=== PATIENT | male | born 1955 | race Two or more races ===

== ENCOUNTER 2021-01-16 08:38 | Outpatient (REF) | payer MEDICARE, SELFPAY ==
[2021-01-16 08:57] LABS: MANUAL DIFF FLAG NO
[2021-01-16 09:05] LABS: Basophils Percent Auto 0.6 % (0-2); Eosinophils Absolute Auto 0.5 X10*3/uL (0.0-0.4); Eosinophils Percent Auto 7.2 % (0-4); Hematocrit 41.1 % (42.0-52.0); Hemoglobin 13.4 g/dl (14.0-18.0); Imm Gran Abs Auto 0.02 X10*3/uL (0.00-0.03); Imm Gran Pct Auto 0.3 % (0.0-0.4); Mean Corpuscular HGB Conc 32.6 g/dl (31.0-36.0); Mean Corpuscular Hemoglobin 32.3 pg (27.0-33.0); Mean Platelet Volume 9.1 fL (9.4-12.4); Monocytes Absolute Auto 0.6 X10*3/uL (0.1-1.2); Monocytes Percent Auto 9.5 % (2-11); Neutrophils Absolute Auto 3.4 x10*3/uL (2.0-8.3); Neutrophils Percent Auto 52.4 % (45-73); Platelet Count 240 X10*3/uL (160-400); Red Blood Count 4.15 X10*6/uL (4.60-5.80); Red Cell Distribution Width 12.8 % (11.0-16.0); White Blood Count 6.5 X10*3/uL (4.8-10.8)
[2021-01-16 09:29] LABS: Alanine Aminotransferase 8 U/L (0-40); Albumin Level 4.5 g/dL (3.5-5.0); Alkaline Phosphatase 96 U/L (39-117); Anion Gap 10 (12-20); Aspartate Amino Transferase 18 U/L (5-37); Bilirubin Total 0.4 mg/dL (0.0-1.0); Blood Urea Nitrogen 25 mg/dL (9-16); Calcium 9.6 mg/dL (8.4-10.2); Carbon Dioxide 29 mmol/L (22-29); Chloride 106 mmol/L (96-108); Cholesterol 167 mg/dL; Estimated Glomerular Filt Rate > 60; Glucose Fasting 92 mg/dL (60-99); HDL Cholesterol 39 mg/dL; LDL Cholesterol Calculated 115 mg/dl; Potassium 4.1 mmol/L (3.3-5.1); Sodium 141 mmol/L (135-145); Total Protein 7.8 g/dL (6.5-8.0); Triglycerides 67 mg/dL
[2021-01-16 09:40] LABS: Appearance Urine CLEAR; Color Urine YELLOW; Glucose Urine UA NEG (NEG); Leukocyte Esterase Urine NEG (NEG); Nitrite Urine NEG (NEG); Specific Gravity - Urine 1.025 (1.005-1.025); UACC Culture Trigger NO; Urine Blood TRACE (NEG); Urine Ketones NEG (NEG); Urine Protein NEG (NEG-TRACE)
[2021-01-16 09:54] LABS: RBC Urine 0-2 /HPF (0); Squamous Epithelial Cell Urine 1+ /LPF
[2021-01-16 10:15] LABS: Prostate Specific Antigen 4.58 ng/mL (<0.05-4.0); TSH reflex Free T4 0.82 uIU/mL (0.32-4.0); Vitamin D 25-OH Total 21.7 ng/mL (>30)
[2021-01-16 10:21] LABS: Folate 6.7 ng/mL (> or = 4.0); Vitamin B12 349 pg/mL (200-900)
[2021-01-16 10:26] LABS: Syphilis Screen Nonreactive (Nonreactive)
[2021-01-17 13:12] LABS: Lyme Abs Screen <0.90 index
[2021-01-17 20:11] LABS: HCV Log PCR <1.18 NOT DETECTED Log IU/mL (NOT DETECTED); HepC Viral Load <15 NOT DETECTED IU/mL (NOT DETECTED)
== END 2021-01-16 08:39 | disposition home or self-care (01) ==
LOC: HO.LAB 08:38
PROVIDERS: PCP Internal Medicine; Visit Provider Internal Medicine
DX: I10 Essential (primary) hypertension (principal); E55.9 Vitamin D deficiency, unspecified; E78.00 Pure hypercholesterolemia, unspecified; E53.8 Deficiency of other specified B group vitamins; N40.0 Benign prostatic hyperplasia without lower urinary tract symptoms; R41.82 Altered mental status, unspecified; B19.20 Unspecified viral hepatitis C without hepatic coma
CPT/HCPCS: 36415; 80053; 80061; 81001; 82306; 82607; 82746; 84153; 84443; 85025; 86617; 86618; 86780; 87522

== ENCOUNTER 2021-03-30 12:41 | Outpatient (REF) | payer MEDICARE, SELFPAY ==
--- NOTE | ~2021-03-30 | CT_ITS ---
EXAMINATION: CT HEAD WITHOUT CONTRAST CLINICAL INFORMATION: Altered mental status. COMPARISON: None TECHNIQUE: Contiguous axial imaging was performed from the skull base to vertex without intravenous administration of contrast. This CT examination was performed using dose optimization techniques as appropriate, variously including the following: *Automated exposure control *Adjustment of mA and/or kV according to patient size (this includes techniques or standardized protocols for targeted exams where dose is matched to indication/reason for exam; i.e. extremities or head) *Use of iterative reconstruction technique DLP: 721 mGy-cm FINDINGS: There is no evidence of acute intracranial hemorrhage or territorial infarction. No abnormal mass effect or midline shift is seen. Mcgovern to white matter differentiation is well preserved. No extra-axial fluid collections are identified. The lateral ventricles are symmetrical in size and configuration with mild enlargement. The osseous structures and soft tissues are normal. The mastoid air cells and visualized portions of the paranasal sinuses are well aerated. CT/CT head/brain wo con IMPRESSION: No acute intracranial process seen. Mild cerebral volume loss.
== END 2021-03-30 12:42 | disposition home or self-care (01) ==
LOC: HO.CT 12:41
PROVIDERS: PCP Internal Medicine; Visit Provider Internal Medicine
DX: R41.82 Altered mental status, unspecified (principal)
CPT/HCPCS: 70450

== ENCOUNTER 2021-08-26 11:43 | Outpatient (REF) | payer MEDICARE, SELFPAY ==
[2021-08-26 12:00] LABS: MANUAL DIFF FLAG NO
[2021-08-26 13:00] LABS: Basophils Absolute Auto 0.1 X10*3/uL (0.0-0.2); Basophils Percent Auto 0.6 % (0-2); Eosinophils Absolute Auto 0.3 X10*3/uL (0.0-0.4); Eosinophils Percent Auto 3.1 % (0-4); Hematocrit 37.2 % (42.0-52.0); Hemoglobin 11.8 g/dl (14.0-18.0); Imm Gran Abs Auto 0.04 X10*3/uL (0.00-0.03); Imm Gran Pct Auto 0.5 % (0.0-0.4); Lymphocytes Absolute Auto 1.9 X10*3/uL (1.2-4.9); Lymphocytes Percent Auto 23.1 % (20-40); Mean Corpuscular HGB Conc 31.7 g/dl (31.0-36.0); Mean Corpuscular Hemoglobin 31.9 pg (27.0-33.0); Mean Corpuscular Volume 100.5 fL (80.0-98.0); Mean Platelet Volume 10.6 fL (9.4-12.4); Monocytes Absolute Auto 0.6 X10*3/uL (0.1-1.2); Monocytes Percent Auto 7.6 % (2-11); Neutrophils Absolute Auto 5.3 x10*3/uL (2.0-8.3); Neutrophils Percent Auto 65.1 % (45-73); Platelet Count 224 X10*3/uL (160-400); White Blood Count 8.2 X10*3/uL (4.8-10.8)
[2021-08-26 13:52] LABS: Prostate Specific Antigen 2.89 ng/mL (<0.05-4.0); TSH reflex Free T4 0.96 uIU/mL (0.32-4.0); Vitamin D 25-OH Total 29.5 ng/mL (>30)
[2021-08-26 13:56] LABS: Alanine Aminotransferase 7 U/L (0-40); Albumin Level 4.2 g/dL (3.5-5.0); Alkaline Phosphatase 82 U/L (39-117); Anion Gap 11 (12-20); Aspartate Amino Transferase 16 U/L (5-37); Bilirubin Total 0.3 mg/dL (0.0-1.0); Blood Urea Nitrogen 17 mg/dL (9-16); Calcium 9.2 mg/dL (8.4-10.2); Carbon Dioxide 27 mmol/L (22-29); Chloride 106 mmol/L (96-108); Cholesterol 166 mg/dL; Estimated Glomerular Filt Rate > 60; Glucose Fasting 56 mg/dL (60-99); HDL Cholesterol 39 mg/dL; LDL Cholesterol Calculated 116 mg/dl; Potassium 4.1 mmol/L (3.3-5.1); Sodium 140 mmol/L (135-145); Total Protein 7.7 g/dL (6.5-8.0); Triglycerides 58 mg/dL
[2021-08-26 14:04] LABS: Folate 8.5 ng/mL (> or = 4.0); Vitamin B12 401 pg/mL (200-900)
[2021-08-26 14:06] LABS: Appearance Urine CLEAR; Color Urine YELLOW; Glucose Urine UA NEG (NEG); Leukocyte Esterase Urine NEG (NEG); Nitrite Urine NEG (NEG); PH 6.5 (5.0-8.0); Urine Blood NEG (NEG); Urine Ketones NEG (NEG); Urine Protein NEG (NEG-TRACE)
[2021-08-27 05:30] LABS: ~HepC Num1 15.76 S/CO (0.00-0.79); ~Hepatitis C Antibody Reactive (Nonreactive)
[2021-08-29 13:07] LABS: HCV Log PCR <1.18 NOT DETECTED Log IU/mL (NOT DETECTED); HepC Viral Load <15 NOT DETECTED IU/mL (NOT DETECTED)
== END 2021-08-26 11:44 | disposition home or self-care (01) ==
LOC: HO.LAB 11:43
PROVIDERS: PCP Internal Medicine; Visit Provider Internal Medicine
DX: Z00.00 Encounter for general adult medical examination without abnormal findings (principal); Z12.5 Encounter for screening for malignant neoplasm of prostate; R41.82 Altered mental status, unspecified; E78.00 Pure hypercholesterolemia, unspecified; I10 Essential (primary) hypertension; E55.9 Vitamin D deficiency, unspecified; N40.0 Benign prostatic hyperplasia without lower urinary tract symptoms; Z86.19 Personal history of other infectious and parasitic diseases
CPT/HCPCS: 36415; 80053; 80061; 81003; 82306; 82607; 82746; 84153; 84443; 85025; 86803; 87522

== ENCOUNTER 2021-12-28 14:20 | Outpatient (REF) | payer OTHER, SELFPAY ==
--- NOTE | ~2021-12-28 | XR_ITS ---
EXAMINATION: XR KNEE, RIGHT CLINICAL INFORMATION: Pain. COMPARISON: No similar priors available for comparison. TECHNIQUE: Four views of the right knee. FINDINGS: Orthopedic fixation plate with 6 traversing screws along the tibial plateau/proximal tibia. No evidence of hardware failure. Chronic appearing deformity along the lateral surface of the proximal tibia. No acutely displaced fractures. No subluxation. Moderate tricompartmental degenerative osteoarthritis. No erosions or chondrocalcinosis. Small joint effusions. Scattered vascular calcifications. XR/XR knee RT 4V IMPRESSION: 1. No acutely displaced fractures. No subluxation. 2. Orthopedic fixation plate along the tibial plateau/proximal tibia without evidence of hardware failure. 3. Moderate tricompartmental degenerative osteoarthritis. 4. Small joint effusions.
== END 2021-12-28 14:21 | disposition home or self-care (01) ==
LOC: HO.XRAY 14:20
PROVIDERS: PCP Internal Medicine; Visit Provider Internal Medicine
DX: M25.561 Pain in right knee (principal); T84.498A Other mechanical complication of other internal orthopedic devices, implants and grafts, initial encounter
CPT/HCPCS: 73564

== ENCOUNTER → 2022-06-01 16:07 | Outpatient (BNVA) | payer OTHER, SELFPAY | PROVIDERS: PCP Internal Medicine; Visit Provider Nurse Practitioner Family | DX: R10.84 Generalized abdominal pain (principal); R63.4 Abnormal weight loss; D64.9 Anemia, unspecified | CPT/HCPCS: 99202 ==

== ENCOUNTER 2022-06-01 17:56 | Outpatient (REF) | payer OTHER, SELFPAY ==
[2022-06-03 15:01] LABS: H Pylori Breath Test Negative (Negative)
== END 2022-06-01 17:57 | disposition home or self-care (01) ==
LOC: HO.LNP 17:56
PROVIDERS: Visit Provider Nurse Practitioner Family
DX: R10.9 Unspecified abdominal pain (principal); R63.4 Abnormal weight loss; Z11.0 Encounter for screening for intestinal infectious diseases
CPT/HCPCS: 83013

== ENCOUNTER 2022-06-24 10:04 | Outpatient (REF) | payer OTHER, SELFPAY ==
[2022-06-24 10:49] LABS: Hematocrit 33.7 % (42.0-52.0); Hemoglobin 10.4 g/dl (14.0-18.0); Mean Corpuscular HGB Conc 30.9 g/dl (31.0-36.0); Mean Corpuscular Hemoglobin 29.9 pg (27.0-33.0); Mean Corpuscular Volume 96.8 fL (80.0-98.0); Mean Platelet Volume 8.9 fL (9.4-12.4); Platelet Count 405 X10*3/uL (160-400); Red Blood Count 3.48 X10*6/uL (4.60-5.80); White Blood Count 10.2 X10*3/uL (4.8-10.8)
[2022-06-24 11:40] LABS: Alanine Aminotransferase 7 U/L (0-40); Albumin Level 3.5 g/dL (3.5-5.0); Alkaline Phosphatase 78 U/L (39-117); Anion Gap 13 (12-20); Aspartate Amino Transferase 15 U/L (5-37); Bilirubin Total 0.4 mg/dL (0.0-1.0); Blood Urea Nitrogen 19 mg/dL (9-16); C Reactive Protein 8.51 mg/dL (< or = 0.50); Calcium 9.1 mg/dL (8.4-10.2); Carbon Dioxide 26 mmol/L (22-29); Chloride 103 mmol/L (96-108); Estimated Glomerular Filt Rate > 60; Glucose Random 109 mg/dL (60-115); Iron 37 mcg/dL (45-160); Lipase 80 U/L (8-78); Percent Iron Saturation 19 % (15-50); Potassium 4.2 mmol/L (3.3-5.1); Sodium 138 mmol/L (135-145); Total Iron Binding Capacity 190 mcg/dL (228-428); Total Protein 7.3 g/dL (6.5-8.0); Unsaturated Iron Binding 153 ug/dL
[2022-06-24 11:51] LABS: Folate 6.4 ng/mL (> or = 4.0); TSH reflex Free T4 1.57 uIU/mL (0.32-4.0); Vitamin B12 545 pg/mL (200-900)
[2022-06-29 14:47] LABS: Transglutaminase Ab IgG 1.4 U/mL; Transglutaminase IgA <1.0 U/mL
[2022-07-01 12:58] LABS: Vitamin D 25-OH, D2 <4 ng/mL; Vitamin D 25-OH, D3 18 ng/mL; Vitamin D 25-OH, Total 18 ng/mL (30-100)
== END 2022-06-24 10:05 | disposition home or self-care (01) ==
LOC: HO.LAB 10:04
PROVIDERS: PCP Internal Medicine; Visit Provider Nurse Practitioner Family
DX: E55.9 Vitamin D deficiency, unspecified (principal); R19.7 Diarrhea, unspecified; R10.9 Unspecified abdominal pain; K59.00 Constipation, unspecified; D64.9 Anemia, unspecified; K21.9 Gastro-esophageal reflux disease without esophagitis; K58.9 Irritable bowel syndrome, unspecified
CPT/HCPCS: 36415; 80053; 82306; 82607; 82746; 83540; 83690; 84443; 85027; 86140; 86364

== ENCOUNTER 2022-07-01 14:11 | Outpatient (REF) | payer OTHER, SELFPAY ==
[2022-07-09 16:59] LABS: Pancreatic Elastase-1 >500 mcg/g
== END 2022-07-01 14:12 | disposition home or self-care (01) ==
LOC: HO.LNP 14:11
PROVIDERS: Visit Provider Nurse Practitioner Family
DX: R10.9 Unspecified abdominal pain (principal)
CPT/HCPCS: 82656

== ENCOUNTER → 2022-07-21 11:46 | Outpatient (BNVA) | payer OTHER, SELFPAY | PROVIDERS: PCP Internal Medicine; Visit Provider Nurse Practitioner Family | DX: Z01.818 Encounter for other preprocedural examination (principal); R10.84 Generalized abdominal pain; K21.9 Gastro-esophageal reflux disease without esophagitis; Z79.899 Other long term (current) drug therapy | CPT/HCPCS: 99212 ==

== ENCOUNTER 2022-07-23 | Outpatient (REF) | payer OTHER, SELFPAY ==
--- NOTE | ~2022-07-23 | CT_ITS ---
EXAMINATION: LUNG CANCER SCREENING CT CHEST WITHOUT CONTRAST CLINICAL INFORMATION: Current smoker with 44 pack year history COMPARISON: None TECHNIQUE: Multidetector volumetric CT imaging of the chest was obtained noncontrast using low dose screening CT technique. Axial thin section 0.625 mm reformations in soft tissue and lung windows were obtained. Sagittal and coronal reformations were obtained. Axial MIP images were also created and reviewed. This CT examination was performed using dose optimization techniques as appropriate, variously including the following: *Automated exposure control *Adjustment of mA and/or kV according to patient size (this includes techniques or standardized protocols for targeted exams where dose is matched to indication/reason for exam; i.e. extremities or head) *Use of iterative reconstruction technique TOTAL EXAM DLP: 38.16 mGy-cm FINDINGS: PULMONARY NODULES: Extensive fibronodular pleural-parenchymal scarring. The largest discrete nodular component measures 8.1 mm mean diameter as seen on series 5, image 107. This nodular opacity, however, does communicate with the pleural surface. Additional plaque-like pleural-parenchymal scarring present along the lateral right lung apex, measuring up to 3.5 x 1.0 cm transaxially. There are scattered calcified granulomata as well. LUNGS / PLEURA: Moderate emphysema. Diffuse bronchial wall thickening and mild bronchiectasis.. No pleural effusion or pneumothorax. MEDIASTINUM / ALEENA: Heart normal in size without pericardial effusion. Great vessels normal caliber. No lymphadenopathy. Coronary calcifications present. Imaged thyroid gland unremarkable. CHEST WALL / AXILLA: Unremarkable. UPPER ABDOMEN: Simple cyst in the right kidney are benign. No follow-up imaging recommended. Coarse calcifications in the pancreatic head with questionable low density change possibly pancreatic cysts. Pancreatic duct appears dilated. OSSEOUS STRUCTURES: No acute or suspicious osseous abnormalities. CT/CT lung screening IMPRESSION: * Extensive biapical fibronodular pleural-parenchymal scarring strongly suspected to be postinfectious/postinflammatory nature. Nevertheless, given the somewhat nodular appearance of these findings at the right lung apex, a short interval follow-up exam or PET/CT would lend further specificity, particularly in light of the fact that the patient has no recent CT examinations available for comparison at this institution. * Moderate emphysema. * Coarse calcifications within the pancreatic head and possible cystic change. Recommend dynamic MRI of the abdomen for further evaluation. ASSESSMENT: Lung RADS category: 4 A. Suspicious. Findings for which additional diagnostic testing and/or tissue sampling is recommended. Three-month low-dose CT is recommended. PET/CT scan may be used when there is a greater than or equal to 8 mm solid component. Probability of malignancy 5-15%. INCIDENTAL FINDINGS (S CATEGORY): None. RECOMMENDATION: Short interval follow-up CT chest in 3 months or PET/CT. Dynamic MRI of the abdomen.
== END 2022-07-23 00:01 ==
LOC: HO.CT
PROVIDERS: PCP Internal Medicine; Visit Provider Physician Assistant Medical
DX: Z12.2 Encounter for screening for malignant neoplasm of respiratory organs (principal); F17.210 Nicotine dependence, cigarettes, uncomplicated
CPT/HCPCS: 71271; G0296

== ENCOUNTER 2022-07-23 15:33 | Outpatient (REF) | payer OTHER, SELFPAY | END 2022-07-23 15:34 | disposition home or self-care (01) | LOC: HO.CT 15:33 | PROVIDERS: PCP Internal Medicine; Visit Provider Physician Assistant Medical | DX: Z13.89 Encounter for screening for other disorder (principal) ==

== ENCOUNTER 2022-08-20 09:24 | Outpatient (REF) | payer OTHER, SELFPAY ==
--- NOTE | ~2022-08-20 | US_ITS ---
EXAMINATION: US ABDOMEN COMPLETE CLINICAL INFORMATION: Abnormal weight loss. COMPARISON: CT abdomen 10/13/2016. Ultrasound abdomen complete 12/22/2015. TECHNIQUE: Real-time imaging of the abdominal viscera. FINDINGS: PANCREAS: Dilated and tortuous main pancreatic duct. Parenchymal calcifications. ABDOMINAL AORTA: Atherosclerotic changes. INFERIOR VENA CAVA: Visualized portions are normal. LIVER: The liver is normal in size. The liver contour is normal. Parenchymal echogenicity is normal. No focal hepatic lesion. There is no intrahepatic biliary duct dilatation seen. GALLBLADDER: Negative sonographic Granado's sign. The gallbladder is physiologically distended. Multiple mobile gallstones are present. No evidence of gallbladder wall thickening or pericholecystic fluid. COMMON BILE DUCT: Normal in caliber measuring 0.5 cm in diameter. RIGHT KIDNEY: Upper pole cyst measures 1.5 x 1.3 x 1.3 cm. No hydronephrosis or renal calculi. The kidney measures 10.0 cm in maximum dimension. LEFT KIDNEY: Lower pole cyst measures 2.6 x 2.3 x 2.1 cm. Lower pole cyst measures 0.6 x 0.4 x 0.6 cm. No hydronephrosis or renal calculi. The kidney measures 10.0 cm in maximum dimension. SPLEEN: The spleen measures 11.3 cm in maximum dimension. FREE FLUID: None. ADDITIONAL FINDINGS: Small pericardial effusion is incidentally noted. US/US abdomen complete IMPRESSION: Findings suggestive of chronic pancreatitis with dilatation of the main pancreatic duct and parenchymal calcifications. MRI/MRCP may be considered for further characterization. Cholelithiasis without sonographic evidence of acute cholecystitis. Bilateral renal cysts. No suspicious features. Small pericardial effusion.
== END 2022-08-20 09:25 | disposition home or self-care (01) ==
LOC: HO.US 09:24
PROVIDERS: PCP Internal Medicine; Visit Provider Nurse Practitioner
DX: R10.84 Generalized abdominal pain (principal); R63.4 Abnormal weight loss
CPT/HCPCS: 76700

== ENCOUNTER 2022-08-31 10:14 | Day surgery (SDC) | payer OTHER, SELFPAY ==
--- NOTE | 2022-08-30 09:59 | P.CONAN_ITS ---
Documented by User: Maegan Winn NP 08/30/22 10:00 HPI - Anesthesia Eval Consult details Narrative: 67yo M for Upper Endoscopy and Colonoscopy [facility] Active Problems Active Problems: All Active Problems (Updated 07/30/22 @ 14:26 by XIN Gil) Severely underweight adult (Acute) Weight loss, abnormal (Acute) Nicotine dependence, cigarettes, uncomplicated (Acute) Alcoholic dementia (Acute) Mild cognitive impairment (Acute) Depression (Acute) Anxiety (Acute) Insomnia (Acute) Pure hypercholesterolemia (Acute) Abdominal pain (Acute) Exposed orthopaedic hardware (Acute) Right knee pain (Acute) Past Medical History Medical History (Updated 08/05/22 @ 11:09 by Salina Isbell PA-C) Abdominal pain Anxiety Depression History of hepatitis C Nicotine dependence, cigarettes, uncomplicated Pure hypercholesterolemia Tubular adenoma Family History Family History Father Medical history unknown Mother Diabetes Maternal Grandmother Lung cancer Maternal Uncle Colon cancer CVD (cardiovascular disease) Other Substance abuse Surgical History Surgical History History of cataract surgery History of colonoscopy History of shoulder surgery History of surgery on lower extremity Social History Social History (Updated 07/23/22 @ 15:29 by Salina Isbell PA-C) Housing: Apartment Alcohol intake: former Patient Tobacco Use Status: Current everyday Tobacco user Tobacco use type: Cigarette Years Smoked: (onset 13yo, 1ppd x 54yrs, 50pyh) e-Cigarette/Vaping Use: Never Used Second Hand Smoke Exposure: Yes Advance Directives: No Advance Directives Information Provided: Yes service: No Current occupational status: disabled 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) Hearing needs: No Vision needs: No Meds Allergies Allergy/AdvReac Type Severity Reaction Status Date / Time No Known Allergies Allergy Verified 07/21/22 12:02 [No Known Allergies*] Home Medications Medication Instructions Recorded Confirmed Last Taken Type prazosin 1 mg capsule 1 mg PO BEDTIME 01/13/21 08/27/22 Unknown History quetiapine 100 mg tablet 100 mg PO BEDTIME 01/13/21 08/27/22 Unknown History quetiapine 50 mg tablet 50 mg PO BEDTIME 01/13/21 08/27/22 Unknown History donepezil 5 mg tablet 5 mg PO DAILY 08/26/21 08/27/22 Unknown History Exam Exam Date and Time: August 30, 2022 0959 Pertinent Lab Results Pertinent Lab Results: Laboratory Tests 06/24/22 06/24/22 10:16 10:16 WBC 10.2 Hgb 10.4 L Hct 33.7 L Plt Count 405 H D Sodium 138 Potassium 4.2 Chloride 103 Carbon Dioxide 26 BUN 19 H Creatinine 0.96 Assessment and Plan Assessment Anesthesia Assessment: Chart Reviewed Documented by User: Kristy Cuevas MD 08/31/22 10:58 [facility] Past Medical History Medical History (Updated 08/05/22 @ 11:09 by Salina Isbell PA-C) Abdominal pain Anxiety Depression History of hepatitis C Nicotine dependence, cigarettes, uncomplicated Pure hypercholesterolemia Tubular adenoma Family History Family History Father Medical history unknown Mother Diabetes Maternal Grandmother Lung cancer Maternal Uncle Colon cancer CVD (cardiovascular disease) Other Substance abuse Family history of problems with anesthesia: No Surgical History Surgical History History of cataract surgery History of colonoscopy History of shoulder surgery History of surgery on lower extremity History of Problems with Anesthesia: No Social History Social History (Updated 07/23/22 @ 15:29 by Salina Isbell PA-C) Housing: Apartment Alcohol intake: former Patient Tobacco Use Status: Current everyday Tobacco user Tobacco use type: Cigarette Years Smoked: (onset 13yo, 1ppd x 54yrs, 50pyh) e-Cigarette/Vaping Use: Never Used Second Hand Smoke Exposure: Yes Advance Directives: No Advance Directives Information Provided: Yes service: No Current occupational status: disabled 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) Hearing needs: No Vision needs: No Meds Allergies Allergy/AdvReac Type Severity Reaction Status Date / Time No Known Allergies Allergy Verified 07/21/22 12:02 [No Known Allergies*] Home Medications Medication Instructions Recorded Confirmed Last Taken Type prazosin 1 mg capsule 1 mg PO BEDTIME 01/13/21 08/27/22 Unknown History quetiapine 100 mg tablet 100 mg PO BEDTIME 01/13/21 08/27/22 Unknown History quetiapine 50 mg tablet 50 mg PO BEDTIME 01/13/21 08/27/22 Unknown History donepezil 5 mg tablet 5 mg PO DAILY 08/26/21 08/27/22 Unknown History Exam Airway Mallampati Class: III TM Dist: >3cm Neck ROM: Full Denture: Upper and Lower Assessment and Plan Assessment Anesthesia Assessment: Anesthesia Plan Discussed Final Anesthetic Review Family History of Problems with Anesthesia: No History of Problems with Anesthesia: No NPO: Yes ASA Class: III Final Preanesthetic Review: No Changes in Pt Med Stat, Meds/Allgs Chart Reviewed, Consent Obtained/Reviewed and Anes Risks/Benef Reviewed Patient Risk: Low Procedure Risk: Low Anesthetic Plan Anesthetic Plan: MAC: Disposition: Standard PACU
[2022-08-31 11:15] VITALS: BP 105/48; PULSE 84; RESP 16; TEMP 36.1; O2SAT 100; BMI 14.9
[2022-08-31] MEDS: Lactated Ringers 1,000 ML 100 ML IVCONT (11:22)
--- NOTE | 2022-08-31 11:23 | MHC.SHP ---
Pre-Procedural Eval Section A Date of Service: 08/31/22 Section B Chief Complaint: Generalized abdominal pain,weight loss, Relevant Family History (Specify if Yes): No Relevant Social History: Tobacco Use Present Medications: see Short Stay Collaborative assessment Medical History: Significant History (Abdominal pain Anxiety Depression History of hepatitis C Nicotine dependence, cigarettes, uncomplicated Pure hypercholesterolemia Tubular adenoma) History of Previous Operations: Relevant previous surgery/procedure and date(s) (History of cataract surgery History of colonoscopy History of shoulder surgery History of surgery on lower extremity) Allergies: Allergies Allergy/AdvReac Type Severity Reaction Status Date / Time No Known Allergies Allergy Verified 07/21/22 12:02 [No Known Allergies*] Review of Systems Sugical H&P ROS: Negative: Constitution, Cardiovascular, Respiratory, Neurological, Psychiatric, Hem-Onc, Allergic/Immunologic, Gastrointestinal, Genitourinary, Musculoskeletal, Integumentary, Endocrine and Eyes/Ears/Nose/Throat Exam Surgical H&P Exam: Normal: HEENT, Normal: Heart, Normal: Lungs, Normal: Extremities, Normal: Abdomen, Normal: Skin and Normal: Neurological Exam Comment: Thin,clubbing of hands noted Plan Diagnosis/Plan: Unchanged I have reviewed the history and physical and performed a pertinent physical examination on my patient. No changes have occurred unless specified. Time Spent With Patient Time: Total time managing care of this patient today ____ minutes.
--- NOTE | 2022-08-31 11:26 | W.PM.OPN ---
Operative Note Operative Note Date of Service: 08/31/22 Narrative: Procedure Description: EGD Indication: abdominal pain and weight loss Anesthesia: MAC FLEXIBLE TRANSORAL UPPER GASTROINTESTINAL ENDOSCOPY UPPER ENDOSCOPY Consent: Indications for the procedure and potential complications of bleeding, perforation, reaction to medications and missed diagnosis were discussed with the patient and informed consent was obtained. Instrument: Olympus GIF H 190 J mid size upper endoscope Monitoring: Vital signs and clinical assessment, continuous EKG monitoring, Pulse oximetry, Carbon Dioxide monitoring and blood pressure monitoring were done throughout the procedure. Procedure: The patient was placed in the left lateral decubitis position and pre-procedure medications were administered and a bite block was placed. The endoscope was inserted into the mouth and advanced under direct vision to the third part of duodenum. A careful inspection was made as the upper endoscope was withdrawn including a retroflexed examination of the proximal stomach; Findings and interventions are described below. Findings: Larynx:normal Esophagus: GE junction at 41 cm, diaphragm hiatus at 43 cm, consistent with 2 cm sliding hiatal hernia, bogginess and erythema at GEJ, bx taken from here and distal esophagus Stomach: Patchy gastric erythema with induration and granularity at the antrum. Biopsies were obtained from antrum and body in separate jars. Grade 2 flap valve on retroflexed examination of the cardia. Duodenum: Normal bulb and descending duodenum, bx taken Intervention: Biopsies as noted above Impression/Findings: gastritis hiatal hernia esophagitis PLAN: await bx colonoscopy was postponed today due to brown outflow, can r/s with 2 d of clears next time GERD precautions
[2022-08-31 11:47] VITALS: BP 101/58; PULSE 78; RESP 16; TEMP 36.2
[2022-08-31 12:00] VITALS: BP 95/57; PULSE 68; RESP 16; O2SAT 100
[2022-08-31 12:06] VITALS: BP 98/58; PULSE 72; RESP 16; O2SAT 99
[2022-08-31 12:14] VITALS: BP 101/60; PULSE 71; RESP 16; O2SAT 100
[2022-08-31 12:26] VITALS: BP 102/63; PULSE 70; RESP 16; TEMP 36.7; O2SAT 100
== END 2022-08-31 13:15 | disposition home or self-care (01) ==
PROVIDERS: PCP Internal Medicine; Visit Provider Internal Medicine Gastroenterology
PROC: 0DJ08ZZ Inspection of Upper Intestinal Tract, Via Natural or Artificial Opening Endoscopic (ICD-10-PCS; CPT 43235; principal; 2022-08-31 11:40)
DX: K29.50 Unspecified chronic gastritis without bleeding (principal); K20.80 Other esophagitis without bleeding; K44.9 Diaphragmatic hernia without obstruction or gangrene; R63.6 Underweight; R63.4 Abnormal weight loss; Z68.1 Body mass index [BMI] 19.9 or less, adult; D50.9 Iron deficiency anemia, unspecified; E78.00 Pure hypercholesterolemia, unspecified; B19.20 Unspecified viral hepatitis C without hepatic coma; F10.27 Alcohol dependence with alcohol-induced persisting dementia; F17.210 Nicotine dependence, cigarettes, uncomplicated; Z79.899 Other long term (current) drug therapy
CPT/HCPCS: 43239; 88305; 88342

== ENCOUNTER 2022-10-11 12:56 | Outpatient (AMB) | payer OTHER, SELFPAY ==
[2022-10-11 13:27] VITALS: BP 105/61; PULSE 71; BMI 14.1
--- NOTE | 2022-10-11 13:27 | A.OFFVIS_ITS ---
Intake Vital Signs 10/11/22 13:27 Height 5 ft 9 in Weight 95 lb 10.89 oz BMI 14.1 BP 105/61 Blood Pressure Location Lt brachial Position Sitting Pulse 71 Intake Visit Reasons: colonoscopy screening Intake Note: Michael presents in office as a est.patient a colonoscopy screening. 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 Will order CT scan. Patient does have a mild pancreatitis it could be chronic. Screen for colon cancer What to expect before during and after procedure discussed with patient. Patient is on low-dose aspirin. No trouble with anesthesia in the past. Patient denies any cardiac or respiratory symptoms. GERD (gastroesophageal reflux disease) Continue pantoprazole. Discussed with patient avoiding dietary triggers in late night snacking. Will send patient for upper endoscopy to rule out gastritis, esophagitis, duodenitis, gastric or peptic ulcers, H pylori, Sands's. I will see him after the procedure, sooner on as needed basis. Patient is agreeable to this plan and verbalizes understanding of instructions. He was given the opportunity to ask questions and all questions answered. ? Thank you for allowing me to participate in his care Plan Orders Orders Blood Urea Nitrogen 07/21/22 R10.11 Creatinine 07/21/22 R10.11 Medications New bisacodyl (Dulcolax (bisacodyl)) take 2 tabs at noon the day before your colonoscopy 10 mg (2 x 5 mg) PO ONCE 1 day 2 tabs 0RF Z12.11 polyethylene glycol 3350 (Miralax) As directed by gastroenterology department at [facility] 238 grams PO ONCE 238 grams 0RF Z12.11 UPPER ENDOSCOPY: Findings: Larynx:normal Esophagus: GE junction at 41? cm, diaphragm hiatus at 43 cm, consistent with 2 cm sliding hiatal hernia, bogginess and erythema at GEJ, bx taken from here and distal esophagus Stomach: Patchy gastric erythema with induration and granularity at the antrum. Biopsies were obtained from antrum and body in separate jars. Grade 2 flap valve on retroflexed examination of the cardia. Duodenum: Normal bulb and descending duodenum, bx taken Intervention: Biopsies as noted above Impression/Findings: gastritis hiatal hernia esophagitis PLAN: await bx colonoscopy was postponed today due to brown outflow, can r/s with 2 d of clears next time GERD precautions PATHOLOGY RESULTS: Diagnosis A.? Duodenum, biopsy:? Duodenal mucosa within normal limits. B.? Stomach, antrum, biopsy:? Antral-type and oxyntic mucosa with mild chronic inactive inflammation and intestinal metaplasia; negative for dysplasia; no Helicobacter organisms seen. C.? Stomach, body, biopsy:? Oxyntic mucosa with mild chronic inactive inflammation; no Helicobacter organisms seen. D.? EG junction, biopsy: - Cardiac-type mucosa with mild chronic inactive inflammation; no intestinal metaplasia seen. - Squamous mucosa within normal limits. E.? Esophagus, distal, biopsy:? Squamous epithelium within normal limits; no inflammation seen. [facility] Medical History (Updated 10/11/22 @ 20:12 by Aliya Sena, [facility]) Abdominal pain Anxiety Depression Gastritis History of hepatitis C Nicotine dependence, cigarettes, uncomplicated Pure hypercholesterolemia Tubular adenoma Surgical History History of cataract surgery History of colonoscopy History of shoulder surgery History of surgery on lower extremity Family History Father Medical history unknown Mother Diabetes Maternal Grandmother Lung cancer Maternal Uncle Colon cancer CVD (cardiovascular disease) Other Substance abuse Social History Housing: Apartment Alcohol intake: former Patient Tobacco Use Status: Never used Tobacco Tobacco use type: Cigarette Years Smoked: (onset 13yo, 1ppd x 54yrs, 50pyh) e-Cigarette/Vaping Use: Never Used Second Hand Smoke Exposure: Yes service: No Current occupational status: disabled 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) Hearing needs: No Vision needs: No Review of Systems Const Denies weight gain and Denies weight loss ENT Reports no additional complaints, Denies dysphagia and Denies odynophagia Card Reports no additional complaints Resp Reports no additional complaints GI Reports abdominal pain (Epigastric), Denies belching, Denies melena, Reports bloating, Denies change in bowel habits, Denies dysphagia, Denies excessive flatus, Reports dyspepsia, Reports heartburn, Denies diarrhea, Denies loose stools, Denies nausea, Denies odynophagia and Denies vomiting Reports no additional complaints Musc Reports no additional complaints Neuro Reports no additional complaints Psych Reports no additional complaints Endo Reports no additional complaints Physical Exam Vital Signs: Last Vital Signs Pulse 71 10/11/22 13:27 BP 105/61 10/11/22 13:27 BMI result Body Mass Index 14.1 Const General: healthy appearing, no acute distress and well developed Nutritional Appearance: malnourished Orientation/consciousness: patient oriented x3 HEENT Head: Yes normal to inspection, Yes normocephalic and Yes atraumatic Face and sinus: Yes normal facial exam Mouth: Normal oral and palatal mucosa present Throat: Yes posterior oropharynx normal, Yes tonsils normal and Yes uvula midline Eyes General: appearance normal, both eyes and all related structures Neck Neck: Yes normal visual inspection, Yes full ROM and Yes trachea midline Thyroid: Thyroid normal Resp Effort & Inspection: normal respiratory effort, able to speak in complete sentences, no tracheal deviation and symmetric chest movement Auscultation: clear to auscultation bilaterally Cardio Rate: regular rate Heart sounds: S1 normal heart sound present and S2 normal heart sound present GI Inspection: Yes normal to inspection and No distended Palpation (GI): Soft to palpation, not firm, nontender and No hepatosplenomegaly present Auscultation: normal bowel sounds General: Yes no CVA tenderness Back/Spine/Pelvis Back: no CVA tenderness Skin General skin exam: elasticity normal, turgor normal and dry skin Neuro General: patient oriented x3 Psych Appearance: grossly normal Mental Status: mental status grossly normal Speech and movement: Normal speech and movement present Affect: normal affect Assessment & Plan Assessment & Plan (1) Severely underweight adult: Code(s): R63.6 - Underweight Plan: Patient continues to lose weight. Patient does not much appetite. Patient's family is present. Patient's nephew takes care of him and he states that he drinks 10 cups of coffee a day and smokes cigarettes each time he drinks coffee. Patient was encouraged to stop drinking coffee or at least decrease the amount to 1 or 2 cups a day. Protein shakes encouraged instead. (2) Abdominal pain: Code(s): R10.9 - Unspecified abdominal pain Qualifiers: Abdominal location: epigastric Qualified Code(s): R10.13 - Epigastric pain Plan: Epigastric discomfort. Patient was diagnosed with gastritis and esophagitis. Continue PPI treatment as well as sucralfate at bedtime. (3) Gastritis: Code(s): K29.70 - Gastritis, unspecified, without bleeding Qualifiers: Gastritis type: other gastritis Chronicity: chronic Gastritis bleeding: without bleeding Qualified Code(s): K29.50 - Unspecified chronic gastritis without bleeding Plan: PPI and sucralfate. Avoid dietary triggers (4) Screen for colon cancer: Code(s): Z12.11 - Encounter for screening for malignant neoplasm of colon Plan: Patient had suboptimal prep and had not gone for colonoscopy. Patient will do 1 day clears and will do Dulcolax 1 week before the procedure. Patient yearly underweight and clear liquids 2 days before procedure recommended (5) GERD (gastroesophageal reflux disease): Code(s): K21.9 - Gastro-esophageal reflux disease without esophagitis Qualifiers: Esophagitis presence: with esophagitis Esophagitis bleeding: without hemorrhage Qualified Code(s): K21.00 - Gastro-esophageal reflux disease with esophagitis, without bleeding Plan: As mentioned above patient will continue to take PPI. For now will try it once a day with sucralfate at bedtime. Avoid dietary triggers like coffee. Eat small amounts and more often. Patient was also encouraged to stop smoking. (6) Esophagitis: Code(s): K20.90 - Esophagitis, unspecified without bleeding Plan: Esophagitis found on upper endoscopy. Will repeat upper endoscopy on as needed basis. Patient encouraged avoiding culprit, stop smoking. Avoid eating late at night I will see patient after the procedure, sooner on as needed basis. Patient is agreeable to this plan and verbalizes understanding of instructions. He was given the opportunity to ask questions and all questions answered. Thank you for allowing me to participate in care Medications: New bisacodyl (Dulcolax (bisacodyl)) Start taking 2 tablet every night 7 days before the procedure and 1 day before procedure take 2 tablets at noon time followed by MiraLax prep 10 mg (2 x 5 mg) PO BEDTIME 14 tabs 0RF Z12.11 - Encounter for screening for malignant neoplasm of colon sucralfate 10 mL PO BEDTIME 400 mL 3RF K21.9 - Gastro-esophageal reflux disease without esophagitis Refilled polyethylene glycol 3350 (Miralax) As directed by gastroenterology department at [facility] 238 grams PO ONCE 238 grams 0RF Z12.11 - Encounter for screening for malignant neoplasm of colon Discontinued bisacodyl (Dulcolax (bisacodyl)) take 2 tabs at noon the day before your colonoscopy Discontinued Reason: Doctor's Order 10 mg (2 x 5 mg) PO ONCE 1 day 2 tabs 0RF Z12.11 - Encounter for screening for malignant neoplasm of colon Coding Level of Care Code Est Pt Level 4 (33166) Diagnoses Severely underweight adult R63.6 Abdominal pain R10.13 Abdominal location: epigastric Gastritis K29.50 Gastritis type: other gastritis Chronicity: chronic Gastritis bleeding: without bleeding Screen for colon cancer Z12.11 GERD (gastroesophageal reflux disease) K21.00 Esophagitis presence: with esophagitis Esophagitis bleeding: without hemorrhage Esophagitis K20.90 Time Spent (min) 45 Comment 25 minute spent with patient and additional 20 minutes spent reviewing his records
== END 2022-10-11 14:30 | disposition home or self-care (01) ==
PROVIDERS: PCP Internal Medicine; Visit Provider Nurse Practitioner Family
DX: R63.6 Underweight (principal); R10.13 Epigastric pain; K29.50 Unspecified chronic gastritis without bleeding; Z12.11 Encounter for screening for malignant neoplasm of colon; K21.00 Gastro-esophageal reflux disease with esophagitis, without bleeding; K20.90 Esophagitis, unspecified without bleeding
CPT/HCPCS: 99214

== ENCOUNTER → 2022-10-11 12:56 | Outpatient (BNVA) | payer OTHER, SELFPAY | PROVIDERS: PCP Internal Medicine; Visit Provider Nurse Practitioner Family | DX: R63.6 Underweight (principal); R10.13 Epigastric pain; K21.00 Gastro-esophageal reflux disease with esophagitis, without bleeding; K29.50 Unspecified chronic gastritis without bleeding; F17.210 Nicotine dependence, cigarettes, uncomplicated; Z68.1 Body mass index [BMI] 19.9 or less, adult | CPT/HCPCS: 99212 ==

== ENCOUNTER 2022-10-20 10:00 | Day surgery (SDC) | payer OTHER, SELFPAY ==
--- NOTE | 2022-10-19 10:54 | HO.ANESPROP2 ---
Documented by User: Maegan Winn NP 10/19/22 10:57 HPI - Anesthesia Eval Consult details Narrative: 67yo M for Colonoscopy s/p EGD and [place] 08/2022 with TIVA PMFSH Active Problems Active Problems: All Active Problems (Updated 10/11/22 @ 20:12 by Aliya Sena, [facility]) Gastritis (Acute) Severely underweight adult (Acute) Weight loss, abnormal (Acute) Nicotine dependence, cigarettes, uncomplicated (Acute) Alcoholic dementia (Acute) Mild cognitive impairment (Acute) Depression (Acute) Anxiety (Acute) Insomnia (Acute) Pure hypercholesterolemia (Acute) Abdominal pain (Acute) Exposed orthopaedic hardware (Acute) Right knee pain (Acute) Past Medical History Medical History Abdominal pain Anxiety Depression Gastritis History of hepatitis C Nicotine dependence, cigarettes, uncomplicated Pure hypercholesterolemia Tubular adenoma Family History Family History Father Medical history unknown Mother Diabetes Maternal Grandmother Lung cancer Maternal Uncle Colon cancer CVD (cardiovascular disease) Other Substance abuse Family history of problems with anesthesia: No Surgical History Surgical History History of cataract surgery History of colonoscopy History of shoulder surgery History of surgery on lower extremity History of Problems with Anesthesia: No Social History Social History Housing: Apartment Alcohol intake: former Patient Tobacco Use Status: Current everyday Tobacco user Tobacco use type: Cigarette Years Smoked: (onset 13yo, 1ppd x 54yrs, 50pyh) e-Cigarette/Vaping Use: Never Used Second Hand Smoke Exposure: Yes Are you DNR?: No Advance Directives: No Advance Directives Information Provided: Yes How much weight loss: 24-33 pounds Nutrition Risks: No Nutritional Risk service: No Current occupational status: disabled 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) Hearing needs: No Vision needs: No Meds Allergies Allergy/AdvReac Type Severity Reaction Status Date / Time No Known Allergies Allergy Verified 10/11/22 13:28 [No Known Allergies*] Home Medications Medication Instructions Recorded Confirmed Last Taken Type prazosin 1 mg capsule 1 mg PO BEDTIME 01/13/21 08/27/22 Unknown History quetiapine 100 mg tablet 100 mg PO BEDTIME 01/13/21 08/27/22 Unknown History quetiapine 50 mg tablet 50 mg PO BEDTIME 01/13/21 08/27/22 Unknown History donepezil 5 mg tablet 5 mg PO DAILY 08/26/21 08/27/22 Unknown History Exam Exam Date and Time: October 19, 2022 1054 Pertinent Lab Results Pertinent Lab Results: Laboratory Tests 06/24/22 06/24/22 10:16 10:16 WBC 10.2 Hgb 10.4 L Hct 33.7 L Plt Count 405 H D Sodium 138 Potassium 4.2 Chloride 103 Carbon Dioxide 26 BUN 19 H Creatinine 0.96 Assessment and Plan Assessment Anesthesia Assessment: Chart Reviewed Final Anesthetic Review Family History of Problems with Anesthesia: No History of Problems with Anesthesia: No Documented by User: Radha Franco MD 10/20/22 11:03 HPI - Anesthesia Eval Consult details Narrative: 67yo M for Colonoscopy s/p EGD and [place] 08/2022 with TIVA (190mg propofol + lido) PMFSH Active Problems Active Problems: All Active Problems (Updated 10/20/22 @10:50 by Radha Franco MD) Gastritis (Acute) Severely underweight adult (Acute) Weight loss, abnormal (Acute) Nicotine dependence, cigarettes, uncomplicated (Acute) Alcoholic dementia (Acute) Mild cognitive impairment (Acute) Depression (Acute) Anxiety (Acute) Insomnia (Acute) Pure hypercholesterolemia (Acute) Abdominal pain (Acute) Exposed orthopaedic hardware (Acute) Right knee pain (Acute) Past Medical History Medical History Abdominal pain Anxiety Depression Gastritis History of hepatitis C Nicotine dependence, cigarettes, uncomplicated Pure hypercholesterolemia Tubular adenoma Family History Family History Father Medical history unknown Mother Diabetes Maternal Grandmother Lung cancer Maternal Uncle Colon cancer CVD (cardiovascular disease) Other Substance abuse Surgical History Surgical History History of cataract surgery History of colonoscopy History of shoulder surgery History of surgery on lower extremity Social History Social History Housing: Apartment Alcohol intake: former Patient Tobacco Use Status: Current everyday Tobacco user Tobacco use type: Cigarette Years Smoked: (onset 13yo, 1ppd x 54yrs, 50pyh) e-Cigarette/Vaping Use: Never Used Second Hand Smoke Exposure: Yes Are you DNR?: No Advance Directives: No Advance Directives Information Provided: Yes How much weight loss: 24-33 pounds Nutrition Risks: No Nutritional Risk service: No Current occupational status: disabled 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) Hearing needs: No Vision needs: No Meds Allergies Allergy/AdvReac Type Severity Reaction Status Date / Time No Known Allergies Allergy Verified 10/11/22 13:28 [No Known Allergies*] Home Medications Medication Instructions Recorded Confirmed Last Taken Type prazosin 1 mg capsule 1 mg PO BEDTIME 01/13/21 08/27/22 Unknown History quetiapine 100 mg tablet 100 mg PO BEDTIME 01/13/21 08/27/22 Unknown History quetiapine 50 mg tablet 50 mg PO BEDTIME 01/13/21 08/27/22 Unknown History donepezil 5 mg tablet 5 mg PO DAILY 08/26/21 08/27/22 Unknown History Exam Height,Weight and Vital Signs: Height 5 ft 9 in Weight 42.638 kg Vital Signs Temp Pulse Resp BP Pulse Ox O2 Del Method 10/20/22 10:30 97 F 95 20 106/68 96 Room Air 10/20/22 10:28 88 18 Airway Mallampati Class: II TM Dist: >3cm Neck ROM: Full Loose/Missing/Broken Teeth: Yes (Edentulous) Heart: RRR Lungs: CTAB. Diminished Assessment and Plan Assessment Anesthesia Assessment: Anesthesia Plan Discussed Final Anesthetic Review NPO: Yes ASA Class: III Final Preanesthetic Review: No Changes in Pt Med Stat, Meds/Allgs Chart Reviewed, Consent Obtained/Reviewed and Anes Risks/Benef Reviewed Patient Risk: Intermediate Procedure Risk: Low Assessment/Block/Sedation in SS: Assess/Block/Sedation-SS Anesthetic Plan Anesthetic Plan: MAC: Disposition: Standard PACU
[2022-10-20] VITALS (15 sets, daily range): BP systolic 58–106; BP diastolic 30–68; PULSE 64–95; RESP 12–27; TEMP 36.1–36.6; O2SAT 96–100; BMI 13.9
[2022-10-20] MEDS: Albuterol Sulfate (0.083%) 2.5 MG/3 ML VIAL.NEB INHALE (10:27)
--- NOTE | 2022-10-20 10:35 | PC.NURSE ---
PT VERY FRAIL LOOING STEADY GAIT TO BEDSIDE STS LOS GREATER THAN 20 POUNDS IN 1 MTH DENIES PAIN LS DIMISHED AFTER RESP TX
--- NOTE | 2022-10-20 10:42 | MHC.SHP ---
Pre-Procedural Eval Section A Date of Service: 10/20/22 Section B Chief Complaint: screening Relevant Family History (Specify if Yes): No Relevant Social History: Tobacco Use Present Medications: see Short Stay Collaborative assessment Medical History: Significant History (Abdominal pain Anxiety Depression Gastritis History of hepatitis C Nicotine dependence, cigarettes, uncomplicated Pure hypercholesterolemia Tubular adenoma) History of Previous Operations: Relevant previous surgery/procedure and date(s) (History of cataract surgery History of colonoscopy History of shoulder surgery History of surgery on lower extremity) Allergies: Allergies Allergy/AdvReac Type Severity Reaction Status Date / Time No Known Allergies Allergy Verified 10/11/22 13:28 [No Known Allergies*] Review of Systems Sugical H&P ROS: Negative: Constitution, Cardiovascular, Respiratory, Neurological, Psychiatric, Hem-Onc, Allergic/Immunologic, Gastrointestinal, Genitourinary, Musculoskeletal, Integumentary, Endocrine and Eyes/Ears/Nose/Throat Exam Surgical H&P Exam: Normal: HEENT, Normal: Heart, Normal: Lungs, Normal: Extremities, Normal: Abdomen, Normal: Skin and Normal: Neurological Exam Comment: thin, underweight Plan Diagnosis/Plan: Unchanged I have reviewed the history and physical and performed a pertinent physical examination on my patient. No changes have occurred unless specified. Time Spent With Patient Time: Total time managing care of this patient today ____ minutes.
[2022-10-20] MEDS: Lactated Ringers 1,000 ML 100 ML IVCONT (10:52)
--- NOTE | 2022-10-20 12:44 | W.PM.OPN ---
Operative Note Operative Note Date of Service: 10/20/22 Narrative: Operative Information Procedure Description: Colonoscopy Indication: screening Anesthesia: MAC COLONOSCOPY Instrument: Olympus variable stiffness pediatric scope 190L Colonoscopy Monitoring: Vital signs and clinical assessment, continuous EKG monitoring, Pulse oximetry, Carbon Dioxide monitoring and blood pressure monitoring were done throughout the procedure. Colon withdrawal time was 11 minutes. Procedure: The patient was placed in the left lateral decubitis position and pre-procedure medications were administered. After a digital rectal examination of the ano-rectum, the video colonoscope was inserted into the rectum and advanced through the colon to the cecum/TI. The colonoscope was slowly withdrawn in a retrograde panoramic fashion and the colon mucosa was carefully examined including a retroflexed view of the rectum. Findings and interventions are described below. Procedure Difficulty: difficult due to tortuous colon Findings: Terminal Ileum-normal Cecum:normal Ascending Colon: normal Transverse Colon -normal Descending Colon:normal Sigmoid Colon: normal Rectum: Retroflexion with small internal hemorrhoids, grade I Anorectum - normal Colon preparation: [place] Bowel Preparation Scale Right colon; 2 Transverse colon: 2 Left colon; 2 (0 = Unprepared colon segment with mucosa not seen due to solid stool that cannot be cleared. 1 = Portion of mucosa of the colon segment seen, but other areas of the colon segment not well seen due to staining, residual stool and/or opaque liquid. 2 = Minor amount of residual staining, small fragments of stool and/or opaque liquid, but mucosa of colon segment seen well. 3 = Entire mucosa of colon segment seen well with no residual staining, small fragments of stool or opaque liquid) Impression and Post Procedure Diagnosis: tortuous colon internal hemorrhoids, small Plan: High fiber diet leaflet Avoid straining at stool, epsom salts and sitz bath, anusol supps or cream Repeat Colonoscopy in 10 years or earlier if clinically indicated Above findings were reviewed with the patient and relevant handouts were provided if indicated.
== END 2022-10-20 15:36 | disposition home or self-care (01) ==
PROVIDERS: PCP Internal Medicine; Visit Provider Internal Medicine Gastroenterology
PROC: 0DJD8ZZ Inspection of Lower Intestinal Tract, Via Natural or Artificial Opening Endoscopic (ICD-10-PCS; CPT 45378; principal; 2022-10-20 14:40)
DX: Z12.11 Encounter for screening for malignant neoplasm of colon (principal); Z86.010 Personal history of colon polyps; K64.0 First degree hemorrhoids; K59.00 Constipation, unspecified; Q43.8 Other specified congenital malformations of intestine; K29.70 Gastritis, unspecified, without bleeding; R63.6 Underweight; Z68.1 Body mass index [BMI] 19.9 or less, adult; K44.9 Diaphragmatic hernia without obstruction or gangrene; K21.00 Gastro-esophageal reflux disease with esophagitis, without bleeding; Z79.899 Other long term (current) drug therapy; Z86.19 Personal history of other infectious and parasitic diseases
CPT/HCPCS: G0105; 94640; J2371; J3010

== ENCOUNTER → 2022-10-20 10:00 | Outpatient (BNV) | payer OTHER, SELFPAY | PROVIDERS: PCP Internal Medicine; Visit Provider Internal Medicine Gastroenterology | DX: Z12.11 Encounter for screening for malignant neoplasm of colon (principal); K64.0 First degree hemorrhoids | CPT/HCPCS: G0121 ==

== ENCOUNTER 2022-11-01 13:35 | Outpatient (AMB) | payer OTHER, SELFPAY ==
[2022-11-01 13:41] VITALS: BP 93/54; PULSE 60; BMI 13.7
--- NOTE | 2022-11-01 13:41 | MHC.OFFVIS ---
Intake Vital Signs 11/01/22 13:41 Height 5 ft 8 in Weight 90 lb BMI 13.7 BP 93/54 L Blood Pressure Location Lt brachial Position Sitting Pulse 60 Intake Visit Reasons: s/p colon Andino Intake Note: Michael presents in office as a est.patient for a post-op for a colonoscopy screening. pt got colo done 10.20.22 PT CC: pt reports no concerns pt denies any other GI Issues Accompanied by: HEAD ORTHOPEDIC TEAM PHYSICIAN Allergies No Known Allergies [No Known Allergies*] Allergy (Verified 11/01/22 13:45) HPI s/p colon Andino HPI Details LAST VISIT Severely underweight adult Patient continues to lose weight. Patient does not much appetite. Patient's family is present. Patient's nephew takes care of him and he states that he drinks 10 cups of coffee a day and smokes cigarettes each time he drinks coffee. Patient was encouraged to stop drinking coffee or at least decrease the amount to 1 or 2 cups a day. Protein shakes encouraged instead. Abdominal pain Epigastric discomfort. Patient was diagnosed with gastritis and esophagitis. Continue PPI treatment as well as sucralfate at bedtime. Gastritis PPI and sucralfate. Avoid dietary triggers Screen for colon cancer Patient had suboptimal prep and had not gone for colonoscopy. Patient will do 1 day clears and will do Dulcolax 1 week before the procedure. Patient yearly underweight and clear liquids 2 days before procedure recommended GERD (gastroesophageal reflux disease) As mentioned above patient will continue to take PPI. For now will try it once a day with sucralfate at bedtime. Avoid dietary triggers like coffee. Eat small amounts and more often. Patient was also encouraged to stop smoking. Esophagitis Esophagitis found on upper endoscopy. Will repeat upper endoscopy on as needed basis. Patient encouraged avoiding culprit, stop smoking. Avoid eating late at night I will see patient after the procedure, sooner on as needed basis. Patient is agreeable to this plan and verbalizes understanding of instructions. He was given the opportunity to ask questions and all questions answered. ? Thank you for allowing me to participate in care Plan Medications New bisacodyl (Dulcolax (bisacodyl)) Start taking 2 tablet every night 7 days before the procedure and 1 day before procedure take 2 tablets at noon time followed by MiraLax prep 10 mg (2 x 5 mg) PO BEDTIME 14 tabs 0RF Z12.11 sucralfate 10 mL PO BEDTIME 400 mL 3RF K21.9 Refilled polyethylene glycol 3350 (Miralax) As directed by gastroenterology department at [facility] 238 grams PO ONCE 238 grams 0RF Z12.11 Discontinued bisacodyl (Dulcolax (bisacodyl)) take 2 tabs at noon the day before your colonoscopy Discontinued Reason: Doctor's Order 10 mg (2 x 5 mg) PO ONCE 1 day 2 tabs 0RF Z12.11 COLONOSCOPY: Findings: Terminal Ileum-normal Cecum:normal Ascending Colon: normal Transverse Colon -normal Descending Colon:normal Sigmoid Colon:? normal Rectum: Retroflexion with small internal hemorrhoids, grade I Anorectum - normal Colon preparation: [facility] Bowel Preparation Scale Right colon; 2 Transverse colon: 2 Left colon; 2 (0 = Unprepared colon segment with mucosa not seen due to solid stool that cannot be cleared. 1 = Portion of mucosa of the colon segment seen, but other areas of the colon segment not well seen due to staining, residual stool and/or opaque liquid. 2 = Minor amount of residual staining, small fragments of stool and/or opaque liquid, but mucosa of colon segment seen well. 3 = Entire mucosa of colon segment seen well with no residual staining, small fragments of stool or opaque liquid) Impression and Post Procedure Diagnosis: tortuous colon internal hemorrhoids, small Plan: High fiber diet leaflet Avoid straining at stool, epsom salts and sitz bath, anusol supps or cream Repeat Colonoscopy in 10 years or earlier if clinically indicated TODAY'S VISIT Patient is here today for follow-up and to discuss colonoscopy results. Patient had no polyps and colonoscopy recommended to be repeated in 10 years, sooner if clinically necessary. Patient denies melena, hematochezia. Patient continues to lose weight. Patient does not have much appetite. Awaiting to go to CT scan, approval just came through last Tuesday. Will try to schedule patient for procedure this week. Patient is leaving to go to [place] next week for a month with his family. Patient reports that he drinks several cups of coffee every day. He also smokes cigarettes. Patient denies dyspepsia, dysphagia or odynophagia. Reports occasional epigastric discomfort and acid reflux. Patient denies any nausea or vomiting. [facility] Medical History Abdominal pain Anxiety Depression Gastritis History of hepatitis C Nicotine dependence, cigarettes, uncomplicated Pure hypercholesterolemia Tubular adenoma Surgical History History of cataract surgery History of colonoscopy History of shoulder surgery History of surgery on lower extremity Family History Father Medical history unknown Mother Diabetes Maternal Grandmother Lung cancer Maternal Uncle Colon cancer CVD (cardiovascular disease) Other Substance abuse Social History Housing: Apartment Alcohol intake: former Patient Tobacco Use Status: Current everyday Tobacco user Tobacco use type: Cigarette Years Smoked: (onset 13yo, 1ppd x 54yrs, 50pyh) e-Cigarette/Vaping Use: Never Used Second Hand Smoke Exposure: Yes service: No Current occupational status: disabled 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) Hearing needs: No Vision needs: No Review of Systems Const Denies weight gain and Denies weight loss ENT Reports no additional complaints, Denies dysphagia and Denies odynophagia Card Reports no additional complaints Resp Reports no additional complaints GI Denies abdominal pain, Denies belching, Denies melena, Denies bloating, Denies change in bowel habits, Denies dysphagia, Denies excessive flatus, Denies dyspepsia, Reports heartburn (Occasional), Denies diarrhea, Denies loose stools, Denies nausea, Denies odynophagia and Denies vomiting Reports no additional complaints Musc Reports no additional complaints Neuro Reports no additional complaints Psych Reports no additional complaints Endo Reports no additional complaints Physical Exam Vital Signs: Last Vital Signs Pulse 60 11/01/22 13:41 BP 93/54 L 11/01/22 13:41 BMI result Body Mass Index 13.7 Const General: cooperative, comfortable, no acute distress and well groomed Nutritional Appearance: malnourished Orientation/consciousness: patient oriented x3 HEENT Head: Yes normal to inspection, Yes normocephalic and Yes atraumatic Face and sinus: Yes normal facial exam Mouth: Normal oral and palatal mucosa present Throat: Yes posterior oropharynx normal, Yes tonsils normal and Yes uvula midline Eyes General: appearance normal, both eyes and all related structures Neck Neck: Yes normal visual inspection, Yes full ROM and Yes trachea midline Thyroid: Thyroid normal Resp Effort & Inspection: normal respiratory effort, able to speak in complete sentences, no tracheal deviation and symmetric chest movement Auscultation: clear to auscultation bilaterally Cardio Rate: regular rate Heart sounds: S1 normal heart sound present and S2 normal heart sound present GI Inspection: Yes normal to inspection and No distended Palpation (GI): Soft to palpation, not firm, nontender and No hepatosplenomegaly present Auscultation: normal bowel sounds General: Yes no CVA tenderness Back/Spine/Pelvis Back: no CVA tenderness Skin General skin exam: elasticity normal, turgor normal and dry skin Neuro General: patient oriented x3 Psych Appearance: grossly normal Mental Status: mental status grossly normal Speech and movement: Normal speech and movement present Assessment & Plan Assessment & Plan (1) Gastritis: Code(s): K29.70 - Gastritis, unspecified, without bleeding Qualifiers: Gastritis type: other gastritis Chronicity: chronic Gastritis bleeding: without bleeding Qualified Code(s): K29.50 - Unspecified chronic gastritis without bleeding Plan: Continue pantoprazole and sucralfate. Patient will continue avoiding dietary triggers. Patient does not eat that much. Encourage patient to eat more often. Stop drinking coffee or replace it with smaller amount and less often. (2) Severely underweight adult: Code(s): R63.6 - Underweight Plan: Patient is going for CT scan this week. Appointment scheduled for this at 13:30. Patient will go and get blood work done today. Patient denies any nausea or vomiting. Patient will try protein powder in his coffee and dry to drink less coffee and less often. (3) GERD (gastroesophageal reflux disease): Code(s): K21.9 - Gastro-esophageal reflux disease without esophagitis Qualifiers: Esophagitis presence: with esophagitis Esophagitis bleeding: without hemorrhage Qualified Code(s): K21.00 - Gastro-esophageal reflux disease with esophagitis, without bleeding Plan: Continue PPI therapy and sucralfate. Avoid dietary triggers only dissecting. Staying upright for minimal 3 hours after meals discussed with the patient avoid drinking coffee. Patient will be seen in 6 weeks, sooner on as needed basis. Patient is agreeable to this plan and verbalizes understanding of instructions. He was given the opportunity to ask questions and all questions answered. Thank you for allowing me to participate in his care Orders: Orders Blood Urea Nitrogen Today R10.11 - Right upper quadrant pain Creatinine Today R10.11 - Right upper quadrant pain Medications: Refilled pantoprazole take one tablet half an hour before breakfast 40 mg PO DAILY 90 tabs 2RF K21.9 - Gastro-esophageal reflux disease without esophagitis Coding Level of Care Code Est Pt Level 3 (09493) Diagnoses Gastritis K29.50 Gastritis type: other gastritis Chronicity: chronic Gastritis bleeding: without bleeding Severely underweight adult R63.6 GERD (gastroesophageal reflux disease) K21.00 Esophagitis presence: with esophagitis Esophagitis bleeding: without hemorrhage Time Spent (min) 30 Comment 20 minutes spent with patient and additional 10 minutes spent reviewing his records
== END 2022-11-01 14:31 | disposition home or self-care (01) ==
PROVIDERS: PCP Internal Medicine; Visit Provider Nurse Practitioner Family
DX: K29.50 Unspecified chronic gastritis without bleeding (principal); R63.6 Underweight; K21.00 Gastro-esophageal reflux disease with esophagitis, without bleeding
CPT/HCPCS: 99213

== ENCOUNTER 2022-11-01 13:35 | Outpatient (REF) | payer OTHER, SELFPAY ==
[2022-11-01 15:58] LABS: Blood Urea Nitrogen 17 mg/dL (9-16); Estimated Glomerular Filt Rate > 60
== END 2022-11-01 13:36 | disposition home or self-care (01) ==
LOC: HO.LAB 13:35
PROVIDERS: PCP Internal Medicine; Visit Provider Nurse Practitioner Family
DX: R10.11 Right upper quadrant pain (principal)
CPT/HCPCS: 36415; 82565; 84520; 99212

== ENCOUNTER 2022-11-04 13:15 | Outpatient (REF) | payer OTHER, SELFPAY ==
--- NOTE | ~2022-11-04 | CT_ITS ---
EXAMINATION: CT ABDOMEN AND PELVIS WITH CONTRAST CLINICAL INFORMATION: Unspecified abdominal pain. COMPARISON: Abdominal ultrasound 08/20/2022 CT abdomen 10/13/2016 TECHNIQUE: Multidetector volumetric images were obtained from the superior aspect of the liver through the pubic symphysis following administration 85 mL of Omnipaque 350 intravenous contrast. Sagittal and coronal reformatted images were obtained on the technologist's workstation. Oral contrast: No This CT examination was performed using dose optimization techniques as appropriate, variously including the following: *Automated exposure control *Adjustment of mA and/or kV according to patient size (this includes techniques or standardized protocols for targeted exams where dose is matched to indication/reason for exam; i.e. extremities or head) *Use of iterative reconstruction technique DLP: 202 mGy-cm FINDINGS: Motion artifact technically degrades image quality. LUNG BASES: The visualized lung bases are unremarkable. LIVER, GALLBLADDER, AND BILIARY TREE: The liver is decreased in attenuation. No focal hepatic lesion or biliary ductal dilatation is present. The gallbladder is unremarkable with no evidence of radiopaque gallstones, gallbladder wall thickening, or obvious pericholecystic inflammatory changes. PANCREAS: Coarse pancreatic parenchymal calcifications. Atrophic pancreas with tortuous and dilated main pancreatic duct. No peripancreatic stranding. SPLEEN: Not enlarged. ADRENAL GLANDS: No adrenal mass. KIDNEYS AND URETERS: The kidneys are symmetric in size and enhancement. Bilateral simple renal cysts. No further imaging follow-up is needed. No hydronephrosis or perinephric stranding. BLADDER: Decompressed. GASTROINTESTINAL TRACT: Overall paucity of intra-abdominal fat as well as the lack of administered enteric contrast limits evaluation the bowel. No small bowel obstruction. ABDOMINAL WALL: No significant hernia is appreciated. LYMPH NODES: No bulky abdominal or pelvic lymphadenopathy VASCULAR: Normal caliber abdominal aorta. PELVIC VISCERA: Unremarkable. OSSEOUS STRUCTURES: No destructive bone lesion. CT/CT abdomen pelvis w IV con IMPRESSION: Chronic pancreatitis. Progressive atrophy of the pancreas with probable tortuosity and dilatation of the main pancreatic duct. Increased parenchymal calcifications.
[2022-11-04] MEDS: iohexoL 350 MG/ML 100 ML INFUS..BTL 85 ML IV (14:13)
== END 2022-11-04 13:16 | disposition home or self-care (01) ==
LOC: HO.CT 13:15
PROVIDERS: PCP Internal Medicine; Visit Provider Nurse Practitioner Family
DX: K29.50 Unspecified chronic gastritis without bleeding (principal); R10.9 Unspecified abdominal pain; R63.6 Underweight
CPT/HCPCS: 74177; Q9967

== ENCOUNTER 2022-12-07 11:09 | Outpatient (REF) | payer OTHER, SELFPAY | END 2022-12-07 11:10 | disposition home or self-care (01) | LOC: HO.CT 11:09 | PROVIDERS: PCP Internal Medicine; Visit Provider Physician Assistant Medical | DX: J94.8 Other specified pleural conditions (principal); R91.1 Solitary pulmonary nodule; F17.210 Nicotine dependence, cigarettes, uncomplicated | CPT/HCPCS: 71250 ==

== ENCOUNTER 2022-12-13 14:52 | Outpatient (AMB) | payer OTHER, SELFPAY ==
[2022-12-13 15:03] VITALS: BP 96/64; PULSE 84; O2SAT 98; BMI 13.8
--- NOTE | 2022-12-13 15:03 | A.OFFPC_ITS ---
Vital Signs 12/13/22 15:03 Height 5 ft 8 in Weight 91 lb BMI 13.8 BP 96/64 Blood Pressure Location Lt brachial Position Sitting Pulse 84 Pulse Source Pulse Oximeter Pulse Oximetry (%) 98 Oxygen Delivery Method Room Air Intake Visit Reasons: Discuss Medication / Weight Loss Grill Cook Required: No Accompanied by: Self / Same As Patient Allergies No Known Allergies [No Known Allergies*] Allergy (Verified 11/24/23 12:17) Medication List - Last Reconciled 11/24/23 by Deion Shafer MD [ADULT PULL UPS (small) As directed] albuterol sulfate 90 mcg/actuation (Ventolin HFA) 2 puffs inhalation Q4-6H PRN [BED RAIL As directed] [DISPOSABLE GLOVES (medium) As directed] donepezil 5 mg PO DAILY food supplemt, lactose-reduced (Ensure oral liquid) 1 ea PO .TID with meals pantoprazole 40 mg PO DAILY prazosin 1 mg PO BEDTIME quetiapine 50 mg PO BEDTIME [SHOWER CHAIR As directed] sucralfate 10 mL PO BEDTIME umeclidinium-vilanterol 62.5-25 mcg/actuation (Anoro Ellipta) 1 inh inhalation DAILY 30 days Tobacco use date assessed: 12/13/22 Fall risk assessment: 1 Fall in past year Last assessed Fall Risk: 12/13/22 Dental Screening Dental Screen Date: 12/13/22 Did you have a dental visit in the last 12 months?: No Did you have a dental problem in the last 6 months where you did not have access to dental care?: No Was dental information given to patient?: No HPI Discuss Medication / Weight Loss HPI Details Patient comes in today for his follow up visit - is accompanied as usual by his [id number] today, who provides most of his information as patient is unable to reliably provide them due to his dementia Patient still lives at home with family and his [id number]-[id number] states that someone is with him all the time (27/09) to help keep watch him His family states that keyla has been complaining of increasing bilateral knee and leg pain for a while now There has been no recent injury or trauma to his legs and knees as far as they are aware of that may have contributed to his leg and knees pains They are also concerned about patient's weight and is wondering if he can be given Rx for Ensure for nutritional supplementation Patient states that he feels okay otherwise He denies any headaches or dizziness Denies any chest pains, no increased SOB No nausea/vomiting, no abdominal pain No change in bowel habits noted [facility] Medical History (Updated 11/24/23 @ 12:19 by Deion Shafer MD) Osteoarthritis of both knees Gastritis Tubular adenoma Nicotine dependence, cigarettes, uncomplicated Abdominal pain Depression Anxiety History of hepatitis C Pure hypercholesterolemia Surgical History History of surgery on lower extremity History of shoulder surgery History of colonoscopy History of esophagogastroduodenoscopy (EGD) History of cataract surgery Family History Father Medical history unknown Mother Diabetes Maternal Grandmother Lung cancer Maternal Uncle Colon cancer CVD (cardiovascular disease) Other Substance abuse Social History Housing: Apartment Alcohol intake: former Patient Tobacco Use Status: Current everyday Tobacco user Tobacco use type: Cigarette Cigarettes Per Day: 12 Years Smoked: (onset 13yo, 1ppd x 54yrs, 50pyh) e-Cigarette/Vaping Use: Never Used Second Hand Smoke Exposure: Yes service: No Current occupational status: disabled 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) Hearing needs: No Vision needs: No Questionnaire PHQ-9 Over the last 2 weeks, how often have you been bothered by any of the following problems? 1. Little interest or pleasure in doing things: not at all 2. Feeling down, depressed, or hopeless: several days 3. Trouble falling or staying asleep, or sleeping too much: several days 4. Feeling tired or having little energy: not at all 5. Poor appetite or overeating: not at all 6. Feeling bad about yourself - or that you are a failure or have let yourself or your family down: not at all 7. Trouble concentrating on things, such as reading the newspaper or watching television: not at all 8. Moving or speaking so slowly that other people could have noticed. Or the opposite - being so fidgety or restless that you have been moving around a lot more than usual: not at all 9. Thoughts that you would be better off or of hurting yourself in some way: not at all Total score: 2 Depression Screening Interpretation: Negative Depression Screening Done: Yes 72283 - PHQ-9 Billing: Yes Source: Developed by Drs. Rex Sy, Barb Tucker, Dominic Gamino and colleagues, with an educational rojelio from [employer]. Thrive Questionnaire Date Thrive assessed: 12/13/22 I am a: Patient What is your living situation today?: I have a steady place to live Within the past 12 months, did the food you bought not last and you didn't have the money to get more?: Never true Within the past 12 months, did you worry whether your food would run out before you got money to buy more?: Never true Do you have trouble paying for medicines?: No Do you have trouble getting transportation to medical appointments?: No Do you have trouble paying your heating and electricity bill?: No Do you have trouble taking care of your child, family member or friend?: No Do you have trouble with day-to-day activities such as bathing, preparing meals, shopping, managing finances, etc.?: No Are you currently unemployed and looking for a job?: No Are you interested in more education?: No Please select the resources that you would like help with: None Currently or been in a relationship where the following occur: no concerns reported AUDIT C Alcohol Use Questionnaire (AUDIT-C) 1. How often do you have a drink containing alcohol?: Never 2. How many drinks containing alcohol do you have on a typical day when you are drinking?: 1 or 2 3. How often do you have six or more drinks on one occasion?: Never Total Score: 0 Score Reviewed/Action Taken: Yes SCOTT-7 AMB Questionnaire SCOTT-7 Date SCOTT - 7 assessed: 12/13/22 Feeling nervous, anxious, or on edge: 0 = Not at all Not being able to stop or control worryin = Not at all Worrying too much about different things: 0 = Not at all Trouble relaxin = Not at all Being so restless that it is hard to sit still: 0 = Not at all Becoming easily annoyed or irritable: 0 = Not at all Feeling afraid as if something awful might happen: 0 = Not at all Total SCOTT-7 score (0-4 normal; 5-9 mild; 10-14 moderate; 15-21 severe): 0 Source: Developed by Drs. Rex Sy, Barb Tucker, Dominic Gamino and colleagues, with an educational rojelio from [employer]. Review of Systems Const Unobtainable due to mental status (ROS obtained primarily from patient's [id number] - patient is confused) Denies chills, Denies difficulty sleeping, Denies fever(s), Denies headache(s) and Denies poor appetite ENT Denies dysphagia, Denies dizziness, Denies headache(s), Denies neck pain, Denies odynophagia and Denies sore throat Card Denies chest pain, Denies palpitations and Denies dyspnea Resp Denies cough and Denies dyspnea GI Details: per [id number]-[id number], he used to not eat much throughout the day and just drinks coffee and watches television but he has gotten better at this lately and is now eating whenever they give him something Denies abdominal pain, Denies constipation, Denies dysphagia, Reports fecal incontinence (wears adult diapers), Denies diarrhea, Denies nausea, Denies odynophagia and Denies vomiting Denies dysuria and Reports urinary incontinence Musc Denies back pain, Reports arthralgias (both knees and both lower leg) and Denies neck pain Skin/Breast Denies rash Neuro Denies behavioral changes, Reports confusion, Denies dizziness and Denies headache(s) Psych Denies behavioral changes and Reports confusion Endo Denies palpitations Physical exam (Primary Care) Vital Signs: Last Vital Signs Pulse 84 12/13/22 15:03 BP 96/64 12/13/22 15:03 Pulse Ox 98 12/13/22 15:03 Oxygen Delivery Method Room Air 12/13/22 15:03 BMI result Body Mass Index 13.8 Tobacco/Smoking Status: Tobacco use Status Tobacco use date assessed 12/13/22 12/13/22 15:04 Patient Tobacco Use Status Current everyday Tobacco 12/13/22 15:04 Tobacco use type Cigarette 12/13/22 15:04 e-Cigarette/Vaping Use Never Used 12/13/22 15:04 PHQ-9: PHQ-9 Score PHQ-9: Total score 2 12/13/22 15:41 Depression Screening Interpretation: Negative Thrive Assessment: Date of Thrive Assessment Date Thrive assessed 12/13/22 12/13/22 15:04 Currently or been in a relationship where the following occur: no concerns reported Const General: confusion Orientation/consciousness: confusion HENMT Ears: TM's normal bilaterally and EAC's normal Throat: Yes posterior oropharynx normal and Yes tonsils normal (no TP congestion noted) Neck Neck: Yes no lymphadenopathy and Yes supple Thyroid: Thyroid normal Resp Auscultation: clear to auscultation bilaterally, no rales and no wheezes Cardio Rate: regular rate Rhythm: regular rhythm Heart sounds: no murmurs GI Palpation (GI): Soft to palpation, nontender and no guarding Auscultation: normal bowel sounds General: Yes no CVA tenderness Back/Spine/Pelvis Back: no CVA tenderness Thoracic/Lumbar Spine: No lumbar spinal tenderness Skin Rashes: no rashes Neuro General: confusion Extrem Other: (+) multiple screws are prominently visible over the anteromedial aspect of the right knee; (+) minimal tenderness noted on exam; no swelling of the knee joint noted General: Yes no clubbing, cyanosis or edema Right lower extremity: knee Details: tenderness (mild); no swelling and lower leg Details: tenderness Left lower extremity: knee Details: tenderness; no swelling and lower leg Details: tenderness Assessment and Plan Assessment & Plan (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 Qualifiers: Dementia behavioral disturbance: without behavioral disturbance Qualified Code(s): F10.27 - Alcohol dependence with alcohol-induced persisting dementia Plan: Head CT done in March 2021 came out grossly normal Patient used to drink alcohol heavily for years when he was younger but has reportedly quit a few years ago, per family He was seen by neurology last year and was diagnosed with dementia and MCI and started on Donepezil - continue Donepezil 5 mg QD Follow up with neurology as scheduled (2) Mild cognitive impairment: Comment: (+) some memory loss Code(s): G31.84 - Mild cognitive impairment of uncertain or unknown etiology Plan: Continue Donepezil 5 mg QD Follow up with neurology as scheduled (3) Gastritis: Code(s): K29.70 - Gastritis, unspecified, without bleeding Qualifiers: Gastritis type: other gastritis Chronicity: chronic Gastritis bleeding: without bleeding Qualified Code(s): K29.50 - Unspecified chronic gastritis without bleeding Plan: Reinforced dietary restrictions Continue Carafate 10 ml Q HS and Pantoprazole 40 mg QD Follow up with GI as scheduled (4) Pure hypercholesterolemia: Code(s): E78.00 - Pure hypercholesterolemia, unspecified Plan: He has not had any follow up labs done in a while now - will send him for some labs TREVON for follow up Reinforced low cholesterol diet (5) Anemia: Code(s): D64.9 - Anemia, unspecified Qualifiers: Anemia type: unspecified type Qualified Code(s): D64.9 - Anemia, unspecified Plan: Will recheck his CBC TREVON and will continue to monitor his CBC regularly (6) COPD (chronic obstructive pulmonary disease): Code(s): J44.9 - Chronic obstructive pulmonary disease, unspecified Qualifiers: COPD type: emphysema Emphysema type: other Qualified Code(s): J43.8 - Other emphysema Plan: Patient had biapical opacities initially seen on routine lung cancer screening CT PET scan done a few months ago revealed minimal to no tracer avidity involving the lung apices bilaterally; (+) persistent moderate to severe paraseptal emphysematous disease at both upper lobes - no findings concerning for malignancy Continue Anoro Ellipta 62.5-25 mcg 1 inhalation QD and Albuterol HFA 2 inhalations Q 6 hours PRN Follow up with pulmonary as scheduled (7) Knee pain, bilateral: Code(s): M25.561 - Pain in right knee; M25.562 - Pain in left knee Qualifiers: Chronicity: unspecified Qualified Code(s): M25.561 - Pain in right knee; M25.562 - Pain in left knee Plan: Will send patient for x-rays of both knees for further evaluation (8) Leg pain, bilateral: Code(s): M79.604 - Pain in right leg; M79.605 - Pain in left leg Plan: Will send him for bilateral lower leg x-rays for further evaluation (9) History of hepatitis C: Comment: (s/p Tx with [facility]) Code(s): Z86.19 - Personal history of other infectious and parasitic diseases Plan: Hepatitis C viral load last checked a couple of years ago came out negligible Repeat hepatitis C viral load last year came back negligible Follow up with GI as scheduled (10) Anxiety: Code(s): F41.9 - Anxiety disorder, unspecified Plan: Continue Prazosin 1 mg QHS (11) Depression: Code(s): F32.A - Depression, unspecified Qualifiers: Depression Type: major depressive disorder Major depression recurrence: recurrent Active/Remission status: currently active Major depression episode severity: unspecified Qualified Code(s): F33.9 - Major depressive disorder, recurrent, unspecified Plan: Continue Quetiapine 50 mg Q HS - dose was reportedly recently lowered by psychiatry Follow up with psychiatry as scheduled (12) Smoker: Code(s): F17.200 - Nicotine dependence, unspecified, uncomplicated Plan: He has tried and appears to have failed nicotine patches and they have not even helped patient cut back on his smoking Counseling on smoking cessation is impractical due to patient's altered mental status (13) Severely underweight adult: Code(s): R63.6 - Underweight Plan: Will start patient on Ensure nutritional supplements Plan Follow up in 3 months Orders: Orders Comprehensive Met. Panel 12/17/22 R63.6 - Underweight, F03.90 - Unspecified dementia, unspecified severity, without behavioral disturbance, psychotic disturbance, mood disturbance, and anxiety Complete Blood Count Auto Diff 12/17/22 I10 - Essential (primary) hypertension, R63.6 - Underweight, F03.90 - Unspecified dementia, unspecified severity, without behavioral disturbance, psychotic disturbance, mood disturbance, and anxiety Vitamin D 25-OH Total 12/17/22 E55.9 - Vitamin D deficiency, unspecified, R63.6 - Underweight, F03.90 - Unspecified dementia, unspecified severity, without behavioral disturbance, psychotic disturbance, mood disturbance, and anxiety XR tibia fibula LT 2V 12/17/22 M79.604 - Pain in right leg, M79.605 - Pain in left leg, R22.43 - Localized swelling, mass and lump, lower limb, bilateral XR knee LT 4V 12/17/22 M25.561 - Pain in right knee, M25.562 - Pain in left knee XR knee RT 4V 12/17/22 M25.561 - Pain in right knee, M25.562 - Pain in left knee XR chest 2V 12/17/22 J98.8 - Other specified respiratory disorders, F17.200 - Nicotine dependence, unspecified, uncomplicated TSH reflex Free T4 12/17/22 E78.00 - Pure hypercholesterolemia, unspecified, R63.6 - Underweight, F03.90 - Unspecified dementia, unspecified severity, without behavioral disturbance, psychotic disturbance, mood disturbance, and anxiety UA CC w/rflx Micro + Cult 12/17/22 R30.0 - Dysuria, R63.6 - Underweight, F03.90 - Unspecified dementia, unspecified severity, without behavioral disturbance, p sychotic disturbance, mood disturbance, and anxiety Vitamin B12 and Folate 12/17/22 E53.8 - Deficiency of other specified B group vitamins, R63.6 - Underweight, F03.90 - Unspecified dementia, unspecified severity, without behavioral disturbance, psychotic disturbance, mood disturbance, and anxiety XR tibia fibula RT 2V 12/17/22 M79.604 - Pain in right leg, M79.605 - Pain in left leg, R22.43 - Localized swelling, mass and lump, lower limb, bilateral Medications: New food supplemt, lactose-reduced (Ensure oral liquid) 1 ea PO .TID with meals 90 multiple units 11RF R63.6 - Underweight, F03.90 - Unspecified dementia, unspecified severity, without behavioral disturbance, psychotic disturbance, mood disturbance, and anxiety, R62.7 - Adult failure to thrive Coding Level of Care Code Est Pt Level 4 (95656) Diagnoses 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 Dementia behavioral disturbance: without behavioral disturbance Mild cognitive impairment G31.84 Other chronic gastritis without hemorrhage K29.50 Gastritis type: other gastritis Chronicity: chronic Gastritis bleeding: without bleeding Pure hypercholesterolemia E78.00 Anemia, unspecified type D64.9 Anemia type: unspecified type Other emphysema J43.8 COPD type: emphysema Emphysema type: other Pain in both knees, unspecified chronicity M25.561; M25.562 Chronicity: unspecified Leg pain, bilateral M79.604; M79.605 History of hepatitis C Z86.19 Anxiety F41.9 Episode of recurrent major depressive disorder, unspecified depression episode severity F33.9 Depression Type: major depressive disorder Major depression recurrence: recurrent Active/Remission status: currently active Major depression episode severity: unspecified Smoker F17.200 Severely underweight adult R63.6
== END 2022-12-13 15:44 | disposition home or self-care (01) ==
PROVIDERS: PCP Internal Medicine; Visit Provider Internal Medicine
DX: F10.27 Alcohol dependence with alcohol-induced persisting dementia (principal); G31.84 Mild cognitive impairment of uncertain or unknown etiology; K29.50 Unspecified chronic gastritis without bleeding; E78.00 Pure hypercholesterolemia, unspecified; D64.9 Anemia, unspecified; M25.561 Pain in right knee; M25.562 Pain in left knee; M79.604 Pain in right leg; M79.605 Pain in left leg; Z86.19 Personal history of other infectious and parasitic diseases; F41.9 Anxiety disorder, unspecified
CPT/HCPCS: 99499

== ENCOUNTER 2022-12-17 12:01 | Outpatient (REF) | payer OTHER, SELFPAY ==
--- NOTE | ~2022-12-17 | XR_ITS ---
EXAMINATION: XR BILATERAL KNEES, BILATERAL TIBIA/FIBULA CLINICAL INFORMATION: Bilateral knee pain COMPARISON: Right knee 12/28/2021 TECHNIQUE: Four views each of the bilateral knees. 2 views of the bilateral tibia and fibula. Please note that the distal aspects of the bilateral tibia and fibula were incompletely imaged, and dedicated views should be obtained for adequate visualization is indicated. FINDINGS: RIGHT KNEE/TIBIA/FIBULA: Redemonstration of orthopedic fixation plate with screws traversing the tibial plateau/proximal tibia. Hardware appears intact. Similar appearance of deformity along the lateral surface of the proximal tibia. Small joint effusion. Scattered soft tissue calcifications, likely vascular. Mild tricompartmental degenerative changes. LEFT KNEE/TIBIA/FIBULA: Mild degenerative changes with tiny osteophytes and mild joint space narrowing. Small anterior inferior anterior patellar spurs. Extensive deformities at the proximal third of the tibia and fibula are characteristic of prior trauma XR/XR tibia fibula RT 2V IMPRESSION: 1. Postsurgical changes right knee and lower leg. Hardware appears intact. 2. Deformity in the bilateral lower legs as detailed above characteristic of prior trauma. Correlation with clinical exam and history recommended to determine further management. Additional imaging with CT scan or MRI should be considered for better visualization as these modalities are much more sensitive for detection of fracture or other underlying pathology.
--- NOTE | ~2022-12-17 | XR_ITS ---
EXAMINATION: XR BILATERAL KNEES, BILATERAL TIBIA/FIBULA CLINICAL INFORMATION: Bilateral knee pain COMPARISON: Right knee 12/28/2021 TECHNIQUE: Four views each of the bilateral knees. 2 views of the bilateral tibia and fibula. Please note that the distal aspects of the bilateral tibia and fibula were incompletely imaged, and dedicated views should be obtained for adequate visualization is indicated. FINDINGS: RIGHT KNEE/TIBIA/FIBULA: Redemonstration of orthopedic fixation plate with screws traversing the tibial plateau/proximal tibia. Hardware appears intact. Similar appearance of deformity along the lateral surface of the proximal tibia. Small joint effusion. Scattered soft tissue calcifications, likely vascular. Mild tricompartmental degenerative changes. LEFT KNEE/TIBIA/FIBULA: Mild degenerative changes with tiny osteophytes and mild joint space narrowing. Small anterior inferior anterior patellar spurs. Extensive deformities at the proximal third of the tibia and fibula are characteristic of prior trauma XR/XR knee LT 4V IMPRESSION: 1. Postsurgical changes right knee and lower leg. Hardware appears intact. 2. Deformity in the bilateral lower legs as detailed above characteristic of prior trauma. Correlation with clinical exam and history recommended to determine further management. Additional imaging with CT scan or MRI should be considered for better visualization as these modalities are much more sensitive for detection of fracture or other underlying pathology.
--- NOTE | ~2022-12-17 | XR_ITS ---
EXAMINATION: XR BILATERAL KNEES, BILATERAL TIBIA/FIBULA CLINICAL INFORMATION: Bilateral knee pain COMPARISON: Right knee 12/28/2021 TECHNIQUE: Four views each of the bilateral knees. 2 views of the bilateral tibia and fibula. Please note that the distal aspects of the bilateral tibia and fibula were incompletely imaged, and dedicated views should be obtained for adequate visualization is indicated. FINDINGS: RIGHT KNEE/TIBIA/FIBULA: Redemonstration of orthopedic fixation plate with screws traversing the tibial plateau/proximal tibia. Hardware appears intact. Similar appearance of deformity along the lateral surface of the proximal tibia. Small joint effusion. Scattered soft tissue calcifications, likely vascular. Mild tricompartmental degenerative changes. LEFT KNEE/TIBIA/FIBULA: Mild degenerative changes with tiny osteophytes and mild joint space narrowing. Small anterior inferior anterior patellar spurs. Extensive deformities at the proximal third of the tibia and fibula are characteristic of prior trauma XR/XR knee RT 4V IMPRESSION: 1. Postsurgical changes right knee and lower leg. Hardware appears intact. 2. Deformity in the bilateral lower legs as detailed above characteristic of prior trauma. Correlation with clinical exam and history recommended to determine further management. Additional imaging with CT scan or MRI should be considered for better visualization as these modalities are much more sensitive for detection of fracture or other underlying pathology.
--- NOTE | ~2022-12-17 | XR_ITS ---
EXAMINATION: XR CHEST CLINICAL INFORMATION: Other specified respiratory disorders COMPARISON: Chest 01/10/2019, lung cancer screening chest CT 12/07/2022 TECHNIQUE: 2 views of the chest were obtained. FINDINGS: The lungs are hyperinflated. No focal consolidation. No pneumothorax. Right apical fibronodular pleural parenchymal scarring with right upper lateral broad-based irregular thickening with 1.0 cm nodular component extending from the pleural surface of the right apex. Mild left apical pleural thickening. The cardiomediastinal silhouette is within normal limits. There are no pleural effusions. Surgical clips are seen in the right axilla. Stable mild anterior compression fracture in the upper thoracic spine. XR/XR chest 2V IMPRESSION: Biapical fibronodular pleural parenchymal scarring. 3 month follow-up LDCT has been recommended based on study of 12/07/2022. 1.0 cm nodular component extending from the pleural surface of the right apex. No acute cardiopulmonary disease.
--- NOTE | ~2022-12-17 | XR_ITS ---
EXAMINATION: XR BILATERAL KNEES, BILATERAL TIBIA/FIBULA CLINICAL INFORMATION: Bilateral knee pain COMPARISON: Right knee 12/28/2021 TECHNIQUE: Four views each of the bilateral knees. 2 views of the bilateral tibia and fibula. Please note that the distal aspects of the bilateral tibia and fibula were incompletely imaged, and dedicated views should be obtained for adequate visualization is indicated. FINDINGS: RIGHT KNEE/TIBIA/FIBULA: Redemonstration of orthopedic fixation plate with screws traversing the tibial plateau/proximal tibia. Hardware appears intact. Similar appearance of deformity along the lateral surface of the proximal tibia. Small joint effusion. Scattered soft tissue calcifications, likely vascular. Mild tricompartmental degenerative changes. LEFT KNEE/TIBIA/FIBULA: Mild degenerative changes with tiny osteophytes and mild joint space narrowing. Small anterior inferior anterior patellar spurs. Extensive deformities at the proximal third of the tibia and fibula are characteristic of prior trauma XR/XR tibia fibula LT 2V IMPRESSION: 1. Postsurgical changes right knee and lower leg. Hardware appears intact. 2. Deformity in the bilateral lower legs as detailed above characteristic of prior trauma. Correlation with clinical exam and history recommended to determine further management. Additional imaging with CT scan or MRI should be considered for better visualization as these modalities are much more sensitive for detection of fracture or other underlying pathology.
[2022-12-17 12:15] LABS: MANUAL DIFF FLAG NO
[2022-12-17 12:47] LABS: Basophils Absolute Auto 0.1 X10*3/uL (0.0-0.2); Basophils Percent Auto 0.5 % (0-2); Eosinophils Absolute Auto 0.3 X10*3/uL (0.0-0.4); Eosinophils Percent Auto 2.1 % (0-4); Hematocrit 30.5 % (42.0-52.0); Hemoglobin 9.7 g/dl (14.0-18.0); Imm Gran Abs Auto 0.07 X10*3/uL (0.00-0.03); Imm Gran Pct Auto 0.5 % (0.0-0.4); Lymphocytes Absolute Auto 2.6 X10*3/uL (1.2-4.9); Lymphocytes Percent Auto 20.4 % (20-40); Mean Corpuscular HGB Conc 31.8 g/dl (31.0-36.0); Mean Corpuscular Hemoglobin 30.4 pg (27.0-33.0); Mean Corpuscular Volume 95.6 fL (80.0-98.0); Mean Platelet Volume 8.6 fL (9.4-12.4); Monocytes Absolute Auto 0.9 X10*3/uL (0.1-1.2); Monocytes Percent Auto 6.8 % (2-11); Neutrophils Absolute Auto 8.9 x10*3/uL (2.0-8.3); Neutrophils Percent Auto 69.7 % (45-73); Platelet Count 424 X10*3/uL (160-400); Red Blood Count 3.19 X10*6/uL (4.60-5.80); Red Cell Distribution Width 13.6 % (11.0-16.0); White Blood Count 12.8 X10*3/uL (4.8-10.8)
[2022-12-17 13:30] LABS: Alanine Aminotransferase < 5 U/L (0-40); Albumin Level 3.4 g/dL (3.5-5.0); Alkaline Phosphatase 79 U/L (39-117); Anion Gap 14 (12-20); Aspartate Amino Transferase 12 U/L (5-37); Bilirubin Total 0.4 mg/dL (0.0-1.0); Blood Urea Nitrogen 15 mg/dL (9-16); Calcium 9.4 mg/dL (8.4-10.2); Carbon Dioxide 26 mmol/L (22-29); Chloride 101 mmol/L (96-108); Estimated Glomerular Filt Rate > 60; Glucose Random 140 mg/dL (60-115); Potassium 3.7 mmol/L (3.3-5.1); Sodium 137 mmol/L (135-145); Total Protein 7.4 g/dL (6.5-8.0)
[2022-12-17 13:39] LABS: TSH reflex Free T4 0.85 uIU/mL (0.32-4.0); Vitamin D 25-OH Total 21.2 ng/mL (>30)
[2022-12-17 13:49] LABS: Folate 6.2 ng/mL (> or = 4.0); Vitamin B12 471 pg/mL (200-900)
[2022-12-17 13:58] LABS: Appearance Urine Clear; Color Urine Yellow; Glucose Urine UA Negative (Negative); Leukocyte Esterase Urine Negative (Negative); Nitrite Urine Negative (Negative); PH 6.5 (5.0-9.0); Urine Blood Negative (Negative); Urine Ketones Negative (Negative); Urine Protein Trace mg/dL (Neg-Trace)
== END 2022-12-17 12:02 | disposition home or self-care (01) ==
LOC: HO.LAB 12:01
PROVIDERS: PCP Internal Medicine; Visit Provider Internal Medicine
DX: F17.200 Nicotine dependence, unspecified, uncomplicated (principal); M79.604 Pain in right leg; M79.605 Pain in left leg; R22.43 Localized swelling, mass and lump, lower limb, bilateral; M25.561 Pain in right knee; M25.562 Pain in left knee; J98.8 Other specified respiratory disorders; R63.6 Underweight; F03.90 Unspecified dementia, unspecified severity, without behavioral disturbance, psychotic disturbance, mood disturbance, and anxiety; I10 Essential (primary) hypertension; E55.9 Vitamin D deficiency, unspecified; E78.00 Pure hypercholesterolemia, unspecified; R30.0 Dysuria; E53.8 Deficiency of other specified B group vitamins
CPT/HCPCS: 36415; 71046; 73564; 73590; 80053; 81003; 82306; 82607; 82746; 84443; 85025

== ENCOUNTER 2023-01-18 11:05 | Outpatient (REF) | payer OTHER, SELFPAY | END 2023-01-18 11:06 | disposition home or self-care (01) | LOC: HO.PET 11:05 | PROVIDERS: PCP Internal Medicine; Visit Provider Internal Medicine Pulmonary Disease | DX: Z13.89 Encounter for screening for other disorder (principal) ==

== ENCOUNTER 2023-02-01 09:24 | Outpatient (REF) | payer OTHER, SELFPAY ==
--- NOTE | ~2023-02-01 | PE_ITS ---
EXAMINATION: Fluorine-18 FDG PET/CT Scan CLINICAL INDICATION: Initial treatment management. Biapical pleuroparenchymal opacities initially seen on lung cancer screening CT study done on 07/23/2022 and subsequently on 12/07/2022. For follow-up. PROCEDURE: 60 minutes following the intravenous administration of 13.3 mCi of fluorine 18 FDG, images from the base of the skull to the mid thighs were obtained using a combined PET/CT scanner with CT scan based attenuation correction. No intravenous contrast was administered. Transverse, coronal, sagittal, and volume reconstruction projections were obtained. The patient's blood glucose as determined by a finger stick, was 73 mg/dl immediately prior to injection. The radiotracer was injected intravenously through the right antecubital superficial vein, without any complications. Total CT exam dose-length product 240.43 mGy-cm * These CT images were obtained using dose optimization techniques as appropriate, variously including the following: Automated exposure control * Adjustment of mA and/or kV according to patient size (this includes techniques or standardized protocols for targeted exams where dose is matched to indication/reason for exam; i.e. extremities or head) * Use of iterative reconstruction technique COMPARISON: CT of the chest done on 12/07/2022 and 07/23/2022. CT of the abdomen and pelvis done on 11/04/2022. FINDINGS: Specific note is made of generalized decrease body fat. SUV max REFERENCE: Blood: 3.2 (96/267). Liver: 3.3 (131/267). HEAD AND NECK: No abnormal radiotracer uptake. No large intracranial hemorrhage, acute territorial infarct or significant shift of midline structures. CHEST: Ports and Devices: None Lungs: Extensive paraseptal emphysematous disease is present at both lung apices. Superimposed pleuroparenchymal thickening is present at left lung apex without evidence of any discrete focal suspicious mass. At the right lung apex however, pleural-based irregular soft tissue thickening is seen laterally with SUV max of 2.1 (60/267). Further inferiorly there is a subcentimeter nodule noted with SUV max of 1.1 (65/267). In addition, further inferiorly at the level of the arch of the aorta there is a second site of pleural thickening posteriorly with SUV max of 1.5 (68/267). Presumed calcified granuloma is noted at superior segment of left lower lobe of the lung (76/267). The tracheobronchial tree is patent. Pleura: No significant pleural effusion. Lymph Nodes: No tracer-avid mediastinal, hilar or internal mammary or axillary lymphadenopathy. Mediastinum: Small volume simple appearing pericardial effusion is seen. Breasts/Chest Wall: No abnormal radiotracer uptake. ABDOMEN/PELVIS: Liver/Biliary System: No focal tracer-avid liver lesion. The gallbladder shows few punctate calcifications consistent with calculi. Pancreas: Remarkable for presence of large macrocalcifications at the inferior posterior medial aspect of the pancreatic head extending into the uncinate process without any discrete mass on this limited nondiagnostic quality CT study. Specifically, no tracer avid pancreatic disease is seen. The proximal pancreatic duct appear to be dilated. The appearance is similar to prior study done on 11/04/2022. Spleen: No abnormal radiotracer uptake. No evidence of splenomegaly. Adrenal Glands: No abnormal radiotracer uptake. Kidneys: No hydronephrosis, hydroureter or renal calculi bilaterally. Bowel: Focal intense tracer avidity is noted in the region of the right-sided colon at right iliac fossa with SUV max of 10.2 (174/267), for which colonoscopy/direct visualization is recommended. Lymph Nodes: No tracer avid retroperitoneal, mesenteric or pelvic and/or groin lymphadenopathy. Pelvic Organs: The urinary bladder is underdistended. No pelvic mass no evidence of any free fluid or free air. MUSCULOSKELETAL: No suspicious focal tracer avid osseous disease. VASCULAR: Calcific atherosclerotic disease of the aorta including carotid and coronary artery calcifications. THE SITE(S) OF MOST INTENSE FDG AVIDITY AND SUV MAX: Right iliac fossa involving the right-sided colon with SUV max of 10.2. Mild tracer avid nonspecific pleural-based irregular thickening at right lung apex with SUV max of 2.1, sub-5 mm mild tracer avid lung nodule also seen at right lung apex with SUV max of 1.1 and another focal area of pleural-based irregular thickening at right upper lobe of the lung posteriorly with SUV max of 1.5. PET/PET CT fusion skull to thigh IMPRESSION: 1. Previously documented, clinically known nonspecific pleural-based irregular thickening (2 sites) show mild tracer avidity with SUV max of 2.1 and 1.5 respectively. In addition, there is a sub-5 mm mild tracer avid lung nodules also identified at right lung apex with SUV max of 1.1. 2. No significant tracer avid disease involving left lung apex. 3. Persistent moderate to severe paraseptal emphysematous disease at both upper lobe. 4. Likely calcified granuloma at superior segment of left lower lobe of the lung. 5. No evidence of tracer avid supraclavicular or mediastinal or hilar lymphadenopathy or pleural effusion. 6. Small volume simple-appearing non tracer avid pericardial effusion however is noted. 7. 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 8. No tracer avid focal abnormality within the liver, adrenal gland or within the bones.
== END 2023-02-01 09:25 | disposition home or self-care (01) ==
LOC: HO.PET 09:24
PROVIDERS: PCP Internal Medicine; Visit Provider Internal Medicine Pulmonary Disease
DX: Z13.89 Encounter for screening for other disorder (principal)

== ENCOUNTER 2023-02-08 09:59 | Outpatient (AMB) | payer OTHER, SELFPAY ==
--- NOTE | 2023-02-08 10:01 | A.OFFVIS_ITS ---
Intake Vital Signs 02/08/23 10:10 Height 5 ft 8 in Weight 93 lb BMI 14.1 BP 105/59 L Blood Pressure Location Rt brachial Position Sitting Pulse 93 Intake Visit Reasons: Pulmonary nodule Intake Note: This patient was referred by Salina Isbell PA-C for an assessment for pulmonary nodule. Patient c/o; reports no changes. 02/01/2023- PET Scan [employer] Required: No Accompanied by: Family/Other Allergies No Known Allergies [No Known Allergies*] Allergy (Verified 02/08/23 10:11) HPI HPI Comments History of Present Illness Details Patient presents here with his family for evaluation of his weight loss and significant smoking issues. Patient has lost approximately 12-15 lb over the last several months time. He is and visual smoker. He is also a former EtOH abuser but has abstained for the last 10 years. Patient recent colonoscopy which was within normal limits . Patient also had a PET scan with a collection of nonspecific findings. Non specific, previously documented findings of lung apices demonstrated. Chart was reviewed patient evaluated [facility] Medical History (Updated 12/13/22 @ 15:44 by Deion Shafer MD) Gastritis Tubular adenoma Nicotine dependence, cigarettes, uncomplicated Abdominal pain Depression Anxiety History of hepatitis C Pure hypercholesterolemia Surgical History History of surgery on lower extremity History of shoulder surgery History of colonoscopy History of esophagogastroduodenoscopy (EGD) History of cataract surgery Family History Father Medical history unknown Mother Diabetes Maternal Grandmother Lung cancer Maternal Uncle Colon cancer CVD (cardiovascular disease) Other Substance abuse Social History Housing: Apartment Alcohol intake: former Patient Tobacco Use Status: Current everyday Tobacco user Tobacco use type: Cigarette Years Smoked: (onset 13yo, 1ppd x 54yrs, 50pyh) e-Cigarette/Vaping Use: Never Used Second Hand Smoke Exposure: Yes service: No Current occupational status: disabled 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 In no acute distress. HEENT Other: No obvious cervical, periclavicular, axillary, or groin adenopathy. Chest Other: Emaciated chest. Breath sounds bilaterally, consistent with COPD. GI Other: Abdomen soft, scaphoid, benign Assessment & Plan Assessment & Plan (1) Nodule of upper lobe of right lung: Comment: 3.7cm irregular thickening with 8mm nodular component in Right lung apex Code(s): R91.1 - Solitary pulmonary nodule Plan At present, no acute surgical issues. Current recommendation is for the patient to be followed up in pulmonary clinic to aid in his COPD issues and smoking cessation. This was discussed with the family as well and all questions answered. Arrangements were made for this. Patient will follow-up p.r.n.. Coding Level of Care Code New Pt Level 4 (68537) Diagnoses Nodule of upper lobe of right lung R91.1
[2023-02-08 10:10] VITALS: BP 105/59; PULSE 93; BMI 14.1
== END 2023-02-08 10:24 | disposition home or self-care (01) ==
PROVIDERS: PCP Internal Medicine; Referring Provider Physician Assistant Medical; Visit Provider Surgery
DX: R91.1 Solitary pulmonary nodule (principal)
CPT/HCPCS: 99204

== ENCOUNTER → 2023-02-08 09:59 | Outpatient (BNVA) | payer OTHER, SELFPAY | PROVIDERS: PCP Internal Medicine; Referring Provider Physician Assistant Medical; Visit Provider Surgery | DX: R91.1 Solitary pulmonary nodule (principal) | CPT/HCPCS: 99202 ==

== ENCOUNTER 2023-03-16 12:02 | Outpatient (AMB) | payer OTHER, SELFPAY ==
[2023-03-16 12:31] VITALS: BP 98/66; PULSE 98; O2SAT 98; BMI 14.0
--- NOTE | 2023-03-16 12:31 | A.OFFPC_ITS ---
Vital Signs 03/16/23 12:31 Height 5 ft 8 in Weight 92 lb 2 oz BMI 14.0 BP 98/66 Blood Pressure Location Lt brachial Position Sitting Pulse 98 Pulse Source Pulse Oximeter Pulse Oximetry (%) 98 Oxygen Delivery Method Room Air Intake Visit Reasons: dementia, underweight, knee / leg pain Office Manager Receptionist Required: No Accompanied by: Self / Same As Patient Allergies No Known Allergies [No Known Allergies*] Allergy (Verified 03/16/23 13:02) Medication List - Last Reconciled 03/16/23 by Deion Shafer MD donepezil 5 mg PO DAILY food supplemt, lactose-reduced (Ensure oral liquid) 1 ea PO .TID with meals pantoprazole 40 mg PO DAILY prazosin 1 mg PO BEDTIME quetiapine 50 mg PO BEDTIME sucralfate 10 mL PO BEDTIME Tobacco use date assessed: 03/16/23 Fall risk assessment: 2 + Falls in past year Last assessed Fall Risk: 03/16/23 Dental Screening Dental Screen Date: 03/16/23 Did you have a dental visit in the last 12 months?: No Did you have a dental problem in the last 6 months where you did not have access to dental care?: No Was dental information given to patient?: No HPI dementia, underweight, knee / leg pain HPI Details Patient comes in today for his follow up visit His [id number] is again accompanying him to his visit to day to help with relaying information due to patient's dementia and language barrier Patient is reportedly doing well overall but they states that they have never been able to get the Ensure Rx that we sent in for him a few months ago and they are still buying and paying for his Ensure [id number] Patient is reportedly sleeping well at night and is able to eat and finish up whatever they give him for his food and drinks States that his psychiatrist recently dropped his Quetiapine dose from 150 mg Q HS to 50 mg Q HS Patient denies any headaches or dizziness He denies any chest pains, no SOB No nausea/vomiting, no abdominal pain No change in bowel habits noted They continue to be bothered by the prominence/visibility of the screws that he has on his right knee - his [id number] would like to know what his x-rays done a few months ago showed PFSH Medical History Gastritis Tubular adenoma Nicotine dependence, cigarettes, uncomplicated Abdominal pain Depression Anxiety History of hepatitis C Pure hypercholesterolemia Surgical History History of surgery on lower extremity History of shoulder surgery History of colonoscopy History of esophagogastroduodenoscopy (EGD) History of cataract surgery Family History Father Medical history unknown Mother Diabetes Maternal Grandmother Lung cancer Maternal Uncle Colon cancer CVD (cardiovascular disease) Other Substance abuse Social History Housing: Apartment Alcohol intake: former Patient Tobacco Use Status: Current everyday Tobacco user Tobacco use type: Cigarette Years Smoked: (onset 13yo, 1ppd x 54yrs, 50pyh) e-Cigarette/Vaping Use: Never Used Second Hand Smoke Exposure: Yes service: No Current occupational status: disabled 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) Hearing needs: No Vision needs: No Questionnaire PHQ-9 Over the last 2 weeks, how often have you been bothered by any of the following problems? 1. Little interest or pleasure in doing things: not at all 2. Feeling down, depressed, or hopeless: several days 3. Trouble falling or staying asleep, or sleeping too much: several days 4. Feeling tired or having little energy: not at all 5. Poor appetite or overeating: not at all 6. Feeling bad about yourself - or that you are a failure or have let yourself or your family down: not at all 7. Trouble concentrating on things, such as reading the newspaper or watching television: not at all 8. Moving or speaking so slowly that other people could have noticed. Or the opposite - being so fidgety or restless that you have been moving around a lot more than usual: not at all 9. Thoughts that you would be better off or of hurting yourself in some way: not at all Total score: 2 Depression Screening Interpretation: Negative Depression Screening Done: Yes 50317 - PHQ-9 Billing: Yes Source: Developed by Drs. Rex Sy, Barb Tucker, Dominic Gamino and colleagues, with an educational rojelio from [employer]. Thrive Questionnaire Date Thrive assessed: 03/16/23 I am a: Patient What is your living situation today?: I have a steady place to live Within the past 12 months, did the food you bought not last and you didn't have the money to get more?: Never true Within the past 12 months, did you worry whether your food would run out before you got money to buy more?: Never true Do you have trouble paying for medicines?: No Do you have trouble getting transportation to medical appointments?: No Do you have trouble paying your heating and electricity bill?: No Do you have trouble taking care of your child, family member or friend?: No Do you have trouble with day-to-day activities such as bathing, preparing meals, shopping, managing finances, etc.?: No Are you currently unemployed and looking for a job?: No Are you interested in more education?: No Please select the resources that you would like help with: None Currently or been in a relationship where the following occur: no concerns reported AUDIT C Alcohol Use Questionnaire (AUDIT-C) 1. How often do you have a drink containing alcohol?: Never 2. How many drinks containing alcohol do you have on a typical day when you are drinking?: 1 or 2 3. How often do you have six or more drinks on one occasion?: Never Total Score: 0 Score Reviewed/Action Taken: Yes SCOTT-7 AMB Questionnaire SCOTT-7 Date SCOTT - 7 assessed: 03/16/23 Feeling nervous, anxious, or on edge: 0 = Not at all Not being able to stop or control worryin = Not at all Worrying too much about different things: 0 = Not at all Trouble relaxin = Not at all Being so restless that it is hard to sit still: 0 = Not at all Becoming easily annoyed or irritable: 0 = Not at all Feeling afraid as if something awful might happen: 0 = Not at all Total SCOTT-7 score (0-4 normal; 5-9 mild; 10-14 moderate; 15-21 severe): 0 Source: Developed by Drs. Rex Sy, Barb Tucker, Dominic Gamino and colleagues, with an educational rojelio from [employer]. Review of Systems Const Unobtainable due to mental status (ROS obtained primarily from patient's [id number] - patient is confused) Denies fever(s) and Denies headache(s) ENT Denies dysphagia, Denies dizziness, Denies headache(s), Denies odynophagia and Denies sore throat Card Denies chest pain, Denies palpitations and Denies dyspnea Resp Denies cough and Denies dyspnea GI Details: per [id number], does not eat much throughout the day and just drinks coffee and watches television but he is getting better lately at this and is eating whenever they give him something Reports abdominal pain (occasionally; not occurring as often as before), Denies constipation, Denies dysphagia, Reports fecal incontinence (wears adult diapers), Denies diarrhea, Denies nausea, Denies odynophagia and Denies vomiting Denies dysuria and Reports urinary incontinence Musc Reports arthralgias (right knee ) Skin/Breast Denies rash Neuro Denies behavioral changes, Reports confusion, Denies dizziness and Denies headache(s) Psych Denies behavioral changes and Reports confusion Endo Denies palpitations Physical exam (Primary Care) Vital Signs: Last Vital Signs Pulse 98 03/16/23 12:31 BP 98/66 03/16/23 12:31 Pulse Ox 98 03/16/23 12:31 Oxygen Delivery Method Room Air 03/16/23 12:31 BMI result Body Mass Index 14.0 Tobacco/Smoking Status: Tobacco use Status Tobacco use date assessed 03/16/23 03/16/23 12:34 Patient Tobacco Use Status Current everyday Tobacco 03/16/23 12:34 Tobacco use type Cigarette 03/16/23 12:34 e-Cigarette/Vaping Use Never Used 03/16/23 12:34 PHQ-9: PHQ-9 Score PHQ-9: Total score 2 03/16/23 13:24 Depression Screening Interpretation: Negative Thrive Assessment: Date of Thrive Assessment Date Thrive assessed 03/16/23 03/16/23 12:34 Currently or been in a relationship where the following occur: no concerns reported Const General: confusion Orientation/consciousness: confusion HENMT Throat: Yes posterior oropharynx normal and Yes tonsils normal (no TP congestion noted) Neck Neck: Yes no lymphadenopathy and Yes supple Resp Auscultation: clear to auscultation bilaterally, no rales and no wheezes Cardio Rate: regular rate Rhythm: regular rhythm Heart sounds: no murmurs GI Palpation (GI): Soft to palpation, nontender, no guarding and No Rebound tenderness present Auscultation: normal bowel sounds General: Yes no CVA tenderness Back/Spine/Pelvis Back: no CVA tenderness Thoracic/Lumbar Spine: No lumbar spinal tenderness Skin Rashes: no rashes Neuro General: confusion Gait exam (Neuro): Normal gait present Motor exam (neuro): 5/5 motor strength present throughout Extrem Other: (+) multiple screws are prominently visible over the anteromedial aspect of the right knee; (+) minimal tenderness noted on exam; no swelling of the knee joint noted General: Yes no clubbing, cyanosis or edema Right lower extremity: knee Details: tenderness (mild); no swelling Results Reviewed Results Reviewed: Laboratory Tests 12/17/22 12/17/22 12/17/22 12:10 12:10 12:10 WBC Hgb Hct Plt Count Sodium Potassium Creatinine Estimated GFR Random Glucose Calcium AST ALT Vitamin B12 25-OH Vitamin D Total Folate TSH Ur Specific [place] 1.020 Urine Protein Trace Urine Glucose (UA) Negative Urine Blood Negative Urine Nitrite Negative Ur Leukocyte Esterase Negative 12/17/22 12/17/22 12/17/22 12:14 12:14 12:14 WBC 12.8 H Hgb 9.7 L Hct 30.5 L Plt Count 424 H Sodium 137 Potassium 3.7 Creatinine 0.84 Estimated GFR > 60 Random Glucose 140 H Calcium 9.4 AST 12 ALT < 5 Vitamin B12 471 25-OH Vitamin D Total 21.2 Folate 6.2 TSH 0.85 Ur Specific [place] Urine Protein Urine Glucose (UA) Urine Blood Urine Nitrite Ur Leukocyte Esterase Assessment and Plan Assessment & Plan (1) Gastritis: Code(s): K29.70 - Gastritis, unspecified, without bleeding Qualifiers: Chronicity: chronic Gastritis bleeding: without bleeding Gastritis type: other gastritis Qualified Code(s): K29.50 - Unspecified chronic gastritis without bleeding Plan: Reinforced dietary restrictions Continue Carafate 10 ml Q HS Follow up with GI as scheduled (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 Qualifiers: Dementia behavioral disturbance: without behavioral disturbance Qualified Code(s): F10.27 - Alcohol dependence with alcohol-induced persisting dementia Plan: Head CT done in March 2021 came out grossly normal Patient used to drink alcohol heavily for years when he was younger but has reportedly quit a few years ago, per family Was seen by neurology about a year ago and was diagnosed with dementia and MCI and started on Donepezil Continue Donepezil 5 mg QD Follow up with neurology as scheduled Have advised patient's [id number]-nm-skj that his Rx for Ensure was sent in to his pharmacy when they were requested a few months ago so we do not know why the pharmacy is telling them they do not have the Rx - will send in Rx again today (3) Mild cognitive impairment: Comment: (+) some memory loss Code(s): G31.84 - Mild cognitive impairment of uncertain or unknown etiology Plan: Continue Donepezil 5 mg QD Follow up with neurology as scheduled (4) Pure hypercholesterolemia: Code(s): E78.00 - Pure hypercholesterolemia, unspecified Plan: Reinforced low cholesterol diet (5) Anemia: Code(s): D64.9 - Anemia, unspecified Qualifiers: Anemia type: unspecified type Qualified Code(s): D64.9 - Anemia, unspecified Plan: They have been advised that his H/H were very low on his labs done a few months ago, with H/H at 9.7/30.5 Will send him for repeat CBC as well as some other labs TREVON for further evaluation of his anemia (6) COPD (chronic obstructive pulmonary disease): Code(s): J44.9 - Chronic obstructive pulmonary disease, unspecified Qualifiers: COPD type: emphysema Emphysema type: other Qualified Code(s): J43.8 - Other emphysema Plan: Patient had biapical opacities initially seen on routine lung cancer screening CT PET scan done a few weeks ago revealed minimal to no tracer avidity involving the lung apices bilaterally; (+) persistent moderate to severe paraseptal emphysematous disease at both upper lobes - no findings concerning for malignancy He is scheduled to see pulmonary in a couple of weeks (03/30/2023) for further evaluation and management Unclear at this time how effective inhalers will be for patient if he is not able to use them properly with his dementia Dx (7) History of hepatitis C: Comment: (s/p Tx with [facility]) Code(s): Z86.19 - Personal history of other infectious and parasitic diseases Plan: Hepatitis C viral load last checked a couple of years ago came out negligible Repeat hepatitis C viral load last year came back negligible Follow up with GI as scheduled (8) Knee pain, bilateral: Code(s): M25.561 - Pain in right knee; M25.562 - Pain in left knee Qualifiers: Chronicity: unspecified Qualified Code(s): M25.561 - Pain in right knee; M25.562 - Pain in left knee Plan: His knee pains were previously thought to be most likely due to orthopedic hardware jutting out from his knee but his recent knee x-rays proved otherwise X-rays of the right knee done in December 2021 revealed no acutely displaced fractures and no subluxation. The orthopedic fixation plate along the tibial plateau/proximal tibia are without evidence of hardware failure. There is mod erate tricompartmental degenerative osteoarthritis and small joint effusions Repeat x-rays done in December 2022 showed similar findings Left knee x-rays revealed (+) extensive deformities at the proximal third of the tibia and fibula from prior trauma but only (+) mild OA changes Will refer him to orthopedics for further evaluation, recommendations and management (9) Anxiety: Code(s): F41.9 - Anxiety disorder, unspecified Plan: Continue Prazosin 1 mg QHS (10) Depression: Code(s): F32.A - Depression, unspecified Qualifiers: Active/Remission status: currently active Depression Type: major depressive disorder Major depression episode severity: unspecified Major depre ssion recurrence: recurrent Qualified Code(s): F33.9 - Major depressive disorder, recurrent, unspecified Plan: Continue Quetiapine 50 mg Q HS - dose was reportedly recently lowered by psychiatry Follow up with psychiatry as scheduled (11) Smoker: Code(s): F17.200 - Nicotine dependence, unspecified, uncomplicated Plan: Continue Nicotine patches to help him quit smoking Have emphasized to his ueejaq-yf-nny again that patient cannot have the patch on and smoke at the same time - states that she will make sure that he does not fo so Counseling on smoking cessation is impractical due to patient's altered mental status Plan Follow up in 4 months Orders: Orders Complete Blood Count Auto Diff Today D64.9 - Anemia, unspecified, J44.9 - Chronic obstructive pulmonary disease, unspecified, K29.70 - Gastritis, unspecified, without bleeding IRON PROFILE Today D50.9 - Iron deficiency anemia, unspecified, D64.9 - Anemia, unspecified, J44.9 - Chronic obstructive pulmonary disease, unspecified, K29.70 - Gastritis, unspecified, without bleeding TSH reflex Free T4 Today D64.9 - Anemia, unspecified, J44.9 - Chronic obstructive pulmonary disease, unspecified, K29.70 - Gastritis, unspecified, without bleeding Comprehensive Met. Panel Today D64.9 - Anemia, unspecified, J44.9 - Chronic obstructive pulmonary disease, unspecified, K29.70 - Gastritis, unspecified, wi thout bleeding Vitamin B12 and Folate Today D64.9 - Anemia, unspecified, E53.8 - Deficiency of other specified B group vitamins, J44.9 - Chronic obstructive pulmonary disease, unspecified, K29.70 - Gastritis, unspecified, without bleeding Vitamin D 25-OH Total Today D64.9 - Anemia, unspecified, E55.9 - Vitamin D deficiency, unspecified, J44.9 - Chronic obstructive pulmonary disease, unspecified, K29.70 - Gastritis, unspecified, without bleeding Erythropoietin (EPO) Today D64.9 - Anemia, unspecified, J44.9 - Chronic obstructive pulmonary disease, unspecified, K29.70 - Gastritis, unspecified, without bleeding Referrals Orthopedics Referral M25.561 - Pain in right knee, M25.562 - Pain in left knee Medications: Refilled food supplemt, lactose-reduced (Ensure oral liquid) 1 ea PO .TID with meals 90 multiple units 11RF F03.90 - Unspecified dementia, unspecified severity, without behavioral disturbance, psychotic disturbance, mood disturbance, and anxiety, R62.7 - Adult failure to thrive, R63.6 - Underweight Coding Level of Care Code Est Pt Level 4 (62790) Diagnoses Other chronic gastritis without hemorrhage K29.50 Chronicity: chronic Gastritis bleeding: without bleeding Gastritis type: other gastritis 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 Dementia behavioral disturbance: without behavioral disturbance Mild cognitive impairment G31.84 Pure hypercholesterolemia E78.00 Anemia, unspecified type D64.9 Anemia type: unspecified type Other emphysema J43.8 COPD type: emphysema Emphysema type: other History of hepatitis C Z86.19 Pain in both knees, unspecified chronicity M25.561; M25.562 Chronicity: unspecified Anxiety F41.9 Episode of recurrent major depressive disorder, unspecified depression episode severity F33.9 Active/Remission status: currently active Depression Type: major depressive disorder Major depression episode severity: unspecified Major depression recurrence: recurrent Smoker F17.200
== END 2023-03-16 13:19 | disposition home or self-care (01) ==
PROVIDERS: PCP Internal Medicine; Visit Provider Internal Medicine
DX: J43.8 Other emphysema (principal); F10.27 Alcohol dependence with alcohol-induced persisting dementia; F33.9 Major depressive disorder, recurrent, unspecified; K29.50 Unspecified chronic gastritis without bleeding; G31.84 Mild cognitive impairment of uncertain or unknown etiology; E78.00 Pure hypercholesterolemia, unspecified; D64.9 Anemia, unspecified; Z86.19 Personal history of other infectious and parasitic diseases; M25.561 Pain in right knee; M25.562 Pain in left knee; F41.9 Anxiety disorder, unspecified; F17.200 Nicotine dependence, unspecified, uncomplicated
CPT/HCPCS: 99214

== ENCOUNTER 2023-03-16 13:26 | Outpatient (REF) | payer OTHER, SELFPAY ==
[2023-03-16 13:47] LABS: MANUAL DIFF FLAG NO
[2023-03-16 14:32] LABS: Basophils Absolute Auto 0.1 X10*3/uL (0.0-0.2); Basophils Percent Auto 0.7 % (0-2); Eosinophils Absolute Auto 0.3 X10*3/uL (0.0-0.4); Eosinophils Percent Auto 2.4 % (0-4); Hematocrit 33.5 % (42.0-52.0); Hemoglobin 10.5 g/dl (14.0-18.0); Imm Gran Abs Auto 0.03 X10*3/uL (0.00-0.03); Imm Gran Pct Auto 0.3 % (0.0-0.4); Lymphocytes Absolute Auto 2.2 X10*3/uL (1.2-4.9); Lymphocytes Percent Auto 20.1 % (20-40); Mean Corpuscular HGB Conc 31.3 g/dl (31.0-36.0); Mean Corpuscular Hemoglobin 30.3 pg (27.0-33.0); Mean Corpuscular Volume 96.8 fL (80.0-98.0); Mean Platelet Volume 8.9 fL (9.4-12.4); Monocytes Absolute Auto 0.6 X10*3/uL (0.1-1.2); Monocytes Percent Auto 5.3 % (2-11); Neutrophils Absolute Auto 7.6 x10*3/uL (2.0-8.3); Neutrophils Percent Auto 71.2 % (45-73); Platelet Count 352 X10*3/uL (160-400); Red Blood Count 3.46 X10*6/uL (4.60-5.80); Red Cell Distribution Width 14.9 % (11.0-16.0); White Blood Count 10.7 X10*3/uL (4.8-10.8)
[2023-03-16 15:11] LABS: Alanine Aminotransferase 15 U/L (0-40); Albumin Level 3.6 g/dL (3.5-5.0); Alkaline Phosphatase 80 U/L (39-117); Anion Gap 14 (12-20); Aspartate Amino Transferase 17 U/L (5-37); Bilirubin Total 0.2 mg/dL (0.0-1.0); Blood Urea Nitrogen 27 mg/dL (9-16); Calcium 9.7 mg/dL (8.4-10.2); Carbon Dioxide 31 mmol/L (22-29); Chloride 99 mmol/L (96-108); Estimated Glomerular Filt Rate > 60; Glucose Random 179 mg/dL (60-115); Iron 40 mcg/dL (45-160); Percent Iron Saturation 21 % (15-50); Potassium 4.5 mmol/L (3.3-5.1); Sodium 139 mmol/L (135-145); Total Iron Binding Capacity 195 mcg/dL (228-428); Total Protein 7.7 g/dL (6.5-8.0); Unsaturated Iron Binding 155 ug/dL
[2023-03-16 15:29] LABS: TSH reflex Free T4 0.59 uIU/mL (0.32-4.0)
[2023-03-16 15:37] LABS: Folate 8.4 ng/mL (> or = 4.0); Vitamin B12 546 pg/mL (200-900)
[2023-03-18 02:28] LABS: Erythropoietin (EPO) 9.2 mIU/mL (2.6-18.5)
== END 2023-03-16 13:27 | disposition home or self-care (01) ==
LOC: HO.LAB 13:26
PROVIDERS: PCP Internal Medicine; Visit Provider Internal Medicine
DX: D50.9 Iron deficiency anemia, unspecified (principal); K29.70 Gastritis, unspecified, without bleeding; J44.9 Chronic obstructive pulmonary disease, unspecified; D64.9 Anemia, unspecified; E53.8 Deficiency of other specified B group vitamins; E55.9 Vitamin D deficiency, unspecified
CPT/HCPCS: 36415; 80053; 82306; 82607; 82668; 82746; 83540; 84443; 85025

== ENCOUNTER 2023-03-30 10:28 | Outpatient (AMB) | payer OTHER, SELFPAY ==
[2023-03-30 10:31] VITALS: BP 98/58; PULSE 76; O2SAT 100; BMI 14.7
--- NOTE | 2023-03-30 10:31 | A.OFFVIS_ITS ---
Intake Vital Signs 03/30/23 10:31 Height 5 ft 8 in Weight 97 lb 0.054 oz BMI 14.7 BP 98/58 L Blood Pressure Location Rt brachial Position Sitting Pulse 76 Pulse Source Doppler Pulse Oximetry (%) 100 Oxygen Delivery Method Room Air Intake Visit Reasons: copd Allergies No Known Allergies [No Known Allergies*] Allergy (Verified 03/30/23 10:34) HPI copd HPI Details 67-year-old gentleman, active 40+ pack-y ear smoker trying to quit referred for evaluation of underlying likely COPD. Patient states that he has some dyspnea on exertion when walking up list as up the inclines. He denies coughing, wheezing or sputum production. Patient is currently on no bronchodilator therapy. He does have history of emphysema in his maternal aunt. He denies exposure to industrial dusts. Patient is following up with lung cancer screening program. [facility] Medical History Gastritis Tubular adenoma Nicotine dependence, cigarettes, uncomplicated Abdominal pain Depression Anxiety History of hepatitis C Pure hypercholesterolemia Surgical History History of surgery on lower extremity History of shoulder surgery History of colonoscopy History of esophagogastroduodenoscopy (EGD) History of cataract surgery Family History Father Medical history unknown Mother Diabetes Maternal Grandmother Lung cancer Maternal Uncle Colon cancer CVD (cardiovascular disease) Other Substance abuse Social History (Updated 03/30/23 @ 10:35 by Bonnie Craig [facility]) Housing: Apartment Alcohol intake: former Patient Tobacco Use Status: Current everyday Tobacco user Tobacco use type: Cigarette Cigarettes Per Day: 12 Years Smoked: (onset 13yo, 1ppd x 54yrs, 50pyh) e-Cigarette/Vaping Use: Never Used Second Hand Smoke Exposure: Yes service: No Current occupational status: disabled 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) Hearing needs: No Vision needs: No Review of Systems Const Denies daytime sleepiness, Denies excessive sweating, Denies fatigue, Denies fever(s), Denies lethargy, Denies malaise, Denies night sweats, Denies snoring and Denies weight loss Eyes Denies blurry vision and Denies itchy eyes ENT Denies nasal congestion, Denies post nasal drip, Denies sinus pain, Denies sinus pressure and Denies other ( Thrush) Card Denies chest pain, Denies pedal edema, Denies dyspnea, Reports dyspnea on exertion, Denies orthopnea and Denies paroxysmal nocturnal dyspnea Resp Denies cough, Denies hemoptysis, Denies excessive phlegm production, Denies dyspnea, Reports dyspnea on exertion, Denies snoring and Denies wheezing GI Denies abdominal pain and Denies heartburn Musc Denies myalgias, Denies arthralgias and Denies joint swelling Skin/Breast Denies rash Neuro Denies memory loss and Denies seizure-like activity Psych Denies abnormal sleep pattern, Denies anxiety and Denies memory loss Endo Denies excessive sweating, Denies fatigue and Denies heat intolerance Carl/Lymph Denies easy bruising Aller/Immun Denies itchy eyes, Denies seasonal rhinorrhea and Denies wheezing Physical Exam Vital Signs: Last Vital Signs Pulse 76 03/30/23 10:31 BP 98/58 L 03/30/23 10:31 Pulse Ox 100 03/30/23 10:31 Oxygen Delivery Method Room Air 03/30/23 10:31 BMI result Body Mass Index 14.7 Const General: no acute distress and alert Nutritional Appearance: not obese Orientation/consciousness: Other orientation findings ( oriented) HEENT Head: Yes atraumatic Eyes General: appearance normal, both eyes and all related structures Sclerae: sclerae normal EOM: EOMs intact bilaterally Neck Neck: Yes supple Lymphatic: no lymphadenopathy noted Resp Effort & Inspection: normal respiratory effort and no use of accessory muscles Auscultation: clear to auscultation bilaterally Cardio Rate: regular rate Rhythm: regular rhythm Heart sounds: no gallops, no murmurs and no rubs Skin General skin exam: other ( warm) Extrem General: No clubbing, No cyanosis and No edema Assessment & Plan Assessment & Plan (1) COPD (chronic obstructive pulmonary disease): Code(s): J44.9 - Chronic obstructive pulmonary disease, unspecified Qualifiers: COPD type: emphysema Emphysema type: other Qualified Code(s): J43.8 - Other emphysema Plan: Likely underlying COPD of unclear severity suboptimally controlled. Will start on empiric Anoro and albuterol MDI. Will obtain full PFT. (2) Nodule of upper lobe of right lung: Comment: 3.7cm irregular thickening with 8mm nodular component in Right lung apex Code(s): R91.1 - Solitary pulmonary nodule Plan: Follows with lung cancer screening program and recently evaluated by thoracic surgery with no intervention deemed necessary. Will continue with yearly screening. Orders: Orders PFT pulmonary function test Today J43.8 - Other emphysema Medications: New umeclidinium-vilanterol 62.5-25 mcg/actuation (Anoro Ellipta) 1 inh inhalation DAILY 1 ea 6RF 30 days J43.8 - Other emphysema albuterol sulfate 90 mcg/actuation 2 puffs inhalation Q4-6H PRN 1 ea 0RF shortness of breath or wheezing J43.8 - Other emphysema Coding Level of Care Code New Pt Level 4 (02764) Diagnoses Other emphysema J43.8 COPD type: emphysema Emphysema type: other Nodule of upper lobe of right lung R91.1
== END 2023-03-30 10:51 | disposition home or self-care (01) ==
PROVIDERS: PCP Internal Medicine; Visit Provider Internal Medicine Pulmonary Disease
DX: J43.8 Other emphysema (principal); R91.1 Solitary pulmonary nodule
CPT/HCPCS: 99204

== ENCOUNTER → 2023-03-30 10:28 | Outpatient (BNVA) | payer OTHER, SELFPAY | PROVIDERS: PCP Internal Medicine; Visit Provider Internal Medicine Pulmonary Disease | DX: J43.8 Other emphysema (principal); R91.1 Solitary pulmonary nodule | CPT/HCPCS: 99202 ==

== ENCOUNTER 2023-06-29 11:10 | Outpatient (AMB) | payer OTHER, SELFPAY ==
[2023-06-29 11:12] VITALS: BP 102/58; PULSE 73; O2SAT 98; BMI 15.6
--- NOTE | 2023-06-29 11:12 | MHC.OFFVIS ---
Vital Signs 06/29/23 11:12 Height 5 ft 8 in Weight 102 lb 8.239 oz BMI 15.6 BP 102/58 L Blood Pressure Location Rt brachial Position Sitting Pulse 73 Pulse Source Doppler Pulse Oximetry (%) 98 Oxygen Delivery Method Room Air Intake Visit Reasons: COPD Allergies No Known Allergies [No Known Allergies*] Allergy (Verified 06/29/23 11:17) HPI HPI COPD: Details: 68-year-old gentleman, active 40+ pack-year smoker trying to quit followed for underlying COPD of unclear severity. Patient was not able to attend his pulmonary function test. He did start on Anoro with significant improvement in his symptoms. He is also rarely using his albuterol MDI. He denies any recent exacerbations. [facility] Medical History Gastritis Tubular adenoma Nicotine dependence, cigarettes, uncomplicated Abdominal pain Depression Anxiety History of hepatitis C Pure hypercholesterolemia Surgical History History of surgery on lower extremity History of shoulder surgery History of colonoscopy History of esophagogastroduodenoscopy (EGD) History of cataract surgery Family History Father Medical history unknown Mother Diabetes Maternal Grandmother Lung cancer Maternal Uncle Colon cancer CVD (cardiovascular disease) Other Substance abuse Social History Housing: Apartment Alcohol intake: former Patient Tobacco Use Status: Current everyday Tobacco user Tobacco use type: Cigarette Cigarettes Per Day: 12 Years Smoked: (onset 13yo, 1ppd x 54yrs, 50pyh) e-Cigarette/Vaping Use: Never Used Second Hand Smoke Exposure: Yes service: No Current occupational status: disabled 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) Hearing needs: No Vision needs: No Review of Systems Const Denies daytime sleepiness, Denies excessive sweating, Denies fatigue, Denies fever(s), Denies lethargy, Denies malaise, Denies night sweats, Denies snoring and Denies weight loss Eyes Denies blurry vision and Denies itchy eyes ENT Denies nasal congestion, Denies post nasal drip, Denies sinus pain, Denies sinus pressure and Denies other ( Thrush) Card Denies chest pain, Denies pedal edema, Denies dyspnea, Denies orthopnea and Denies paroxysmal nocturnal dyspnea Resp Denies cough, Denies hemoptysis, Denies excessive phlegm production, Denies dyspnea, Denies snoring and Denies wheezing GI Denies abdominal pain and Denies heartburn Musc Denies myalgias, Denies arthralgias and Denies joint swelling Skin/Breast Denies rash Neuro Denies memory loss and Denies seizure-like activity Psych Denies abnormal sleep pattern, Denies anxiety and Denies memory loss Endo Denies excessive sweating, Denies fatigue and Denies heat intolerance Carl/Lymph Denies easy bruising Aller/Immun Denies itchy eyes, Denies seasonal rhinorrhea and Denies wheezing Physical Exam Vital Signs: Last Vital Signs Pulse 73 06/29/23 11:12 BP 102/58 L 06/29/23 11:12 Pulse Ox 98 06/29/23 11:12 Oxygen Delivery Method Room Air 06/29/23 11:12 BMI result Body Mass Index 15.6 Const General: no acute distress and alert Nutritional Appearance: not obese Orientation/consciousness: Other orientation findings ( oriented) HEENT Head: Yes atraumatic Eyes General: appearance normal, both eyes and all related structures Sclerae: sclerae normal EOM: EOMs intact bilaterally Neck Neck: Yes supple Lymphatic: no lymphadenopathy noted Resp Effort & Inspection: normal respiratory effort and no use of accessory muscles Auscultation: clear to auscultation bilaterally Cardio Rate: regular rate Rhythm: regular rhythm Heart sounds: no gallops, no murmurs and no rubs Skin General skin exam: other ( warm) Extrem General: No clubbing, No cyanosis and No edema Assessment & Plan Assessment & Plan (1) COPD (chronic obstructive pulmonary disease): Code(s): J44.9 - Chronic obstructive pulmonary disease, unspecified Category: Medical Qualifiers: COPD type: emphysema Emphysema type: other Qualified Code(s): J43.8 - Other emphysema Plan: Now with improved control on Anoro and albuterol MDI. Continue current regimen. Will re-attempt PFT. (2) Nicotine dependence, cigarettes, uncomplicated: Comment: (current smoker, onset 13yo, 1ppd x 54yrs, 50pyh) Code(s): F17.210 - Nicotine dependence, cigarettes, uncomplicated Category: Medical Plan: Results of lung screening CT chest and PET-CT reviewed, no worrisome nodules at this time. Continue with yearly screening. Coding Level of Care Code Est Pt Level 4 (00577) Diagnoses Other emphysema J43.8 COPD type: emphysema Emphysema type: other Nicotine dependence, cigarettes, uncomplicated F17.210
== END 2023-06-29 11:25 | disposition home or self-care (01) ==
PROVIDERS: PCP Internal Medicine; Visit Provider Internal Medicine Pulmonary Disease
DX: J43.8 Other emphysema (principal); F17.210 Nicotine dependence, cigarettes, uncomplicated
CPT/HCPCS: 99214

== ENCOUNTER → 2023-06-29 11:10 | Outpatient (BNVA) | payer OTHER, SELFPAY | PROVIDERS: PCP Internal Medicine; Visit Provider Internal Medicine Pulmonary Disease | DX: J43.8 Other emphysema (principal); F17.210 Nicotine dependence, cigarettes, uncomplicated | CPT/HCPCS: 99212 ==

== ENCOUNTER 2023-07-19 12:29 | Outpatient (AMB) | payer OTHER, SELFPAY ==
--- NOTE | 2023-07-19 12:32 | MHC.PC.OV ---
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 Operator Required: No Gas Main Fitter: Not Required per policy Accompanied by: [id number] Allergies No Known Allergies [No Known Allergies*] Allergy (Verified 07/19/23 13:01) Medication List - Last Reconciled 07/19/23 by Deion Shafer MD albuterol sulfate 90 mcg/actuation (Ventolin HFA) 2 puffs inhalation Q4-6H PRN donepezil 5 mg PO DAILY food supplemt, lactose-reduced (Ensure oral liquid) 1 ea PO .TID with meals pantoprazole 40 mg PO DAILY prazosin 1 mg PO BEDTIME quetiapine 50 mg PO BEDTIME [SHOWER CHAIR As directed] sucralfate 10 mL PO BEDTIME umeclidinium-vilanterol 62.5-25 mcg/actuation (Anoro Ellipta) 1 inh inhalation DAILY 30 days Tobacco use date assessed: 03/16/23 Fall risk assessment: No Falls in past year Last assessed Fall Risk: 07/19/23 Dental Screening Dental Screen Date: 03/16/23 HPI 4 month f/u HPI Details Patient comes in today for his follow up visit - is accompanied by his [id number] today, who provides most of his information as patient is unable to reliably provide them due to his dementia Patient still lives at home with family and his [id number] states that someone is with him all the time (27/09) to keep an eye on him He is reportedly doing better with his breathing lately on his current inhalers and Dr. Hughes is trying to get him scheduled to do another PFT to see if he can complete the test this time but patient's [id number] states that patient continues to smoke and does not appear to be able to quit smoking He denies any headaches or dizziness Denies any chest pains No nausea/vomiting, no abdominal pain No change in bowel habits noted They are also requesting for an Rx for a shower chair that patient can use as he has been very unsteady while showering lately and they are concerned that he may fall and get hurt [facility] Medical History (Updated 07/19/23 @ 13:32 by Deion Shafer MD) Osteoarthritis of both knees Gastritis Tubular adenoma Nicotine dependence, cigarettes, uncomplicated Abdominal pain Depression Anxiety History of hepatitis C Pure hypercholesterolemia Surgical History History of surgery on lower extremity History of shoulder surgery History of colonoscopy History of esophagogastroduodenoscopy (EGD) History of cataract surgery Family History Father Medical history unknown Mother Diabetes Maternal Grandmother Lung cancer Maternal Uncle Colon cancer CVD (cardiovascular disease) Other Substance abuse Social History Housing: Apartment Alcohol intake: former Patient Tobacco Use Status: Current everyday Tobacco user Tobacco use type: Cigarette Cigarettes Per Day: 12 Years Smoked: (onset 13yo, 1ppd x 54yrs, 50pyh) e-Cigarette/Vaping Use: Never Used Second Hand Smoke Exposure: Yes service: No Current occupational status: disabled 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) Hearing needs: No Vision needs: No Questionnaire Thrive Questionnaire Date Thrive assessed: 03/16/23 SCOTT-7 AMB Questionnaire SCOTT-7 Date SCOTT - 7 assessed: 03/16/23 Source: Developed by Drs. Rex Sy, Barb Tucker, Dominic Gamino and colleagues, with an educational rojelio from [employer]. Review of Systems Const Unobtainable due to mental status (ROS obtained primarily from patient's [id number] - patient is confused) Denies chills, Denies fever(s) and Denies headache(s) ENT Denies dysphagia, Denies dizziness, Denies headache(s), Denies neck pain, Denies odynophagia and Denies sore throat Card Denies chest pain, Denies palpitations and Denies dyspnea Resp Denies cough and Denies dyspnea GI Details: per [id number], he used to not eat much throughout the day and just drinks coffee and watches television but he has gotten better at this lately and is now eating whenever they give him something Reports abdominal pain (occasionally; not occurring as often as before), Denies constipation, Denies dysphagia, Reports fecal incontinence (wears adult diapers), Denies diarrhea, Denies nausea, Denies odynophagia and Denies vomiting Denies dysuria and Reports urinary incontinence Musc Reports arthralgias (right knee ) and Denies neck pain Skin/Breast Denies rash Neuro Denies behavioral changes, Reports confusion, Denies dizziness and Denies headache(s) Psych Denies behavioral changes and Reports confusion Endo Denies palpitations Physical exam (Primary Care) Vital Signs: Last Vital Signs Pulse 90 07/19/23 12:33 BP 88/60 L 07/19/23 12:33 Pulse Ox 98 07/19/23 12:33 Oxygen Delivery Method Room Air 07/19/23 12:33 BMI result Body Mass Index 14.6 Tobacco/Smoking Status: Tobacco use Status Tobacco use date assessed 03/16/23 07/19/23 12:34 Patient Tobacco Use Status Current everyday Tobacco 07/19/23 12:34 Tobacco use type Cigarette 07/19/23 12:34 e-Cigarette/Vaping Use Never Used 07/19/23 12:34 Thrive Assessment: Date of Thrive Assessment Date Thrive assessed 03/16/23 07/19/23 12:34 Const General: comfortable, no acute distress and confusion Orientation/consciousness: confusion HENMT Ears: TM's normal bilaterally and EAC's normal Throat: Yes posterior oropharynx normal and Yes tonsils normal (no TP congestion noted) Neck Neck: Yes no lymphadenopathy and Yes supple Thyroid: Thyroid normal Resp Auscultation: clear to auscultation bilaterally, no rales and no wheezes Cardio Rate: regular rate Rhythm: regular rhythm Heart sounds: no murmurs GI Palpation (GI): Soft to palpation, nontender and no guarding Auscultation: normal bowel sounds General: Yes no CVA tenderness Back/Spine/Pelvis Back: no CVA tenderness Thoracic/Lumbar Spine: No lumbar spinal tenderness Skin Rashes: no rashes Neuro General: confusion Gait exam (Neuro): Normal gait present Extrem Other: (+) multiple screws are prominently visible over the anteromedial aspect of the right knee; (+) minimal tenderness noted on exam; no swelling of the knee joint noted General: Yes no clubbing, cyanosis or edema Right lower extremity: knee Details: tenderness (mild); no swelling Assessment and Plan Assessment & Plan (1) Gastritis: Code(s): K29.70 - Gastritis, unspecified, without bleeding Qualifiers: Gastritis type: other gastritis Chronicity: chronic Gastritis bleeding: without bleeding Qualified Code(s): K29.50 - Unspecified chronic gastritis without bleeding Plan: Reinforced dietary restrictions Continue Carafate 10 ml Q HS Follow up with GI as scheduled (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 Qualifiers: Dementia behavioral disturbance: without behavioral disturbance Qualified Code(s): F10.27 - Alcohol dependence with alcohol-induced persisting dementia Plan: Head CT done in March 2021 came out grossly normal Patient used to drink alcohol heavily for years when he was younger but has reportedly quit a few years ago, per family He was seen by neurology over a year ago and was diagnosed with dementia and MCI and started on Donepezil - to continue on Donepezil 5 mg QD Follow up with neurology as scheduled (3) Mild cognitive impairment: Comment: (+) some memory loss Code(s): G31.84 - Mild cognitive impairment of uncertain or unknown etiology Plan: Continue Donepezil 5 mg QD Follow up with neurology as scheduled (4) Pure hypercholesterolemia: Code(s): E78.00 - Pure hypercholesterolemia, unspecified Plan: Reinforced low cholesterol diet Will have patient recheck his labs and fasting lipids in 4 months for follow up (5) Anemia: Code(s): D64.9 - Anemia, unspecified Qualifiers: Anemia type: unspecified type Qualified Code(s): D64.9 - Anemia, unspecified Plan: Have advised patient's [id number]-[id number] again that patient's H/H were very low on his labs done a few months ago, with H/H at 10.5/33.5 back in March 2023 - is likely due to dietary iron deficiency or multifactorial Will send him for repeat CBC as well as some other labs in 4 months for further evaluation of his anemia and for follow up (6) COPD (chronic obstructive pulmonary disease): Code(s): J44.9 - Chronic obstructive pulmonary disease, unspecified Qualifiers: COPD type: emphysema Emphysema type: other Qualified Code(s): J43.8 - Other emphysema Plan: Patient had biapical opacities initially seen on routine lung cancer screening CT PET scan done a few weeks ago revealed minimal to no tracer avidity involving the lung apices bilaterally; (+) persistent moderate to severe paraseptal emphysematous disease at both upper lobes - no findings concerning for malignancy He is now following up with [facility] and is reportedly doing well on his current inhalers, which include Anoro Ellipta 62.5-25 mcg 1 inhalation QD and Albuterol HFA 2 inhalations Q 6 hours PRN Pulmonary is planning to try getting patient to get PFTs done again for further evaluation (7) Osteoarthritis of both knees: Code(s): M17.0 - Bilateral primary osteoarthritis of knee Qualifiers: Osteoarthritis type: unspecified Qualified Code(s): M17.0 - Bilateral primary osteoarthritis of knee Plan: His knee pains were previously thought to be most likely due to the orthopedic hardware jutting out from his knee but his recent knee x-rays proved otherwise X-rays of the right knee done in December 2021 revealed no acutely displaced fractures and no subluxation. The orthopedic fixation plate along the tibial plateau/proximal tibia are without evidence of hardware failure. There is moderate tricompartmental degenerative osteoarthritis and small joint effusions Repeat x-rays done in December 2022 showed similar findings Left knee x-rays revealed (+) extensive deformities at the proximal third of the tibia and fibula from prior trauma but only (+) mild OA changes Follow up with orthopedics as scheduled Per request, Rx for a shower chair is printed out and provided to patient's [id number]-erk - advised that she can obtain this from any medical supply store with the Rx (8) History of hepatitis C: Comment: (s/p Tx with [facility]) Code(s): Z86.19 - Personal history of other infectious and parasitic diseases Plan: Hepatitis C viral load last checked a couple of years ago came out negligible Repeat hepatitis C viral load last year came back negligible Follow up with GI as scheduled (9) Anxiety: Code(s): F41.9 - Anxiety disorder, unspecified Plan: Continue Prazosin 1 mg QHS (10) Depression: Code(s): F32.A - Depression, unspecified Qualifiers: Depression Type: major depressive disorder Major depression recurrence: recurrent Active/Remission status: currently active Major depression episode severity: unspecified Qualified Code(s): F33.9 - Major depressive disorder, recurrent, unspecified Plan: Continue Quetiapine 50 mg Q HS - dose was reportedly recently lowered by psychiatry Follow up with psychiatry as scheduled (11) Smoker: Code(s): F17.200 - Nicotine dependence, unspecified, uncomplicated Plan: He has tried and appears to have failed nicotine patches and they have not even helped patient cut back on his smoking Counseling on smoking cessation is impractical due to patient's altered mental status Plan Follow up in 4 months Orders: Orders Lipid Panel 4 Months E78.00 - Pure hypercholesterolemia, unspecified Hemoglobin A1c 4 Months E11.9 - Type 2 diabetes mellitus without complications Complete Blood Count Auto Diff 4 Months D64.9 - Anemia, unspecified Comprehensive [place]. Panel Fast 4 Months E78.00 - Pure hypercholesterolemia, unspecified TSH reflex Free T4 4 Months E78.00 - Pure hypercholesterolemia, unspecified UA CC w/rflx Micro + Cult 4 Months R30.0 - Dysuria Vitamin B12 and Folate 4 Months E53.8 - Deficiency of other specified B group vitamins Vitamin D 25-OH Total 4 Months E55.9 - Vitamin D deficiency, unspecified IRON PROFILE 4 Months D50.9 - Iron deficiency anemia, unspecified Medications: New [SHOWER CHAIR] As directed 1 ea 0RF F03.90 - Unspecified dementia, unspecified severity, without behavioral disturbance, psychotic disturbance, mood disturbance, and anxiety, M17.0 - Bilateral primary osteoarthritis of knee Coding Level of Care Code Est Pt Level 4 (60655) Diagnoses Other chronic gastritis without hemorrhage K29.50 Gastritis type: other gastritis Chronicity: chronic Gastritis bleeding: without bleeding 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 Dementia behavioral disturbance: without behavioral disturbance Mild cognitive impairment G31.84 Pure hypercholesterolemia E78.00 Anemia, unspecified type D64.9 Anemia type: unspecified type Other emphysema J43.8 COPD type: emphysema Emphysema type: other Osteoarthritis of both knees, unspecified osteoarthritis type M17.0 Osteoarthritis type: unspecified History of hepatitis C Z86.19 Anxiety F41.9 Episode of recurrent major depressive disorder, unspecified depression episode severity F33.9 Depression Type: major depressive disorder Major depression recurrence: recurrent Active/Remission status: currently active Major depression episode severity: unspecified Smoker F17.200
[2023-07-19 12:33] VITALS: BP 88/60; PULSE 90; O2SAT 98; BMI 14.6
== END 2023-07-19 13:02 | disposition home or self-care (01) ==
PROVIDERS: PCP Internal Medicine; Visit Provider Internal Medicine
DX: K29.50 Unspecified chronic gastritis without bleeding (principal); F10.27 Alcohol dependence with alcohol-induced persisting dementia; J43.8 Other emphysema; F33.9 Major depressive disorder, recurrent, unspecified; G31.84 Mild cognitive impairment of uncertain or unknown etiology; E78.00 Pure hypercholesterolemia, unspecified; D64.9 Anemia, unspecified; M17.0 Bilateral primary osteoarthritis of knee; Z86.19 Personal history of other infectious and parasitic diseases; F41.9 Anxiety disorder, unspecified; F17.200 Nicotine dependence, unspecified, uncomplicated
CPT/HCPCS: 99214

== ENCOUNTER 2023-11-03 10:55 | Outpatient (REF) | payer OTHER, SELFPAY ==
[2023-11-03 11:12] LABS: MANUAL DIFF FLAG NO
[2023-11-03 11:34] LABS: Basophils Absolute Auto 0.1 X10*3/uL (0.0-0.2); Basophils Percent Auto 0.8 % (0-2); Eosinophils Absolute Auto 0.4 X10*3/uL (0.0-0.4); Eosinophils Percent Auto 5.4 % (0-4); Hematocrit 35.3 % (42.0-52.0); Hemoglobin 11.3 g/dl (14.0-18.0); Imm Gran Abs Auto 0.02 X10*3/uL (0.00-0.03); Imm Gran Pct Auto 0.3 % (0.0-0.4); Lymphocytes Absolute Auto 2.4 X10*3/uL (1.2-4.9); Lymphocytes Percent Auto 30.5 % (20-40); Mean Corpuscular Hemoglobin 32.3 pg (27.0-33.0); Mean Corpuscular Volume 100.9 fL (80.0-98.0); Monocytes Absolute Auto 0.5 X10*3/uL (0.1-1.2); Monocytes Percent Auto 6.3 % (2-11); Neutrophils Absolute Auto 4.5 x10*3/uL (2.0-8.3); Neutrophils Percent Auto 56.7 % (45-73); Platelet Count 290 X10*3/uL (160-400)
[2023-11-03 11:39] LABS: Appearance Urine Clear; Color Urine Yellow; Glucose Urine UA Negative (Negative); Leukocyte Esterase Urine Moderate (2+) (Negative); Nitrite Urine Negative (Negative); PH 7.5 (5.0-9.0); Specific Gravity - Urine 1.025 (1.005-1.025); UMIC TRIGGER UACC YES; Urine Blood Negative (Negative); Urine Ketones Negative (Negative); Urine Protein Trace mg/dL (Neg-Trace)
[2023-11-03 11:40] LABS: Estimated Average Glucose 97 mg/dL
[2023-11-03 11:55] LABS: Bacteria Urine None Seen (None Seen); Hyaline Casts Urine 0-2 /LPF (0-2); RBC Urine 0-2 /HPF (0-2); Squamous Epithelial Cell Urine 0-2 /HPF (0-2); UACC Culture Trigger YES; WBC Urine 21-50 /HPF (0-5)
[2023-11-03 12:23] LABS: Alanine Aminotransferase 8 U/L (0-40); Alkaline Phosphatase 76 U/L (39-117); Anion Gap 12 (12-20); Aspartate Amino Transferase 18 U/L (5-37); Bilirubin Total 0.3 mg/dL (0.0-1.0); Blood Urea Nitrogen 17 mg/dL (9-16); Calcium 9.7 mg/dL (8.4-10.2); Carbon Dioxide 28 mmol/L (22-29); Chloride 105 mmol/L (96-108); Cholesterol 157 mg/dL (<200); Estimated Glomerular Filt Rate > 60; Glucose Fasting 101 mg/dL (60-99); HDL Cholesterol 43 mg/dL (>40); Iron 45 mcg/dL (45-160); LDL Cholesterol Calculated 100 mg/dL (<100); Percent Iron Saturation 20 % (15-50); Potassium 4.2 mmol/L (3.3-5.1); Sodium 141 mmol/L (135-145); TSH reflex Free T4 0.84 uIU/mL (0.32-4.0); Total Iron Binding Capacity 220 mcg/dL (228-428); Total Protein 7.7 g/dL (6.5-8.0); Triglycerides 72 mg/dL (<150); Unsaturated Iron Binding 175 ug/dL; Vitamin D 25-OH Total 37.4 ng/mL (>30)
[2023-11-03 12:37] LABS: Folate 12.8 ng/mL (> or = 4.0); Vitamin B12 571 pg/mL (200-900)
== END 2023-11-03 10:56 | disposition home or self-care (01) ==
LOC: HO.LAB 10:55
PROVIDERS: PCP Internal Medicine; Visit Provider Internal Medicine
DX: E78.00 Pure hypercholesterolemia, unspecified (principal); E53.8 Deficiency of other specified B group vitamins; E55.9 Vitamin D deficiency, unspecified; D50.9 Iron deficiency anemia, unspecified; E11.9 Type 2 diabetes mellitus without complications; D64.9 Anemia, unspecified; R30.0 Dysuria
CPT/HCPCS: 36415; 80053; 80061; 81001; 82306; 82607; 82746; 83036; 83540; 84443; 85025; 87086

== ENCOUNTER 2023-11-24 11:30 | Outpatient (AMB) | payer OTHER, SELFPAY ==
[2023-11-24 11:41] VITALS: BP 100/84; PULSE 78; O2SAT 97; BMI 15.2
--- NOTE | 2023-11-24 11:41 | A.OFFPC_ITS ---
Vital Signs 11/24/23 11:41 Height 5 ft 8 in Weight 100 lb BMI 15.2 BP 100/84 Blood Pressure Location Lt brachial Position Sitting Pulse 78 Pulse Source Pulse Oximeter Pulse Oximetry (%) 97 Oxygen Delivery Method Room Air Intake Visit Reasons: dementia, anemia, COPD Building Wrecker Required: No Accompanied by: Self / Same As Patient Allergies No Known Allergies [No Known Allergies*] Allergy (Verified 11/24/23 12:17) Medication List - Last Reconciled 11/24/23 by Deion Shafer MD albuterol sulfate 90 mcg/actuation (Ventolin HFA) 2 puffs inhalation Q4-6H PRN donepezil 5 mg PO DAILY food supplemt, lactose-reduced (Ensure oral liquid) 1 ea PO .TID with meals pantoprazole 40 mg PO DAILY prazosin 1 mg PO BEDTIME quetiapine 50 mg PO BEDTIME [SHOWER CHAIR As directed] sucralfate 10 mL PO BEDTIME umeclidinium-vilanterol 62.5-25 mcg/actuation (Anoro Ellipta) 1 inh inhalation DAILY 30 days Tobacco use date assessed: 11/24/23 Fall risk assessment: No Falls in past year Last assessed Fall Risk: 11/24/23 Dental Screening Dental Screen Date: 11/24/23 Did you have a dental visit in the last 12 months?: No Did you have a dental problem in the last 6 months where you did not have access to dental care?: No Was dental information given to patient?: No HPI dementia, anemia, COPD HPI Details Patient comes in today for his follow up visit - is accompanied as usual by his [id number] today, who provides most of his information as patient is unable to reliably provide them due to his dementia Patient still lives at home with family and his [id number] states that someone is with him all the time (27/09) to help keep watch him Patient states that he feels okay He denies any headaches or dizziness Denies any chest pains, no increased SOB No nausea/vomiting, no abdominal pain No change in bowel habits noted He had his follow up labs done a couple of weeks ago They are also requesting for an Rx for small-sized pull ups as his current medium-sized ones are too big for him; also needs Rx for disposable wipes as well as Rx for a bed rail as his current one broke off recently when he slid out of bed and slipped partially through it [facility] Medical History (Updated 11/24/23 @ 12:19 by Deion Shafer MD) Osteoarthritis of both knees Gastritis Tubular adenoma Nicotine dependence, cigarettes, uncomplicated Abdominal pain Depression Anxiety History of hepatitis C Pure hypercholesterolemia Surgical History History of surgery on lower extremity History of shoulder surgery History of colonoscopy History of esophagogastroduodenoscopy (EGD) History of cataract surgery Family History Father Medical history unknown Mother Diabetes Maternal Grandmother Lung cancer Maternal Uncle Colon cancer CVD (cardiovascular disease) Other Substance abuse Social History Housing: Apartment Alcohol intake: former Patient Tobacco Use Status: Current everyday Tobacco user Tobacco use type: Cigarette Cigarettes Per Day: 12 Years Smoked: (onset 13yo, 1ppd x 54yrs, 50pyh) e-Cigarette/Vaping Use: Never Used Second Hand Smoke Exposure: Yes service: No Current occupational status: disabled 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) Hearing needs: No Vision needs: No Questionnaire PHQ-9 Over the last 2 weeks, how often have you been bothered by any of the following problems? 1. Little interest or pleasure in doing things: not at all 2. Feeling down, depressed, or hopeless: several days 3. Trouble falling or staying asleep, or sleeping too much: several days 4. Feeling tired or having little energy: not at all 5. Poor appetite or overeating: not at all 6. Feeling bad about yourself - or that you are a failure or have let yourself or your family down: not at all 7. Trouble concentrating on things, such as reading the newspaper or watching television: not at all 8. Moving or speaking so slowly that other people could have noticed. Or the opposite - being so fidgety or restless that you have been moving around a lot more than usual: not at all 9. Thoughts that you would be better off or of hurting yourself in some way: not at all Total score: 2 Depression Screening Interpretation: Negative Depression Screening Done: Yes 45206 - PHQ-9 Billing: Yes Source: Developed by Drs. Rex Sy, Barb Tucker, Dominic Gamino and colleagues, with an educational rojelio from [employer]. Thrive Questionnaire Date Thrive assessed: 11/24/23 I am a: Patient What is your living situation today?: I have a steady place to live Within the past 12 months, did the food you bought not last and you didn't have the money to get more?: Never true Within the past 12 months, did you worry whether your food would run out before you got money to buy more?: Never true Do you have trouble paying for medicines?: No Do you have trouble getting transportation to medical appointments?: No Do you have trouble paying your heating and electricity bill?: No Do you have trouble taking care of your child, family member or friend?: No Do you have trouble with day-to-day activities such as bathing, preparing meals, shopping, managing finances, etc.?: No Are you currently unemployed and looking for a job?: No Are you interested in more education?: No Please select the resources that you would like help with: None Currently or been in a relationship where the following occur: No concerns reported THRIVE Score: 0 AUDIT C Alcohol Use Questionnaire (AUDIT-C) 1. How often do you have a drink containing alcohol?: Never 2. How many drinks containing alcohol do you have on a typical day when you are drinking?: 1 or 2 3. How often do you have six or more drinks on one occasion?: Never Total Score: 0 Score Reviewed/Action Taken: Yes SCOTT-7 AMB Questionnaire SCOTT-7 Date SCOTT - 7 assessed: 11/24/23 Feeling nervous, anxious, or on edge: 0 = Not at all Not being able to stop or control worryin = Not at all Worrying too much about different things: 0 = Not at all Trouble relaxin = Not at all Being so restless that it is hard to sit still: 0 = Not at all Becoming easily annoyed or irritable: 0 = Not at all Feeling afraid as if something awful might happen: 0 = Not at all Total SCOTT-7 score (0-4 normal; 5-9 mild; 10-14 moderate; 15-21 severe): 0 Source: Developed by Drs. Rex Sy, Barb Tucker, Dominic cristina nd colleagues, with an educational rojelio from [employer]. Review of Systems Const Unobtainable due to mental status (ROS obtained primarily from patient's [id number] - patient is confused) Denies chills, Denies difficulty sleeping, Denies fever(s), Denies headache(s) and Denies poor appetite ENT Denies dysphagia, Denies dizziness, Denies headache(s), Denies neck pain, Denies odynophagia and Denies sore throat Card Denies chest pain, Denies palpitations and Denies dyspnea Resp Denies cough and Denies dyspnea GI Details: per [id number]-[id number], he used to not eat much throughout the day and just drinks coffee and watches television but he has gotten better at this lately and is now eating whenever they give him something Denies abdominal pain, Denies constipation, Denies dysphagia, Reports fecal incontinence (wears adult diapers), Denies diarrhea, Denies nausea, Denies odynophagia and Denies vomiting Denies dysuria and Reports urinary incontinence Musc Reports arthralgias (right knee, at times) and Denies neck pain Skin/Breast Denies rash Neuro Denies behavioral changes, Reports confusion, Denies dizziness and Denies headache(s) Psych Denies behavioral changes and Reports confusion Endo Denies palpitations Physical exam (Primary Care) Vital Signs: Last Vital Signs Pulse 78 11/24/23 11:41 BP 100/84 11/24/23 11:41 Pulse Ox 97 11/24/23 11:41 Oxygen Delivery Method Room Air 11/24/23 11:41 BMI result Body Mass Index 15.2 Tobacco/Smoking Status: Tobacco use Status Tobacco use date assessed 11/24/23 11/24/23 11:47 Patient Tobacco Use Status Current everyday Tobacco 11/24/23 11:47 Tobacco use type Cigarette 11/24/23 11:47 e-Cigarette/Vaping Use Never Used 11/24/23 11:47 PHQ-9: PHQ-9 Score PHQ-9: Total score 2 11/24/23 17:51 Depression Screening Interpretation: Negative Thrive Assessment: Date of Thrive Assessment Date Thrive assessed 11/24/23 11/24/23 11:47 Currently or been in a relationship where the following occur: No concerns reported Const General: confusion Orientation/consciousness: confusion HENMT Ears: TM's normal bilaterally and EAC's normal Throat: Yes posterior oropharynx normal and Yes tonsils normal (no TP congestion noted) Neck Neck: Yes no lymphadenopathy and Yes supple Thyroid: Thyroid normal Resp Auscultation: clear to auscultation bilaterally, no rales and no wheezes Cardio Rate: regular rate Rhythm: regular rhythm Heart sounds: no murmurs GI Palpation (GI): Soft to palpation, nontender and no guarding Auscultation: normal bowel sounds General: Yes no CVA tenderness Back/Spine/Pelvis Back: no CVA tenderness Thoracic/Lumbar Spine: No lumbar spinal tenderness Skin Rashes: no rashes Neuro General: confusion Gait exam (Neuro): Normal gait present Extrem Other: (+) multiple screws are prominently visible over the anteromedial aspect of the right knee; (+) minimal tenderness noted on exam; no swelling of the knee joint noted General: Yes no clubbing, cyanosis or edema Right lower extremity: knee Details: tenderness (mild); no swelling Results Reviewed Results Reviewed: Laboratory Tests 11/03/23 11/03/23 11:06 11:11 WBC 8.0 Hgb 11.3 L Hct 35.3 L Plt Count 290 Sodium 141 Potassium 4.2 Creatinine 0.97 Estimated GFR > 60 Fasting Glucose 101 H Hemoglobin A1c % 5.0 Calcium 9.7 AST 18 ALT 8 Triglycerides 72 Cholesterol 157 LDL Cholesterol, Calc 100 H HDL Cholesterol 43 Vitamin B12 571 25-OH Vitamin D Total 37.4 TSH 0.84 Ur Specific [place] 1.025 Urine Protein Trace Urine Glucose (UA) Negative Urine Blood Negative Urine Nitrite Negative Ur Leukocyte Esterase Moderate (2+) H Assessment and Plan Assessment & Plan (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 Qualifiers: Dementia behavioral disturbance: without behavioral disturbance Qualified Code(s): F10.27 - Alcohol dependence with alcohol-induced persisting dementia Plan: Head CT done in March 2021 came out grossly normal Patient used to drink alcohol heavily for years when he was younger but has reportedly quit a few years ago, per family He was seen by neurology over a year ago and was diagnosed with dementia and MCI and started on Donepezil - to continue on Donepezil 5 mg QD Follow up with neurology as scheduled (2) Mild cognitive impairment: Comment: (+) some memory loss Code(s): G31.84 - Mild cognitive impairment of uncertain or unknown etiology Plan: Continue Donepezil 5 mg QD Follow up with neurology as scheduled Per request, Rx for adult pull-ups, disposable wipes and bed rail provided to patient's family (3) Gastritis: Code(s): K29.70 - Gastritis, unspecified, without bleeding Qualifiers: Chronicity: chronic Gastritis bleeding: without bleeding Gastritis type: other gastritis Qualified Code(s): K29.50 - Unspecified chronic gastritis without bleeding Plan: Reinforced dietary restrictions Continue Carafate 10 ml Q HS and Pantoprazole 40 mg QD Follow up with GI as scheduled (4) Pure hypercholesterolemia: Code(s): E78.00 - Pure hypercholesterolemia, unspecified Plan: Results of his labs done a couple of weeks ago reviewed and discussed with patient - his cholesterol level is currently normal Reinforced low cholesterol diet (5) Anemia: Code(s): D64.9 - Anemia, unspecified Qualifiers: Anemia type: unspecified type Qualified Code(s): D64.9 - Anemia, unspecified Plan: Patient's H/H were still slightly low at 11.3/35.3 on his recent labs - is likely multifactorial His iron and B12 levels were okay Will continue to monitor his CBC regularly (6) COPD (chronic obstructive pulmonary disease): Code(s): J44.9 - Chronic obstructive pulmonary disease, unspecified Qualifiers: COPD type: emphysema Emphysema type: other Qualified Code(s): J43.8 - Other emphysema Plan: Patient had biapical opacities initially seen on routine lung cancer screening CT PET scan done a few months ago revealed minimal to no tracer avidity involving the lung apices bilaterally; (+) persistent moderate to severe paraseptal emphysematous disease at both upper lobes - no findings concerning for malignancy Continue Anoro Ellipta 62.5-25 mcg 1 inhalation QD and Albuterol HFA 2 inhalations Q 6 hours PRN Follow up with pulmonary as scheduled (7) Osteoarthritis of both knees: Code(s): M17.0 - Bilateral primary osteoarthritis of knee Qualifiers: Osteoarthritis type: unspecified Qualified Code(s): M17.0 - Bilateral primary osteoarthritis of knee Plan: X-rays of the right knee done in December 2021 revealed no acutely displaced fractures and no subluxation. The orthopedic fixation plate along the tibial plateau/proximal tibia are without evidence of hardware failure. There is moderate tricompartmental degenerative osteoarthritis and small joint effusions Left knee x-rays revealed (+) extensive deformities at the proximal third of the tibia and fibula from prior trauma but only (+) mild OA changes Repeat x-rays done in December 2022 showed similar findings Follow up with orthopedics as scheduled (8) History of hepatitis C: Comment: (s/p Tx with [facility]) Code(s): Z86.19 - Personal history of other infectious and parasitic diseases Plan: Hepatitis C viral load last checked a couple of years ago came out negligible Repeat hepatitis C viral load last year came back negligible Follow up with GI as scheduled (9) Anxiety: Code(s): F41.9 - Anxiety disorder, unspecified Plan: Continue Prazosin 1 mg QHS (10) Depression: Code(s): F32.A - Depression, unspecified Qualifiers: Active/Remission status: currently active Depression Type: major depressive disorder Major depression episode severity: unspecified Major depression recurrence: recurrent Qualified Code(s): F33.9 - Major depressive disorder, recurrent, unspecified Plan: Continue Quetiapine 50 mg Q HS - dose was reportedly recently lowered by psychiatry Follow up with psychiatry as scheduled (11) Smoker: Code(s): F17.200 - Nicotine dependence, unspecified, uncomplicated Plan: He has tried and appears to have failed nicotine patches and they have not even helped patient cut back on his smoking Counseling on smoking cessation is impractical due to patient's altered mental status Plan Follow up in 4 months Medications: New [ADULT PULL UPS (small)] As directed 100 ea 12RF F10.27 - Alcohol dependence with alcohol-induced persisting dementia, R32 - Unspecified urinary incontinence [BED RAIL] As directed 1 ea 0RF prevent falls F10.27 - Alcohol dependence with alcohol-induced persisting dementia, M17.0 - Bilateral primary osteoarthritis of knee [DISPOSABLE GLOVES (medium)] As directed 100 ea 12RF R32 - Unspecified urinary incontinence Coding Level of Care Code Est Pt Level 4 (43683) Diagnoses 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 Dementia behavioral disturbance: without behavioral disturbance Mild cognitive impairment G31.84 Other chronic gastritis without hemorrhage K29.50 Chronicity: chronic Gastritis bleeding: without bleeding Gastritis type: other gastritis Pure hypercholesterolemia E78.00 Anemia, unspecified type D64.9 Anemia type: unspecified type Other emphysema J43.8 COPD type: emphysema Emphysema type: other Osteoarthritis of both knees, unspecified osteoarthritis type M17.0 Osteoarthritis type: unspecified History of hepatitis C Z86.19 Anxiety F41.9 Episode of recurrent major depressive disorder, unspecified depression episode severity F33.9 Active/Remission status: currently active Depression Type: major depressive disorder Major depression episode severity: unspecified Major depression recurrence: recurrent Smoker F17.200
== END 2023-11-24 12:30 | disposition home or self-care (01) ==
PROVIDERS: PCP Internal Medicine; Visit Provider Internal Medicine
DX: J43.8 Other emphysema (principal); F10.27 Alcohol dependence with alcohol-induced persisting dementia; F33.9 Major depressive disorder, recurrent, unspecified; G31.84 Mild cognitive impairment of uncertain or unknown etiology; K29.50 Unspecified chronic gastritis without bleeding; E78.00 Pure hypercholesterolemia, unspecified; D64.9 Anemia, unspecified; M17.0 Bilateral primary osteoarthritis of knee; Z86.19 Personal history of other infectious and parasitic diseases; F41.9 Anxiety disorder, unspecified; F17.200 Nicotine dependence, unspecified, uncomplicated

== ENCOUNTER → 2023-11-24 11:30 | Outpatient (BNVA) | payer OTHER, SELFPAY | PROVIDERS: PCP Internal Medicine; Visit Provider Internal Medicine | DX: F10.27 Alcohol dependence with alcohol-induced persisting dementia (principal); G31.84 Mild cognitive impairment of uncertain or unknown etiology; K29.50 Unspecified chronic gastritis without bleeding; E78.00 Pure hypercholesterolemia, unspecified; D64.9 Anemia, unspecified; J43.8 Other emphysema; M17.0 Bilateral primary osteoarthritis of knee; F41.9 Anxiety disorder, unspecified; F33.9 Major depressive disorder, recurrent, unspecified; F17.200 Nicotine dependence, unspecified, uncomplicated; Z71.6 Tobacco abuse counseling | CPT/HCPCS: 99212 ==

== ENCOUNTER 2023-11-29 08:41 | Outpatient (REF) | payer OTHER, SELFPAY ==
--- NOTE | ~2023-11-29 | CT_ITS ---
EXAMINATION: CT LOW-DOSE SCREENING CHEST WITHOUT CONTRAST CLINICAL INFORMATION: Nicotine dependence, cigarettes, uncomplicated. The patient is a current smoker with a 55 pack-year history of smoking. COMPARISON: CT chest 12/07/2022 and 07/23/2022. TECHNIQUE: Multidetector volumetric CT imaging of the chest is performed on a Siemens SOMATOM Definition scanner without contrast using low dose technique. Additional 2D coronal and sagittal reformatted images and axial 3D maximum intensity projection (MIP) images are generated on the CT workstation. This CT examination was performed using dose optimization techniques as appropriate, variously including the following: *Automated exposure control *Adjustment of mA and/or kV according to patient size (this includes techniques or standardized protocols for targeted exams where dose is matched to indication/reason for exam; i.e. extremities or head) *Use of iterative reconstruction technique TOTAL EXAM DLP: 24 mGy-cm. CTDIvol: 1.27 mGy. FINDINGS: PULMONARY NODULES: The pleural-parenchymal scarring (see below) has a nodular appearance which for the most part is unchanged. There are calcified pulmonary nodules seen, the largest measuring 1.3 cm in the superior segment of the left lower lobe, unchanged. There is a new mixed density partly solid opacity seen measuring 9 mm in the right lower lobe (4:23). Some other smaller opacities are unchanged. There is no other new or increasing sized nodule seen. LUNGS: Lungs bilaterally symmetrically expanded. Marked emphysematous changes are present with extensive pleural-parenchymal nodular scarring most prominent at the apices, right greater than left. Emphysema is present with bullous formation most prominent at the apices. No effusion or pneumothorax. Central airways patent. MEDIASTINUM: No mediastinal, hilar or axillary adenopathy or free fluid collection. CORONARY ARTERY CALCIFICATION: Present. THYROID GLAND: Unremarkable to the extent seen. CARDIOVASCULAR STRUCTURES: Aortic and heart size normal. No pericardial effusion. CHEST WALL/AXILLA: Unremarkable. UPPER ABDOMEN: Included portions of the solid organs in the upper abdomen unremarkable on noncontrast imaging. OSSEOUS STRUCTURES: No suspicious focal findings. CT/CT lung screening IMPRESSION: There is a new mixed density partly solid opacity seen measuring 9 mm in the right lower lobe which must be considered suspicious. There are some new tree-in-bud opacities and marked stable pleural-parenchymal scarring. ASSESSMENT: 1. Lung-RADS Category 4A: Suspicious findings. N/A 2. Lung-RADS Category S: Negative. There are no clinically significant or potentially clinically significant findings not related to the lungs requiring urgent additional evaluation. RECOMMENDATION: A 3-month follow up low-dose lung CT scan is recommended. An order for CT LUNG CANCER SCREENING SHORT INTERVAL FOLLOWUP ([id number]) can be placed. Electronically signed by: Ivan Conn MD 01/20/2024 01:57 PM [facility]
== END 2023-11-29 08:42 | disposition home or self-care (01) ==
LOC: HO.CT 08:41
PROVIDERS: PCP Internal Medicine; Visit Provider Physician Assistant Medical
DX: Z12.2 Encounter for screening for malignant neoplasm of respiratory organs (principal); F17.210 Nicotine dependence, cigarettes, uncomplicated
CPT/HCPCS: 71271

== ENCOUNTER 2023-12-22 10:59 | Outpatient (AMB) | payer OTHER, SELFPAY ==
--- NOTE | 2023-12-22 11:01 | A.OFFVIS_ITS ---
Vital Signs 12/22/23 11:08 Height 5 ft 8 in Weight 104 lb 11.513 oz BMI 15.9 BP 108/58 L Blood Pressure Location Rt brachial Position Sitting Pulse 69 Pulse Source Monitor Pulse Oximetry (%) 98 Oxygen Delivery Method Room Air Intake Visit Reasons: COPD Allergies No Known Allergies [No Known Allergies*] Allergy (Verified 12/22/23 11:12) HPI HPI COPD: Details: 68-year-old gentleman, active 40+ pack-year smoker trying to quit followed for underlying COPD of unclear severity. Patient was not able to attend his pulmonary function test. He continues on Anoro and albuterol MDI with reasonable control of his symptoms. He denies recent exacerbations. His follow-up lung cancer screening CT chest is pending. [facility] Medical History (Updated 11/24/23 @ 12:19 by Deion Shafer MD) Osteoarthritis of both knees Gastritis Tubular adenoma Nicotine dependence, cigarettes, uncomplicated Abdominal pain Depression Anxiety History of hepatitis C Pure hypercholesterolemia Surgical History History of surgery on lower extremity History of shoulder surgery History of colonoscopy History of esophagogastroduodenoscopy (EGD) History of cataract surgery Family History Father Medical history unknown Mother Diabetes Maternal Grandmother Lung cancer Maternal Uncle Colon cancer CVD (cardiovascular disease) Other Substance abuse Social History Housing: Apartment Alcohol intake: former Patient Tobacco Use Status: Current everyday Tobacco user Tobacco use type: Cigarette Cigarettes Per Day: 12 Years Smoked: (onset 13yo, 1ppd x 54yrs, 50pyh) e-Cigarette/Vaping Use: Never Used Second Hand Smoke Exposure: Yes service: No Current occupational status: disabled 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) Hearing needs: No Vision needs: No Review of Systems Const Denies daytime sleepiness, Denies excessive sweating, Denies fatigue, Denies fever(s), Denies lethargy, Denies malaise, Denies night sweats, Denies snoring and Denies weight loss Eyes Denies blurry vision and Denies itchy eyes ENT Denies nasal congestion, Denies post nasal drip, Denies sinus pain, Denies sinus pressure and Denies other ( Thrush) Card Denies chest pain, Denies pedal edema, Denies dyspnea, Denies orthopnea and De nies paroxysmal nocturnal dyspnea Resp Denies cough, Denies hemoptysis, Denies excessive phlegm production, Denies dyspnea, Denies snoring and Denies wheezing GI Denies abdominal pain and Denies heartburn Musc Denies myalgias, Denies arthralgias and Denies joint swelling Skin/Breast Denies rash Neuro Denies memory loss and Denies seizure-like activity Psych Denies abnormal sleep pattern, Denies anxiety and Denies memory loss Endo Denies excessive sweating, Denies fatigue and Denies heat intolerance Carl/Lymph Denies easy bruising Aller/Immun Denies itchy eyes, Denies seasonal rhinorrhea and Denies wheezing Physical Exam Vital Signs: Last Vital Signs Pulse 69 12/22/23 11:08 BP 108/58 L 12/22/23 11:08 Pulse Ox 98 12/22/23 11:08 Oxygen Delivery Method Room Air 12/22/23 11:08 BMI result Body Mass Index 15.9 Const General: no acute distress and alert Nutritional Appearance: not obese Orientation/consciousness: Other orientation findings ( oriented) HEENT Head: Yes atraumatic Eyes General: appearance normal, both eyes and all related structures Sclerae: sclerae normal EOM: EOMs intact bilaterally Neck Neck: Yes supple Lymphatic: no lymphadenopathy noted Resp Effort & Inspection: normal respiratory effort and no use of accessory muscles Auscultation: clear to auscultation bilaterally Cardio Rate: regular rate Rhythm: regular rhythm Heart sounds: no gallops, no murmurs and no rubs Skin General skin exam: other ( warm) Extrem General: No clubbing, No cyanosis and No edema Assessment & Plan Assessment & Plan (1) COPD (chronic obstructive pulmonary disease): Code(s): J44.9 - Chronic obstructive pulmonary disease, unspecified Category: Medical Qualifiers: COPD type: emphysema Emphysema type: other Qualified Code(s): J43.8 - Other emphysema Plan: Well controlled on current regimen of Anoro and albuterol MDI. Continue current regimen. (2) Nicotine dependence, cigarettes, uncomplicated: Comment: (current smoker, onset 13yo, 1ppd x 54yrs, 50pyh) Code(s): F17.210 - Nicotine dependence, cigarettes, uncomplicated Category: Medical Plan: Follow-up CT chest is pending. Coding Level of Care Code Est Pt Level 4 (08557) Diagnoses Other emphysema J43.8 COPD type: emphysema Emphysema type: other Nicotine dependence, cigarettes, uncomplicated F17.210
[2023-12-22 11:08] VITALS: BP 108/58; PULSE 69; O2SAT 98; BMI 15.9
== END 2023-12-22 11:30 | disposition home or self-care (01) ==
PROVIDERS: PCP Internal Medicine; Visit Provider Internal Medicine Pulmonary Disease
DX: J43.8 Other emphysema (principal); F17.210 Nicotine dependence, cigarettes, uncomplicated
CPT/HCPCS: 99214

== ENCOUNTER → 2023-12-22 10:59 | Outpatient (BNVA) | payer OTHER, SELFPAY | PROVIDERS: PCP Internal Medicine; Visit Provider Internal Medicine Pulmonary Disease | DX: J43.8 Other emphysema (principal); F17.210 Nicotine dependence, cigarettes, uncomplicated | CPT/HCPCS: 99212 ==

== ENCOUNTER 2024-06-20 10:27 | Outpatient (REF) | payer OTHER, SELFPAY ==
--- NOTE | ~2024-06-20 | CT_ITS ---
CLINICAL HISTORY: F17.210 - Nicotine dependence, cigarettes, uncomplicated --- Additional Notes or Sp ecial Instructions: new mixed density partly solid opacity 9 mm in RLL - plans repeat LDCT 3m Examination CT lung cancer screening History Screening examination performed for pulmonary nodules Technique Axial CT images of the chest using low-dose technique. Effective radiation dose total: 33.5 mGy-cm, CTDIvol 0.8 mGy. Referring provider counseled the patient on shared decision-making for LDCT screening. Additional counseling was provided on smoking cessation. Comparison: CT/ND/SR - CT LUNG SCREENING - 11/29/23 09:[address]/ND/SR - CT LUNG SCREEN FOLLOW UP - 12/07/22 11:[address]/ND/SR - CT LUNG SCREENING - 07/23/22 15:39 EDT Findings: Lungs: Substantial paraseptal emphysema measuring up to 3.7 cm. Moderate centrilobular emphysema. Mild bronchial wall thickening. Mild amount of secretions in the airways. There is honeycombing at the lung bases which is most prominent in the right middle lobe, mildly increased since 07/23/22. Nodular scarring in the upper lobes and in the superior segments of the lower lobes, stable. Calcified granuloma. Right lower lobe 1.1 cm ground-glass opacity, previously measuring 1.0 cm 07/23/22 and 1.1 cm since 12/07/22 (series 5 images 215 through 232). A solid component measuring up to 3 mm could be considered, similar to the prior study and greater than 12/07/22 and 12/23/22. Aside from nodular scarring in the upper lobes and superior segments of the lower lobes, other solid nodules measure up to 5 mm, stable (series 6, image 116, right middle lobe) Coronary artery calcifications: Mild Other: None Limited upper abdomen: Unremarkable Impression: LungRADS 3 - Probably benign: Recommend low dose screening Chest CT in 6 months. ##L3# Category 1: Normal; continue annual screening Category 2: Benign appearance or behavior, continue annual screening Category 3: Probably benign, [address] recommended Category 4A: Suspicious, [address] recommended; may consider PET/CT Category 4B: Suspicious, Additional diagnostics and/or tissue sampling recommended Category 4X: Suspicious, Additional diagnostics and/or tissue sampling recommended Category 0: Recalls (incomplete screen due to Incomplete coverage, Noise, Respiratory motion, Expiration, Obscured by acute abnormality) This document has been electronically signed by: Harper Herrmann MD on 06/21/2024 14:22:46
--- OUTSIDE RECORDS SUMMARY | 2024-06-20 12:15 | XMS_ITS | Clinical Summary ---
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 Name Role Phone Unavailable Primary Care Provider Unavailabl e Social History Tobacco Use Types Packs/Day Years Used Date Smoking Tobacco: Never Assessed Sex and Gender Information Value Date Recorded Sex Assigned at Not on file Legal Sex Male 4:57 PM EST Gender Identity Not on file Sexual Orientation Not on file Plan of Treatment Health Maintenance Due Date Last Done Comments DTaP,Tdap,and Td Vaccines (1 - Tdap) 1973 Pneumococcal Vaccine: 50+ Ye ars (1 of 1 - PCV) 2004 Zoster Vaccines (1 of 2) 2004 Abdominal Aortic Aneurysm (A AA) Screen 04/05/2023 Cholesterol Screening (Lipid Panel) 04/05/2023 Colorectal Cancer Screening: Colonoscopy 04/05/2023 Depression Screening 04/05/2023 Falls Risk Assessment 04/05/2023 Hepatitis C Screening 04/05/2023 Social Influencers of Health Screening 04/05/2023 COVID-19 Vaccine ( - 2023-2 5 season) 2023 Influenza Vaccine (Season Ended) 2024 RSV Immunization Adult Patie nts (1 - 1-dose 75+ series) 2029 HIB Vaccines Aged Out No longer eligi ble based on patient's age to complete this topic HPV Vaccines Aged Out No longer eligi ble based on patient's age to complete this topic Hepatitis A Vaccines Aged Out No long er eligible based on patient's age to complete this topic Hepatitis B Vaccines Aged Out No long er eligible based on patient's age to complete this topic IPV Vaccines Aged Out No longer eligi ble based on patient's age to complete this topic MMR Vaccines Aged Out No longer eligi ble based on patient's age to complete this topic Meningococcal ACWY Vaccine Aged Out N o longer eligible based on patient's age to complete this topic Meningococcal B Vaccine Aged Out No l onger eligible based on patient's age to complete this topic RSV Immunization Patients Un barb 20 months Aged Out No longer eligible b ased on patient's age to complete this topic Varicella Vaccines Aged Out No longer eligible based on patient's age to complete this topic
== END 2024-06-20 10:28 | disposition home or self-care (01) ==
LOC: HO.CT 10:27
PROVIDERS: PCP Internal Medicine; Visit Provider Physician Assistant Medical
DX: R91.1 Solitary pulmonary nodule (principal); F17.210 Nicotine dependence, cigarettes, uncomplicated
CPT/HCPCS: 71250

== ENCOUNTER → 2024-06-20 10:33 | Outpatient (BNV) | payer OTHER, SELFPAY | PROVIDERS: PCP Internal Medicine; Visit Provider Radiology Diagnostic Radiology | DX: F17.210 Nicotine dependence, cigarettes, uncomplicated (principal) | CPT/HCPCS: 71250 ==

== ENCOUNTER 2024-06-28 13:03 | Outpatient (AMB) | payer OTHER, SELFPAY ==
--- NOTE | 2024-06-28 13:05 | MHC.OFFVIS ---
Vital Signs 06/28/24 13:06 Height 5 ft 8 in Weight 105 lb BMI 16.0 BP 84/47 L Blood Pressure Location Rt brachial Position Sitting Pulse 72 Pulse Source Doppler Pulse Oximetry (%) 98 Oxygen Delivery Method Room Air Intake Visit Reasons: copd Allergies No Known Allergies [No Known Allergies*] Allergy (Verified 12/22/23 11:12) HPI HPI copd: Details: 69-year-old gentleman, active 40+ pack-year smoker trying to quit followed for underlying COPD of unclear severity. Patient was not able to attend his pulmonary function test. He continues on Anoro and albuterol MDI with reasonable control of his symptoms. He denies recent exacerbations. His follow-up lung cancer screening CT chest shows minimal increase in underlying nodules. [facility], [facility] Medical History (Updated 11/24/23 @ 12:19 by Deion Shafer MD) Osteoarthritis of both knees Gastritis Tubular adenoma Nicotine dependence, cigarettes, uncomplicated Abdominal pain Depression Anxiety History of hepatitis C Pure hypercholesterolemia Surgical History (Updated 01/26/24 @ 16:10 by Salina Isbell PA-C) History of surgery on lower extremity History of shoulder surgery History of colonoscopy History of esophagogastroduodenoscopy (EGD) History of cataract surgery Family History Father Medical history unknown Mother Diabetes Maternal Grandmother Lung cancer Maternal Uncle Colon cancer CVD (cardiovascular disease) Other Substance abuse Social History Housing: Apartment Alcohol intake: former Patient Tobacco Use Status: Current everyday Tobacco user Tobacco use type: Cigarette Cigarettes Per Day: 12 Years Smoked: (onset 13yo, 1ppd x 54yrs, 50pyh) e-Cigarette/Vaping Use: Never Used Second Hand Smoke Exposure: Yes service: No Current occupational status: disabled 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) Hearing needs: No Vision needs: No Review of Systems Const Denies daytime sleepiness, Denies excessive sweating, Denies fatigue, Denies fever(s), Denies lethargy, Denies malaise, Denies night sweats, Denies snoring and Denies weight loss Eyes Denies blurry vision and Denies itchy eyes ENT Denies nasal congestion, Denies post nasal drip, Denies sinus pain, Denies sinus pressure and Denies other ( Thrush) Card Denies chest pain, Denies pedal edema, Denies dyspnea, Denies orthopnea and Denies paroxysmal nocturnal dyspnea Resp Denies cough, Denies hemoptysis, Denies excessive phlegm production, Denies dyspnea, Denies snoring and Denies wheezing GI Denies abdominal pain and Denies heartburn Musc Denies myalgias, Denies arthralgias and Denies joint swelling Skin/Breast Denies rash Neuro Denies memory loss and Denies seizure-like activity Psych Denies abnormal sleep pattern, Denies anxiety and Denies memory loss Endo Denies excessive sweating, Denies fatigue and Denies heat intolerance Carl/Lymph Denies easy bruising Aller/Immun Denies itchy eyes, Denies seasonal rhinorrhea and Denies wheezing Physical Exam Vital Signs: Last Vital Signs Pulse 72 06/28/24 13:06 BP 84/47 L 06/28/24 13:06 Pulse Ox 98 06/28/24 13:06 Oxygen Delivery Method Room Air 06/28/24 13:06 BMI result Body Mass Index 16.0 Const General: no acute distress and alert Nutritional Appearance: not obese Orientation/consciousness: Other orientation findings ( oriented) HEENT Head: Yes atraumatic Eyes General: appearance normal, both eyes and all related structures Sclerae: sclerae normal EOM: EOMs intact bilaterally Neck Neck: Yes supple Lymphatic: no lymphadenopathy noted Resp Effort & Inspection: normal respiratory effort and no use of accessory muscles Auscultation: clear to auscultation bilaterally Cardio Rate: regular rate Rhythm: regular rhythm Heart sounds: no gallops, no murmurs and no rubs Skin General skin exam: other ( warm) Extrem General: No clubbing, No cyanosis and No edema Assessment & Plan Assessment & Plan (1) COPD (chronic obstructive pulmonary disease): Code(s): J44.9 - Chronic obstructive pulmonary disease, unspecified Category: Medical Qualifiers: COPD type: emphysema Emphysema type: other Qualified Code(s): J43.8 - Other emphysema Plan: Reasonable control on current regimen of Anoro and albuterol MDI. Continue current regimen. (2) Nicotine dependence, cigarettes, uncomplicated: Comment: (current smoker, onset 13yo, 1ppd x 54yrs, 50pyh) Code(s): F17.210 - Nicotine dependence, cigarettes, uncomplicated Category: Medical Plan: Results of lung cancer screening CT chest reviewed, minimal increasing underlying nodules, will repeat CT chest in 6 months. Coding Level of Care Code Est Pt Level 4 (37694) Diagnoses Other emphysema J43.8 COPD type: emphysema Emphysema type: other Nicotine dependence, cigarettes, uncomplicated F17.210
[2024-06-28 13:06] VITALS: BP 84/47; PULSE 72; O2SAT 98; BMI 16.0
--- OUTSIDE RECORDS SUMMARY | 2024-06-28 15:21 | XMS_ITS | Clinical Summary ---
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
== END 2024-06-28 13:18 | disposition home or self-care (01) ==
LOC: HO.HPS 13:04
PROVIDERS: PCP Internal Medicine; Visit Provider Internal Medicine Pulmonary Disease
DX: J43.8 Other emphysema (principal); F17.210 Nicotine dependence, cigarettes, uncomplicated
CPT/HCPCS: 99214

== ENCOUNTER → 2024-06-28 13:03 | Outpatient (BNVA) | payer OTHER, SELFPAY | PROVIDERS: PCP Internal Medicine; Visit Provider Internal Medicine Pulmonary Disease | DX: J43.8 Other emphysema (principal); F17.210 Nicotine dependence, cigarettes, uncomplicated | CPT/HCPCS: 99212 ==

== ENCOUNTER 2024-06-29 13:54 | Outpatient (AMB) | payer OTHER, SELFPAY ==
[2024-06-29 13:59] VITALS: BP 92/64; PULSE 76; O2SAT 97; BMI 16.0
--- NOTE | 2024-06-29 13:59 | A.OFFPC_ITS ---
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: No Accompanied by: Other Relationship Allergies No Known Allergies [No Known Allergies*] Allergy (Verified 06/29/24 14:31) Medication List - Last Reconciled 06/29/24 by Deion Shafer MD [ADULT PULL UPS (small) As directed] albuterol sulfate 90 mcg/actuation (Ventolin HFA) 2 puffs inhalation Q4-6H PRN [BED RAIL As directed] [DISPOSABLE GLOVES (medium) As directed] donepezil 5 mg PO DAILY food supplemt, lactose-reduced (Ensure oral liquid) 1 ea PO .TID with meals pantoprazole 40 mg PO DAILY prazosin 1 mg PO BEDTIME quetiapine 50 mg PO BEDTIME [SHOWER CHAIR As directed] [Shower head- hand held As directed] sucralfate 10 mL PO BEDTIME umeclidinium-vilanterol 62.5-25 mcg/actuation (Anoro Ellipta) 1 inh inhalation DAILY 30 days Tobacco use date assessed: 06/29/24 Fall risk assessment: No Falls in past year Last assessed Fall Risk: 06/29/24 Dental Screening Dental Screen Date: 06/29/24 Did you have a dental visit in the last 12 months?: No Did you have a dental problem in the last 6 months where you did not have access to dental care?: No Was dental information given to patient?: No HPI 4 Month F/U HPI Details Patient comes in today for his follow up visit - is accompanied as usual by his nudisc-nz-pdp today, who provides most of his information as patient is unable to do so due to his dementia Patient still lives at home with family and his tnffjt-ai-[id number] states that someone is with him all the time (27/09) to keep watch over him Patient states that he feels okay He denies any headaches or dizziness Denies any chest pains, no increased SOB No nausea/vomiting, no abdominal pain No change in bowel habits noted [facility] Medical History (Updated 07/01/24 @ 05:35 by Deion Shafer MD) Smoker Osteoarthritis of both knees Gastritis Tubular adenoma Nicotine dependence, cigarettes, uncomplicated Abdominal pain Depression Anxiety History of hepatitis C Pure hypercholesterolemia Surgical History History of surgery on lower extremity History of shoulder surgery History of colonoscopy History of esophagogastroduodenoscopy (EGD) History of cataract surgery Family History Father Medical history unknown Mother Diabetes Maternal Grandmother Lung cancer Maternal Uncle Colon cancer CVD (cardiovascular disease) Other Substance abuse Social History Housing: Apartment Alcohol intake: former Patient Tobacco Use Status: Current everyday Tobacco user Tobacco use type: Cigarette Cigarettes Per Day: 12 Years Smoked: (onset 13yo, 1ppd x 54yrs, 50pyh) e-Cigarette/Vaping Use: Never Used Second Hand Smoke Exposure: Yes service: No Current occupational status: disabled 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) Hearing needs: No Vision needs: No Questionnaire PHQ-9 Over the last 2 weeks, how often have you been bothered by any of the following problems? 1. Little interest or pleasure in doing things: not at all 2. Feeling down, depressed, or hopeless: several days 3. Trouble falling or staying asleep, or sleeping too much: several days 4. Feeling tired or having little energy: more than half the days 5. Poor appetite or overeating: several days 6. Feeling bad about yourself - or that you are a failure or have let yourself or your family down: not at all 7. Trouble concentrating on things, such as reading the newspaper or watching television: not at all 8. Moving or speaking so slowly that other people could have noticed. Or the opposite - being so fidgety or restless that you have been moving around a lot more than usual: several days 9. Thoughts that you would be better off or of hurting yourself in some way: not at all Total score: 6 Depression Screening Interpretation: Positive Depression Screening Follow-up: Existing condition and In treatment Depression Screening Done: Yes 74062 - PHQ-9 Billing: Yes Source: Developed by Drs. Barb Narvaez Kurt Kroenke and colleagues, with an educational rojelio from [employer]. Thrive Questionnaire Date Thrive assessed: 06/29/24 I am a: Parent/Caregiver What is your living situation today?: I have a steady place to live Within the past 12 months, did the food you bought not last and you didn't have the money to get more?: Never true Within the past 12 months, did you worry whether your food would run out before you got money to buy more?: Never true Do you have trouble paying for medicines?: No Do you have trouble getting transportation to medical appointments?: No Do you have trouble paying your heating and electricity bill?: I choose not to answer this question Do you have trouble taking care of your child, family member or friend?: No Do you have trouble with day-to-day activities such as bathing, preparing meals, shopping, managing finances, etc.?: Yes Are you currently unemployed and looking for a job?: I choose not to answer this question Are you interested in more education?: I choose not to answer this question Please select the resources that you would like help with: None Currently or been in a relationship where the following occur: No concerns reported THRIVE Score: 0 AUDIT C Alcohol Use Questionnaire (AUDIT-C) 1. How often do you have a drink containing alcohol?: Never 3. How often do you have six or more drinks on one occasion?: Never Total Score: 0 Score Reviewed/Action Taken: Yes SCOTT-7 AMB Questionnaire SCOTT-7 Date SCOTT - 7 assessed: 06/29/24 Feeling nervous, anxious, or on edge: 0 = Not at all Not being able to stop or control worryin = Not at all Worrying too much about different things: 0 = Not at all Trouble relaxin = Several days Being so restless that it is hard to sit still: 0 = Not at all Becoming easily annoyed or irritable: 0 = Not at all Feeling afraid as if something awful might happen: 0 = Not at all Total SCOTT-7 score (0-4 normal; 5-9 mild; 10-14 moderate; 15-21 severe): 1 Source: Developed by Barb Sheets Kurt Kroenke and colleagues, with an educational rojelio from [employer]. Review of Systems Const Unobtainable due to mental status (ROS obtained primarily from patient's uzqbrd-[id number] - patient is confused) Denies chills, Denies difficulty sleeping, Denies fever(s), Denies headache(s) and Denies poor appetite ENT Denies dysphagia, Denies dizziness, Denies headache(s), Denies neck pain, Denies odynophagia and Denies sore throat Card Denies chest pain, Denies palpitations and Denies dyspnea Resp Denies chest congestion, Denies cough and Denies dyspnea GI Details: per tcqfth-jr-bdh, he used to not eat much throughout the day and just drinks coffee and watches television but he has gotten better at this lately and is now eating whenever they give him something Denies abdominal pain, Denies constipation, Denies dysphagia, Reports fecal incontinence (wears adult diapers), Denies diarrhea, Denies nausea, Denies odynophagia and Denies vomiting Denies dysuria and Reports urinary incontinence Musc Reports arthralgias (right knee, at times) and Denies neck pain Skin/Breast Denies rash Neuro Denies behavioral changes, Reports confusion, Denies dizziness and Denies headache(s) Psych Denies behavioral changes and Reports confusion Endo Denies palpitations Physical exam (Primary Care) Vital Signs: Last Vital Signs Pulse 76 06/29/24 13:59 BP 92/64 06/29/24 13:59 Pulse Ox 97 06/29/24 13:59 Oxygen Delivery Method Room Air 06/29/24 13:59 BMI result Body Mass Index 16.0 Tobacco/Smoking Status: Tobacco use Status Tobacco use date assessed 06/29/24 06/29/24 14:05 Patient Tobacco Use Status Current everyday Tobacco 06/29/24 14:05 Tobacco use type Cigarette 06/29/24 14:05 e-Cigarette/Vaping Use Never Used 06/29/24 14:05 PHQ-9: PHQ-9 Score PHQ-9: Total score 6 06/29/24 14:33 Depression Screening Interpretation: Positive Depression Screening Follow-up: Existing condition and In treatment Thrive Assessment: Date of Thrive Assessment Date Thrive assessed 06/29/24 06/29/24 14:05 Currently or been in a relationship where the following occur: No concerns reported Const General: confusion Orientation/consciousness: confusion HENMT Ears: TM's normal bilaterally and EAC's normal Throat: Yes posterior oropharynx normal and Yes tonsils normal (no TP congestion noted) Neck Neck: Yes no lymphadenopathy and Yes supple Thyroid: Thyroid normal Resp Auscultation: clear to auscultation bilaterally, no rales and no wheezes Cardio Rate: regular rate Rhythm: regular rhythm Heart sounds: no murmurs GI Palpation (GI): Soft to palpation and nontender Auscultation: normal bowel sounds General: Yes no CVA tenderness Back/Spine/Pelvis Back: no CVA tenderness Thoracic/Lumbar Spine: No lumbar spinal tenderness Skin Rashes: no rashes Neuro General: confusion Gait exam (Neuro): Normal gait present Extrem Other: (+) multiple screws are prominently visible over the anteromedial aspect of the right knee; (+) minimal tenderness noted on exam; no swelling of the knee joint noted General: Yes no clubbing, cyanosis or edema Right lower extremity: knee Details: tenderness (mild); no swelling Coding Level of Care Code Est Pt Level 4 (77019) Diagnoses 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 Dementia behavioral disturbance: without behavioral disturbance Mild cognitive impairment G31.84 Other chronic gastritis without hemorrhage K29.50 Gastritis type: other gastritis Chronicity: chronic Gastritis bleeding: without bleeding Pure hypercholesterolemia E78.00 Anemia, unspecified type D64.9 Anemia type: unspecified type Other emphysema J43.8 COPD type: emphysema Emphysema type: other Osteoarthritis of both knees, unspecified osteoarthritis type M17.0 Osteoarthritis type: unspecified History of hepatitis C Z86.19 Anxiety F41.9 Episode of recurrent major depressive disorder, unspecified depression episode severity F33.9 Depression Type: major depressive disorder Major depression recurrence: recurrent Active/Remission status: currently active Major depression episode severity: unspecified Smoker F17.200 Additional Codes PHQ-9 - 69789 - PHQ-9 Billing: Yes ([id number]) Assessment & Plan Assessment & Plan (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 Category: Medical Qualifiers: Dementia behavioral disturbance: without behavioral disturbance Qualified Code(s): F10.27 - Alcohol dependence with alcohol-induced persisting dementia Plan: Head CT done in March 2021 came out grossly normal Patient used to drink alcohol heavily for years when he was younger but has reportedly quit a few years ago, per family He was seen by neurology over a year ago and was diagnosed with dementia and MCI and started on Donepezil - to continue on Donepezil 5 mg QD Follow up with neurology as scheduled (2) Mild cognitive impairment: Comment: (+) some memory loss Code(s): G31.84 - Mild cognitive impairment of uncertain or unknown etiology Category: Medical Plan: Continue Donepezil 5 mg QD Follow up with neurology as scheduled (3) Gastritis: Code(s): K29.70 - Gastritis, unspecified, without bleeding Category: Medical Qualifiers: Gastritis type: other gastritis Chronicity: chronic Gastritis bleeding: without bleeding Qualified Code(s): K29.50 - Unspecified chronic gastritis without bleeding Plan: Reinforced dietary restrictions Continue Carafate 10 ml Q HS and Pantoprazole 40 mg QD Follow up with GI as scheduled (4) Pure hypercholesterolemia: Code(s): E78.00 - Pure hypercholesterolemia, unspecified Category: Medical Plan: Reinforced low cholesterol diet Will recheck his labs and fasting lipids in 4 months for follow-up (5) Anemia: Code(s): D64.9 - Anemia, unspecified Category: Medical Qualifiers: Anemia type: unspecified type Qualified Code(s): D64.9 - Anemia, unspecified Plan: Patient's H/H were still slightly low at 11.3/35.3 when his labs were last checked in October 2023 - is likely multifactorial His iron and B12 levels were okay Will continue to monitor his CBC regularly (6) COPD (chronic obstructive pulmonary disease): Code(s): J44.9 - Chronic obstructive pulmonary disease, unspecified Category: Medical Qualifiers: COPD type: emphysema Emphysema type: other Qualified Code(s): J43.8 - Other emphysema Plan: Patient had biapical opacities initially seen on routine lung cancer screening CT PET scan revealed minimal to no tracer avidity involving the lung apices bilaterally; (+) persistent moderate to severe paraseptal emphysematous disease at both upper lobes - no findings concerning for malignancy Continue Anoro Ellipta 62.5-25 mcg 1 inhalation QD and Albuterol HFA 2 inhalations Q 6 hours PRN Follow up with pulmonary as scheduled (7) Osteoarthritis of both knees: Code(s): M17.0 - Bilateral primary osteoarthritis of knee Category: Medical Qualifiers: Osteoarthritis type: unspecified Qualified Code(s): M17.0 - Bilateral primary osteoarthritis of knee Plan: X-rays of the right knee done in December 2021 revealed no acutely displaced fractures and no subluxation. The orthopedic fixation plate along the tibial plateau/proximal tibia are without evidence of hardware failure. There is moderate tricompartmental degenerative osteoarthritis and small joint effusions Left knee x-rays revealed (+) extensive deformities at the proximal third of the tibia and fibula from prior trauma but only (+) mild OA changes Repeat x-rays done in December 2022 showed similar findings Follow up with orthopedics as scheduled (8) History of hepatitis C: Comment: (s/p Tx with [facility]) Code(s): Z86.19 - Personal history of other infectious and parasitic diseases Category: Medical Plan: Hepatitis C viral load last checked a couple of years ago came out negligible Repeat hepatitis C viral load last year came back negligible Follow up with GI as scheduled (9) Anxiety: Code(s): F41.9 - Anxiety disorder, unspecified Category: Medical Plan: Continue Prazosin 1 mg Q HS (10) Depression: Code(s): F32.A - Depression, unspecified Category: Medical Qualifiers: Depression Type: major depressive disorder Major depression recurrence: recurrent Active/Remission status: currently active Major depression episode severity: unspecified Qualified Code(s): F33.9 - Major depressive disorder, recurrent, unspecified Plan: Continue Quetiapine 50 mg Q HS Follow up with psychiatry as scheduled (11) Smoker: Code(s): F17.200 - Nicotine dependence, unspecified, uncomplicated Category: Social Hx Plan: He has tried and appears to have failed nicotine patches and they have not even helped patient cut back on his smoking Counseling on smoking cessation is impractical due to patient's altered mental status Plan Follow up in 4 months Orders: Orders Lipid Panel 4 Months E78.00 - Pure hypercholesterolemia, unspecified UA CC w/rflx Micro + Cult 4 Months R30.0 - Dysuria Vitamin B12 and Folate 4 Months E53.8 - Deficiency of other specified B group vitamins Vitamin D 25-OH Total 4 Months E55.9 - Vitamin D deficiency, unspecified Hepatitis C Viral Load 4 Months Z86.19 - Personal history of other infectious and parasitic diseases Complete Blood Count Auto Diff 4 Months D64.9 - Anemia, unspecified Comprehensive [place]. Panel Fast 4 Months E78.00 - Pure hypercholesterolemia, unspecified TSH reflex Free T4 4 Months E78.00 - Pure hypercholesterolemia, unspecified
--- OUTSIDE RECORDS SUMMARY | 2024-06-29 14:38 | XMS_ITS | Clinical Summary ---
Author Organization [facility] ity Address [address] [place] [address] Care Team Providers Care Billing Control Clerk Name Role Phone Unavailable Primary Care Provider [...]
== END 2024-06-29 14:38 | disposition home or self-care (01) ==
LOC: HO.HMCH 13:55
PROVIDERS: PCP Internal Medicine; Visit Provider Internal Medicine
DX: G31.84 Mild cognitive impairment of uncertain or unknown etiology (principal); F10.27 Alcohol dependence with alcohol-induced persisting dementia; J43.8 Other emphysema; K29.50 Unspecified chronic gastritis without bleeding; E78.00 Pure hypercholesterolemia, unspecified; D64.9 Anemia, unspecified; M17.0 Bilateral primary osteoarthritis of knee; Z86.19 Personal history of other infectious and parasitic diseases; F41.9 Anxiety disorder, unspecified; F33.9 Major depressive disorder, recurrent, unspecified; F17.200 Nicotine dependence, unspecified, uncomplicated

== ENCOUNTER → 2024-06-29 13:54 | Outpatient (BNVA) | payer OTHER, SELFPAY | PROVIDERS: PCP Internal Medicine; Visit Provider Internal Medicine | DX: F10.27 Alcohol dependence with alcohol-induced persisting dementia (principal); F03.90 Unspecified dementia, unspecified severity, without behavioral disturbance, psychotic disturbance, mood disturbance, and anxiety; K29.50 Unspecified chronic gastritis without bleeding; E78.00 Pure hypercholesterolemia, unspecified; D64.9 Anemia, unspecified; J43.8 Other emphysema; M17.0 Bilateral primary osteoarthritis of knee; F41.9 Anxiety disorder, unspecified; F33.9 Major depressive disorder, recurrent, unspecified; F17.210 Nicotine dependence, cigarettes, uncomplicated; R30.0 Dysuria; E53.8 Deficiency of other specified B group vitamins; E55.9 Vitamin D deficiency, unspecified; Z86.19 Personal history of other infectious and parasitic diseases | CPT/HCPCS: 96127; 99212 ==

== ENCOUNTER 2024-10-17 09:11 | Outpatient (REF) | payer OTHER, SELFPAY ==
--- OUTSIDE RECORDS SUMMARY | 2024-10-17 09:33 | XMS_ITS | Patient Health Record ---
Author Organization [facility] Address [address] [place] [address] Care Team Providers Care Lead Loader Name Role Phone Deion Shafer MD Primary Care Provider UnaMarjorie Walker Unavailable [phone] Reason For Referral No Information Medications Medication SIG (Take, Route, Frequency, Duration) Notes Start Date End Date Status Mirtazapine 15 MG Oral; Duration: 30 Days Active Escitalopram Oxalate 10 MG Oral; Duration: 30 Days Active Prazosin HCl 1 MG Oral; Duration: 30 Days Active Orthopedic Extra Depth Shoes With Custom Heat Molded Multidensity Innersoles 1 Pair shoes with 3 Pair custom heat molded innersoles Wear Daily; Duration: 365 days 08/10/2024 Active QUEtiapine Fumarate 100 MG Oral; Duration: 30 Days Active Immunizations Vaccine Route Administration Date Status Comme nts Influenza Unknown 07/18/2024 Administered Pneumococcal Unknown 07/18/2024 Administered Social History Tobacco Use: Social History Observation Description Date Details (start date - stop date) Current Smoker NA - NA Tobacco use other than smoking: Question Answer Notes Are you an other tobacco user? No Tobacco Control (Standard) Question Answer Notes Tobacco use: Current smoker How many cigarettes a day do you smoke? 01-24 AUDIT-C (Standard) Question Answer Notes Did you have a drink containing alcohol in the p ast year? No Points 0 Interpretation Negative Problems Problem Type SNOMED Code ICD Code Onset Dates Problem Status W/U Status Risk Notes Problem Acquired hammer toe of right foot (3455218374146301) Other hammer toe(s) (acquired), right foot (M20.41) Active confirmed Problem Acquired hammer toe of left foot (6041627268692632) Other hammer toe(s) (acquired), left foot (M20.42) Active confirmed Problem Bilateral atherosclerosis of arteries of lower limbs (disorder) (98050783069880850 ) Atherosclerosis of [place] artery of both lower extremities, with unspecified presence of clinical manifestation (I70.203) Active confirmed Q7(A), Q8(2B), Q9(1B,2 C) Vital Signs Heart Rate 60 /min 08/10/2024 Blood pressure diastolic 62 mm Hg 08/10/2024 Height 5 ft 9 in in 08/10/2024 Blood pressure systolic 108 mm Hg 08/10/2024 Weight 105 lbs 08/10/2024 BMI 15.5 kg/m2 08/10/2024 Procedures Procedure Date Ordered Date Performed Result Body Sit e 55743-[id number] NAIL, 6 OR MORE 08/10/2024 N/A 74767-QAQP SKIN LESIONS, OVER 4 08/10/2024 N/A Encounters Encounter Location Date Provider Diagnosis [facility] [place] [address] [place] [id number] 08/10/2024 Marjorie Briggs Other hammer toe(s) (acquired), right foot M20.41 ; Other hammer toe(s) (acquired), left foot M20.42 ; Atherosclerosis of [place] artery of both lower extremities, with unspecified presence of clinical manifestation I70.203 ; Tinea unguium B35.1 ; Pain in right toe(s) M79.674 and Pain in left toe(s) M79.675 Assessments Encounter Date Diagnosis (ICD Code) Assessment Notes Treatment Notes Treatment Clinical Notes Section Notes 08/10/2024 Other hammer toe(s) (acquired), right foot (ICD-10 - M20.41) Patient Educated with: DIABETIC FOOT CARE INSTRUCTIONS. pdf (DIABETIC FOOT CARE INSTRUCTIONS. pdf) 08/10/2024 Other hammer toe(s) (acquired), left foot (ICD-10 - M20.42) 08/10/2024 Atherosclerosis of [place] artery of both lower extremities, with unspecified presence of clinical manifestation (ICD-10 - I70.203) Q7(A), Q8(2B), Q9(1B,2C) 08/10/2024 Tinea unguium (ICD-10 - B35.1) 08/10/2024 Pain in right toe(s) (ICD-10 - M79.674) 08/10/2024 Pain in left toe(s) (ICD-10 - M79.675) Plan Of Treatment Pending Test Test Name Order Date [id number] NAIL, 6 OR MORE 08/10/2024 [id number] SKIN LESIONS, OVER 4 08/11/19 25 Next Appt Details Provider Name:Marjorie Mckenzie boyd, 11/16/2024 11:00:00 AM, [address] [facility], [address], [place], [address], Insurance Providers Payer Name Payer Address Payer Phone Subscriber Number Group Number Insured Name Patient Relationship to Insured Coverage Start Date Coverage End Date [facility] [employer] Claims [address] [facility] [place] [phone] [id number] Michael Cage Self - patient is the insured Medical (General) History Medical History History ICD Code Anemia Angina Anxiety asthma Knee Pain Broken Left Shoulder Dementia Depression Psychiatric disorder Tuberculosis Measles Mumps Chicken pox Joint implants/screws in Right Leg Surgical History Surgery Date(Month/Year) shoulder surgery 1979 leg surgery 1979
--- OUTSIDE RECORDS SUMMARY | 2024-10-17 09:33 | XMS_ITS | Clinical Summary ---
Author Organization [facility] ity Address [address] [place] [address] Care Team Providers Care National Expansion Recruiter Name Role Phone Unavailable Primary Care Provider [...] Panel) 04/05/2023 Colorectal Cancer Screening: Colonoscopy 04/05/2023 Falls Risk Assessment 04/05/2023 Hepatitis C Screening 04/05/2023 Social Influencers of Health Screening 04/05/2023 COVID-19 Vaccine (1 - 2023-2 5 season) 2023 Depression Screening 03/07/2024 Influenza Vaccine (#1) 2024 RSV Immunization Adult Patie nts (1 [...]
[2024-10-17 09:34] LABS: MANUAL DIFF FLAG NO
[2024-10-17 09:47] LABS: Hematocrit 39.9 % (42.0-52.0); Hemoglobin 13.0 g/dl (14.0-18.0); Imm Gran Abs Auto 0.03 X10*3/uL (0.00-0.03); Imm Gran Pct Auto 0.3 % (0.0-0.4); Lymphocytes Absolute Auto 2.7 X10*3/uL (1.2-4.9); Mean Corpuscular HGB Conc 32.6 g/dl (31.0-36.0); Mean Corpuscular Hemoglobin 32.1 pg (27.0-33.0); Mean Corpuscular Volume 98.5 fL (80.0-98.0); NRBC Abs Auto 0.000 X10*3/uL (0.0-0.012); NRBC Pct Auto 0.0 /100WBC (0.0-0.2); Platelet Count 258 X10*3/uL (160-400); Red Blood Count 4.05 X10*6/uL (4.60-5.80); White Blood Count 8.8 X10*3/uL (4.8-10.8)
[2024-10-17 10:10] LABS: Appearance Urine Clear; Glucose Urine UA Negative (Negative); PH 6.5 (5.0-9.0); Specific Gravity - Urine 1.025 (1.005-1.025); UMIC TRIGGER UACC YES
[2024-10-17 10:42] LABS: Alanine Aminotransferase 10 U/L (0-40); Albumin Level 4.8 g/dL (3.5-5.0); Alkaline Phosphatase 82 U/L (39-117); Anion Gap 13 (12-20); Aspartate Amino Transferase 25 U/L (5-37); Blood Urea Nitrogen 21 mg/dL (9-16); Calcium 9.7 mg/dL (8.4-10.2); Carbon Dioxide 30 mmol/L (22-29); Chloride 103 mmol/L (96-108); Cholesterol 180 mg/dL (<200); Estimated Glomerular Filt Rate > 60; HDL Cholesterol 44 mg/dL (>40); Potassium 4.0 mmol/L (3.3-5.1); Sodium 142 mmol/L (135-145); Total Protein 8.1 g/dL (6.5-8.0); Triglycerides 98 mg/dL (<150)
[2024-10-17 11:02] LABS: Folate 7.2 ng/mL (> or = 4.0); Vitamin B12 686 pg/mL (200-900)
[2024-10-19 00:39] LABS: HCV Log PCR <1.18 NOT DETECTED Log IU/mL (NOT DETECTED); HepC Viral Load <15 NOT DETECTED IU/mL (NOT DETECTED)
== END 2024-10-17 09:12 | disposition home or self-care (01) ==
LOC: HO.LAB 09:11
PROVIDERS: PCP Internal Medicine; Visit Provider Internal Medicine
DX: E53.8 Deficiency of other specified B group vitamins (principal); E55.9 Vitamin D deficiency, unspecified; E78.00 Pure hypercholesterolemia, unspecified; R30.0 Dysuria; Z86.19 Personal history of other infectious and parasitic diseases
CPT/HCPCS: 36415; 80053; 80061; 81001; 81003; 82306; 82607; 82746; 84443; 85025; 87522

== ENCOUNTER 2024-10-31 12:19 | Outpatient (AMB) | payer OTHER, SELFPAY ==
[2024-10-31 12:32] VITALS: BP 102/60; PULSE 77; TEMP 36.2; O2SAT 98; BMI 14.1
--- NOTE | 2024-10-31 12:32 | A.OFFPC_ITS ---
Vital Signs 10/31/24 12:32 Height 5 ft 8 in Weight 93 lb 0.561 oz BMI 14.1 BP 102/60 Blood Pressure Location Rt brachial Position Sitting Pulse 77 Pulse Source Pulse Oximeter Temp 97.1 F Temp Source Temporal Artery Scan Pulse Oximetry (%) 98 Oxygen Delivery Method Room Air Intake Visit Reasons: Follow Up Accompanied by: sister in law Allergies No Known Allergies (No Known Allergies*) Allergy (Verified 10/31/24 12:54) Medication List - Last Reconciled 10/31/24 by Deion Shafer MD [ADULT PULL UPS (small) As directed] albuterol sulfate 90 mcg/actuation (Ventolin HFA) 2 puffs inhalation Q4-6H PRN [BED RAIL As directed] [DISPOSABLE GLOVES (medium) As directed] donepezil 5 mg PO DAILY food supplemt, lactose-reduced (Ensure oral liquid) 1 ea PO .TID with meals pantoprazole 40 mg PO DAILY prazosin 1 mg PO BEDTIME quetiapine 50 mg PO BEDTIME [SHOWER CHAIR As directed] [Shower head- hand held As directed] sucralfate 10 mL PO BEDTIME umeclidinium-vilanterol 62.5-25 mcg/actuation (Anoro Ellipta) 1 inh inhalation DAILY 30 days Tobacco use date assessed: 10/31/24 Fall risk assessment: No Falls in past year Last assessed Fall Risk: 10/31/24 Dental Screening Dental Screen Date: 10/31/24 Did you have a dental visit in the last 12 months?: No Did you have a dental problem in the last 6 months where you did not have access to dental care?: No Was dental information given to patient?: Patient declined HPI Follow Up HPI Details Patient comes in today for his follow up visit - is accompanied as usual by his rmdrdj-kv-mnp today, who provides most of his information as patient is unable to communicate appropriately due to his dementia Patient still lives at home with family and his ougopn-zr-new states that someone is with him all the time (27/09) to keep watch over him Patient states that he feels okay He denies any headaches or dizziness Denies any chest pains, no increased SOB No nausea/vomiting, no abdominal pain No change in bowel habits noted His ctpych-th-toy has requested to have his Glucerna supplements refilled but for the strawberry-flavored ones as she states that patient does not like the current vanilla-flavored ones that he is receiving and does not want to drink them He had his follow up labs done a couple of weeks ago - to discuss his results [facility] Medical History Smoker Osteoarthritis of both knees Gastritis Tubular adenoma Nicotine dependence, cigarettes, uncomplicated Abdominal pain Depression Anxiety History of hepatitis C Pure hypercholesterolemia Surgical History (Reviewed 10/31/24 @ 12:37 by Kathleen Fernando [facility]) History of surgery on lower extremity History of shoulder surgery History of colonoscopy History of esophagogastroduodenoscopy (EGD) History of cataract surgery Family History (Reviewed 10/31/24 @ 12:37 by Kathleen Fernando [facility]) Father Medical history unknown Mother Diabetes Maternal Grandmother Lung cancer Maternal Uncle Colon cancer CVD (cardiovascular disease) Other Substance abuse Social History (Reviewed 10/31/24 @ 12:37 by Kathleen Fernando [facility]) Housing: Apartment Alcohol intake: former Patient Tobacco Use Status: Current everyday Tobacco user Tobacco use type: Cigarette Cigarettes Per Day: 12 Years Smoked: (onset 13yo, 1ppd x 54yrs, 50pyh) e-Cigarette/Vaping Use: Never Used Second Hand Smoke Exposure: Yes service: No Current occupational status: disabled 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) Hearing needs: No Vision needs: No Questionnaire PHQ-9 Over the last 2 weeks, how often have you been bothered by any of the following problems? 1. Little interest or pleasure in doing things: not at all 2. Feeling down, depressed, or hopeless: several days 3. Trouble falling or staying asleep, or sleeping too much: several days 4. Feeling tired or having little energy: more than half the days 5. Poor appetite or overeating: several days 6. Feeling bad about yourself - or that you are a failure or have let yourself or your family down: not at all 7. Trouble concentrating on things, such as reading the newspaper or watching television: not at all 8. Moving or speaking so slowly that other people could have noticed. Or the opposite - being so fidgety or restless that you have been moving around a lot more than usual: several days 9. Thoughts that you would be better off or of hurting yourself in some way: not at all Total score: 6 Depression Screening Interpretation: Positive Depression Screening Follow-up: Existing condition and In treatment Depression Screening Done: Yes 53862 - PHQ-9 Billing: Yes Source: Developed by Drs. Rex Sy, Barb Tucker, Dominic Gamino and colleagues, with an educational rojelio from [employer]. Thrive Questionnaire Date Thrive assessed: 06/29/24 I am a: Parent/Caregiver What is your living situation today?: I have a steady place to live Within the past 12 months, did the food you bought not last and you didn't have the money to get more?: Never true Within the past 12 months, did you worry whether your food would run out before you got money to buy more?: Never true Do you have trouble paying for medicines?: No Do you have trouble getting transportation to medical appointments?: No Do you have trouble paying your heating and electricity bill?: I choose not to answer this question Do you have trouble taking care of your child, family member or friend?: No Do you have trouble with day-to-day activities such as bathing, preparing meals, shopping, managing finances, etc.?: Yes Are you currently unemployed and looking for a job?: I choose not to answer this question Are you interested in more education?: I choose not to answer this question Please select the resources that you would like help with: None Currently or been in a relationship where the following occur: No concerns reported THRIVE Score: 0 AUDIT C Alcohol Use Questionnaire (AUDIT-C) 1. How often do you have a drink containing alcohol?: Never 3. How often do you have six or more drinks on one occasion?: Never Total Score: 0 Score Reviewed/Action Taken: Yes SCOTT-7 AMB Questionnaire SCOTT-7 Date SCOTT - 7 assessed: 06/29/24 Feeling nervous, anxious, or on edge: 0 = Not at all Not being able to stop or control worryin = Not at all Worrying too much about different things: 0 = Not at all Trouble relaxin = Several days Being so restless that it is hard to sit still: 0 = Not at all Becoming easily annoyed or irritable: 0 = Not at all Feeling afraid as if something awful might happen: 0 = Not at all Total SCOTT-7 score (0-4 normal; 5-9 mild; 10-14 moderate; 15-21 severe): 1 Source: Developed by Drs. Rex Sy, Barb Tucker, Dominic Gamino and colleagues, with an educational rojelio from [employer]. Review of Systems Const Unobtainable due to mental status (ROS obtained primarily from patient's yahkpk-wj-qsg - patient is confused) Denies chills, Denies difficulty sleeping, Denies fever(s), Denies headache(s) and Denies poor appetite ENT Denies dysphagia, Denies dizziness, Denies headache(s), Denies neck pain, Denies odynophagia and Denies sore throat Card Denies chest pain, Denies palpitations and Denies dyspnea Resp Denies chest congestion, Denies cough and Denies dyspnea GI Details: per cckylp-aa-fbo, he used to not eat much throughout the day and just drinks coffee and watches television but he has gotten better at this lately and is now eating everything that they give him. He has been asking for and eating a lot of hamburgers lately, especially with his morning coffee Denies abdominal pain, Denies constipation, Denies dysphagia, Reports fecal incontinence (wears adult diapers), Denies diarrhea, Denies nausea, Denies odynophagia and Denies vomiting Denies difficulty urinating, Denies dysuria and Reports urinary incontinence Musc Denies back pain, Reports arthralgias (right knee, at times) and Denies neck pain Skin/Breast Denies rash Neuro Denies behavioral changes, Reports confusion, Denies dizziness and Denies headache(s) Psych Denies behavioral changes and Reports confusion Endo Denies palpitations Physical exam (Primary Care) Vital Signs: Last Vital Signs Temp 97.1 F 10/31/24 12:32 Pulse 77 10/31/24 12:32 BP 102/60 10/31/24 12:32 Pulse Ox 98 10/31/24 12:32 Oxygen Delivery Method Room Air 10/31/24 12:32 BMI result Body Mass Index 14.1 Tobacco/Smoking Status: Tobacco use Status Tobacco use date assessed 10/31/24 10/31/24 12:38 Patient Tobacco Use Status Current everyday Tobacco 10/31/24 12:38 Tobacco use type Cigarette 10/31/24 12:38 e-Cigarette/Vaping Use Never Used 10/31/24 12:38 PHQ-9: PHQ-9 Score PHQ-9: Total score 6 10/31/24 13:09 Depression Screening Interpretation: Positive Depression Screening Follow-up: Existing condition and In treatment Thrive Assessment: Date of Thrive Assessment Date Thrive assessed 06/29/24 10/31/24 12:38 Currently or been in a relationship where the following occur: No concerns reported Const General: no acute distress and confusion Orientation/consciousness: confusion HENMT Ears: TM's normal bilaterally and EAC's normal Throat: Yes posterior oropharynx normal and Yes tonsils normal (no TP congestion noted) Neck Neck: Yes no lymphadenopathy and Yes supple Thyroid: Thyroid normal Resp Auscultation: clear to auscultation bilaterally, no rales and no wheezes Cardio Rate: regular rate Rhythm: regular rhythm Heart sounds: no murmurs GI Palpation (GI): Soft to palpation and nontender Auscultation: normal bowel sounds General: Yes no CVA tenderness Back/Spine/Pelvis Back: no CVA tenderness Thoracic/Lumbar Spine: No lumbar spinal tenderness Skin Rashes: no rashes Neuro General: confusion Gait exam (Neuro): Normal gait present Extrem Other: (+) multiple screws are prominently visible over the anteromedial aspect of the right knee; (+) minimal tenderness noted on exam; no swelling of the knee joint noted General: Yes no clubbing, cyanosis or edema Right lower extremity: knee Details: tenderness (mild); no swelling Results Reviewed Results Reviewed: Laboratory Tests 10/17/24 09:32 WBC 8.8 Hgb 13.0 L Hct 39.9 L Plt Count 258 Sodium 142 Potassium 4.0 Creatinine 0.88 Estimated GFR > 60 Fasting Glucose 103 H Calcium 9.7 AST 25 ALT 10 Triglycerides 98 Cholesterol 180 LDL Cholesterol, Calc 117 H HDL Cholesterol 44 Vitamin B12 686 25-OH Vitamin D Total 32.7 TSH 1.48 Urine Protein 30 (1+) H Urine Glucose (UA) Negative Urine Blood Trace Urine Nitrite Negative Ur Leukocyte Esterase Trace H Hep C Viral Load <15 NOT DETECTED Hep C Viral Load Log <1.18 NOT DETECTED Coding Level of Care Code Est Pt Level 4 (11772) Diagnoses 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 Dementia behavioral disturbance: without behavioral disturbance Mild cognitive impairment G31.84 Other chronic gastritis without hemorrhage K29.50 Gastritis type: other gastritis Chronicity: chronic Gastritis bleeding: without bleeding Pure hypercholesterolemia E78.00 Anemia, unspecified type D64.9 Anemia type: unspecified type Other emphysema J43.8 COPD type: emphysema Emphysema type: other Osteoarthritis of both knees, unspecified osteoarthritis type M17.0 Osteoarthritis type: unspecified History of hepatitis C Z86.19 Anxiety F41.9 Episode of recurrent major depressive disorder, unspecified depression episode severity F33.9 Depression Type: major depressive disorder Major depression recurrence: recurrent Active/Remission status: currently active Major depression episode severity: unspecified Smoker F17.200 Additional Codes PHQ-9 - 63139 - PHQ-9 Billing: Yes ([id number]) Assessment & Plan Assessment & Plan (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 Category: Medical Qualifiers: Dementia behavioral disturbance: without behavioral disturbance Qualified Code(s): F10.27 - Alcohol dependence with alcohol-induced persisting dementia Plan: His head CT done in March 2021 came out grossly normal Patient used to drink alcohol heavily for years when he was younger but has reportedly quit a few years ago, per family He was diagnosed with dementia and MCI and started on Donepezil by neurology a couple of years ago - to continue on Donepezil 5 mg QD Follow up with neurology as scheduled (2) Mild cognitive impairment: Comment: (+) some memory loss Code(s): G31.84 - Mild cognitive impairment of uncertain or unknown etiology Category: Medical Plan: Continue Donepezil 5 mg QD Follow up with neurology as scheduled (3) Gastritis: Code(s): K29.70 - Gastritis, unspecified, without bleeding Category: Medical Qualifiers: Gastritis type: other gastritis Chronicity: chronic Gastritis bleeding: without bleeding Qualified Code(s): K29.50 - Unspecified chronic gastritis without bleeding Plan: Reinforced dietary restrictions Continue Pantoprazole 40 mg QD Follow up with GI as scheduled (4) Pure hypercholesterolemia: Code(s): E78.00 - Pure hypercholesterolemia, unspecified Category: Medical Plan: Results of his labs done a couple of weeks ago reviewed and discussed with patient's spaxol-qo-zah Reinforced low cholesterol diet Will recheck his labs and fasting lipids in 4 months for follow-up (5) Anemia: Code(s): D64.9 - Anemia, unspecified Category: Medical Qualifiers: Anemia type: unspecified type Qualified Code(s): D64.9 - Anemia, unspecified Plan: Patient's H/H were just slightly lower than normal at 13/39.9 on his labs done a couple of weeks ago His iron and B12 levels were okay Will continue to monitor his CBC regularly (6) COPD (chronic obstructive pulmonary disease): Code(s): J44.9 - Chronic obstructive pulmonary disease, unspecified Category: Medical Qualifiers: COPD type: emphysema Emphysema type: other Qualified Code(s): J43.8 - Other emphysema Plan: Patient had biapical opacities initially seen on routine lung cancer screening CT PET scan revealed minimal to no tracer avidity involving the lung apices bilaterally; (+) persistent moderate to severe paraseptal emphysematous disease at both upper lobes - no findings concerning for malignancy Continue Anoro Ellipta 62.5-25 mcg 1 inhalation QD and Albuterol HFA 2 inhalations Q 6 hours PRN Follow up with pulmonary as scheduled (7) Osteoarthritis of both knees: Code(s): M17.0 - Bilateral primary osteoarthritis of knee Category: Medical Qualifiers: Osteoarthritis type: unspecified Qualified Code(s): M17.0 - Bilateral p rimary osteoarthritis of knee Plan: X-rays of the right knee done in December 2021 revealed no acutely displaced fractures and no subluxation. The orthopedic fixation plate along the tibial plateau/proximal tibia are without evidence of hardware failure. There is moderate tricompartmental degenerative osteoarthritis and small joint effusions Left knee x-rays revealed (+) extensive deformities at the proximal third of the tibia and fibula from prior trauma but only (+) mild OA changes Repeat x-rays done in December 2022 showed similar findings Follow up with orthopedics as scheduled (8) History of hepatitis C: Comment: (s/p Tx with [facility]) Code(s): Z86.19 - Personal history of other infectious and parasitic diseases Category: Medical Plan: Hepatitis C viral load last checked a couple of years ago came out negligible Repeat hepatitis C viral load last year came back negligible Follow up with GI as scheduled (9) Anxiety: Code(s): F41.9 - Anxiety disorder, unspecified Category: Medical Plan: Continue Prazosin 1 mg Q HS (10) Depression: Code(s): F32.A - Depression, unspecified Category: Medical Qualifiers: Depression Type: major depressive disorder Major depression recurrence: recurrent Active/Remission status: currently active Major depression episode severity: unspecified Qualified Code(s): F33.9 - Major depressive disorder, recurrent, unspecified Plan: Continue Quetiapine 50 mg Q HS Follow up with psychiatry as scheduled (11) Smoker: Code(s): F17.200 - Nicotine dependence, unspecified, uncomplicated Category: Social Hx Plan: He has tried and appears to have failed nicotine patches and they have not even helped patient cut back on his smoking Counseling on smoking cessation is impractical due to patient's altered mental status Plan Follow up in 4 months Orders: Orders Complete Blood Count Auto Diff 4 Months D64.9 - Anemia, unspecified TSH reflex Free T4 4 Months E78.00 - Pure hypercholesterolemia, unspecified UA CC w/rflx Micro + Cult 4 Months R30.0 - Dysuria Vitamin B12 and Folate 4 Months E53.8 - Deficiency of other specified B group vitamins Comprehensive [place]. Panel Fast 4 Months E78.00 - Pure hypercholesterolemia, unspecified Lipid Panel 4 Months E78.00 - Pure hypercholesterolemia, unspecified Vitamin D 25-OH Total 4 Months E55.9 - Vitamin D deficiency, unspecified Medications: Changed From food supplemt, lactose-reduced (Ensure oral liquid) 1 ea PO .TID with meals 90 multiple units 11RF F03.90 - Unspecified dementia, unspecified severity, without behavioral disturbance, psychotic disturbance, mood disturbance, and anxiety, R62.7 - Adult failure to thrive, R63.6 - Underweight To food supplemt, lactose-reduced (Ensure oral liquid) STRAWBERRY FLAVOR PLEASE - patient has dementia and does not want to drink the vanilla-flavored ones 1 ea PO .TID with meals 90 multiple units 11RF F03.90 - Unspecified dementia, unspecified severity, without behavioral disturbance, psychotic disturbance, mood disturbance, and anxiety, R62.7 - Adult failure to thrive, R63.6 - Underweight
--- OUTSIDE RECORDS SUMMARY | 2024-10-31 12:57 | XMS_ITS | Patient Health Record ---
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 Plant Maintenance Engineer Name Role Phone Deion Shafer MD Primary Care Provider UnaMarjorie Walker Unavailable [phone] Reason For Referral No Information Medications Medication [...] Problem Acquired hammer toe of right foot ([id number]) Other hammer toe(s) (acquired), right foot (M20.41) Active confirmed Problem Acquired hammer toe of left foot ([id number]) Other hammer toe(s) (acquired), left foot (M20.42) Active confirmed Problem Bilateral atherosclerosis of arteries of lower limbs (disorder) ([id number] ) Atherosclerosis of [place] artery of both lower extremities, with unspecified [...] Ordered Date Performed Result Body Sit e 30723-KHLGSGK NAIL, 6 OR MORE 08/10/2024 N/A 76572-PAMK SKIN LESIONS, OVER 4 08/10/2024 N/A Encounters Encounter Location Date Provider Diagnosis [facility] [address] [place] [id number] 08/10/2024 Marjorie Briggs Other hammer toe(s) (acquired), right foot M20.41 ; Other hammer toe(s) (acquired), left foot M20.42 ; Atherosclerosis of [place] artery of both lower extremities, with unspecified [...] foot (ICD-10 - M20.42) 08/10/2024 Atherosclerosis of [place] artery of both lower extremities, with unspecified presence of clinical manifestation (ICD-10 - I70.203) Q7(A), Q8(2B), Q9(1B,2C) 08/10/2024 Tinea unguium (ICD-10 - B35.1) 08/10/2024 Pain in right toe(s) (ICD-10 - M79.674) 08/10/2024 Pain in left toe(s) (ICD-10 - M79.675) Plan Of Treatment Pending Test Test Name Order Date [id number] NAIL, 6 OR MORE 08/10/2024 71982-TWHL SKIN LESIONS, OVER 4 08/11/19 25 Next Appt Details Provider Name:Marjorie Mckenzie boyd, 11/16/2024 11:00:00 AM, [address] [facility], [address], [place], [address], Insurance Providers Payer Name Payer Address Payer Phone Subscriber Number Group Number Insured Name Patient Relationship to Insured Coverage Start Date Coverage End Date [facility] [employer] Claims [address] [facility] [place] [id number] [phone] [id number] Michael Cage Self - patient is the insured Medical (General) History Medical History History ICD Code Anemia Angina Anxiety asthma Knee Pain Broken Left Shoulder Dementia Depression Psychiatric disorder Tuberculosis Measles Mumps Chicken pox Joint implants/screws in Right Leg Surgical History Surgery Date(Month/Year) shoulder surgery 1979 leg surgery 1979
--- OUTSIDE RECORDS SUMMARY | 2024-10-31 12:57 | XMS_ITS | Clinical Summary ---
Author Organization [facility] ity Address [address] [place] [address] Care Team Providers Care Mobile Lounge Driver Or Operator Name Role Phone Unavailable Primary Care Provider [...]
== END 2024-10-31 13:02 | disposition home or self-care (01) ==
LOC: HO.HMCH 12:20
PROVIDERS: PCP Internal Medicine; Visit Provider Internal Medicine
DX: J43.8 Other emphysema (principal); F10.27 Alcohol dependence with alcohol-induced persisting dementia; G31.84 Mild cognitive impairment of uncertain or unknown etiology; K29.50 Unspecified chronic gastritis without bleeding; E78.00 Pure hypercholesterolemia, unspecified; D64.9 Anemia, unspecified; M17.0 Bilateral primary osteoarthritis of knee; Z86.19 Personal history of other infectious and parasitic diseases; F41.9 Anxiety disorder, unspecified; F33.9 Major depressive disorder, recurrent, unspecified; F17.200 Nicotine dependence, unspecified, uncomplicated

== ENCOUNTER → 2024-10-31 12:19 | Outpatient (BNVA) | payer OTHER, SELFPAY | PROVIDERS: PCP Internal Medicine; Visit Provider Internal Medicine | DX: F10.27 Alcohol dependence with alcohol-induced persisting dementia (principal); G31.84 Mild cognitive impairment of uncertain or unknown etiology; K29.50 Unspecified chronic gastritis without bleeding; E78.00 Pure hypercholesterolemia, unspecified; D64.9 Anemia, unspecified; J43.8 Other emphysema; M17.0 Bilateral primary osteoarthritis of knee; Z86.19 Personal history of other infectious and parasitic diseases; F41.9 Anxiety disorder, unspecified; F33.9 Major depressive disorder, recurrent, unspecified; F17.210 Nicotine dependence, cigarettes, uncomplicated; R63.6 Underweight; Z68.1 Body mass index [BMI] 19.9 or less, adult | CPT/HCPCS: 96127; 99212 ==

== ENCOUNTER → 2024-11-30 23:59 | Outpatient (BNV) | payer OTHER, SELFPAY | PROVIDERS: PCP Internal Medicine; Visit Provider Internal Medicine | DX: K82.1 Hydrops of gallbladder (principal); K80.00 Calculus of gallbladder with acute cholecystitis without obstruction; D49.89 Neoplasm of unspecified behavior of other specified sites | CPT/HCPCS: G0180 ==